=== PATIENT | male | born 1960 | race Caucasian/White ===

== ENCOUNTER 2023-05-18 07:24 | Inpatient (IN) ==
[2023-05-18 08:08] LABS: Basophils # (auto) 0.05 K/uL (0.00-0.20); Basophils % (auto) 0.5 %; Eosinophils # (auto) 0.06 K/uL (0.00-0.50); Eosinophils % (auto) 0.6 %; Hematocrit (blood only) 38.9 % (42.0-52.0); Hemoglobin 12.6 g/dl (14.0-18.0); Immature Granulocytes # (auto) 0.04 K/uL (0.01-0.20); Immature Granulocytes % (auto) 0.4 %; Lymphocytes # (auto) 2.36 K/uL (1.20-3.40); Lymphocytes % (auto) 22.3 %; Mean Corpuscular Hemoglobin 27.7 pg (25.0-34.0); Mean Corpuscular Hgb Conc 32.4 g/dL (32.0-36.0); Mean Corpuscular Volume 85.5 fL (80.0-100.0); Mean Platelet Volume 10.4 fL (9.4-12.4); Monocytes # (auto) 0.76 K/uL (0.11-0.59); Monocytes % (auto) 7.2 %; Neutrophils # (auto) 7.29 K/uL (1.40-6.50); Platelet Count 303 K/uL (130-400); RDW Coefficient of Variation 14.4 % (11.5-14.5); RDW Standard Deviation 44.4 fL (36.4-46.3); Red Blood Count 4.55 M/uL (4.70-6.10); White Blood Count 10.56 K/ul (4.8-10.8)
[2023-05-18 08:29] LABS: Alanine Aminotransferase 23 U/L (7-52); Albumin Globulin Ratio 1.2 (0.9-2); Albumin Level 4.6 gm/dl (3.4-5.0); Alkaline Phosphatase 81 U/L (34-104); Anion Gap 11 (3-11); Bilirubin,Total 0.7 mg/dl (0.2-1.0); Blood Urea Nitrogen 12 mg/dl (6-23); Calcium 9.6 mg/dl (8.6-10.3); Carbon Dioxide 23 mmol/L (21-32); Chloride 102 mmol/L (98-107); Creatinine Clr Calc Pharmacy 125.9 ml/min; Est GFR (African American) 109.4 ml/min; Est GFR (Non-African American) 94.4 ml/min; Globulin 3.9 gm/dl (2.5-4.0); Glucose 180 mg/dl (70-99(Fasting)); Magnesium 1.9 mg/dl (1.7-2.4); Sodium 136 mmol/L (136-145); Total Protein 8.5 gm/dl (6.0-8.3)
--- NOTE | 2023-05-18 08:33 | CT Scan Report ---
CT head/brain wo con CLINICAL HISTORY: 63 years-old Male with AMS. Acutely altered mental status TECHNIQUE: Multiple axial CT images of the head were obtained without contrast. A dose lowering tech nique was utilized adhering to the principles of ALARA. CT DOSE: 625.8 mGy.cm COMPARISON: None. FINDINGS: No acute intracranial hemorrhage, midline shift, intracranial mass, hydrocephalus, territorial ischem ia or abnormal extra-axial collection. Calcifications of the falx cerebri. Mild involutional changes. Study is mildly motion degraded. The calvarium is intact. The paranasal sinuses, mastoid air cells, and middle ear cavities are clear . IMPRESSION: No acute intracranial abnormality. ACT 112: Negative or not required by law. The above report was generated using voice recognition software. It may contain grammatical, syntax o r spelling errors. Electronically signed by: Vicente Farnsworth M.D. 05/18/2023 8:31 AM
--- NOTE | 2023-05-18 08:37 | XRay Report ---
XR chest 1V portable CLINICAL HISTORY: weakness COMPARISON STUDY: No previous studies for comparison. FINDINGS: Lung volumes are at the lower limits of normal. Lungs are clear. There is no pneumothorax o r pleural effusion. The cardiac silhouette is mildly enlarged. Mediastinal contours are normal. There is no evidence for pulmonary edema. IMPRESSION: No acute cardiopulmonary findings. ACT 112: Negative or not required by law. Electronically signed by: Roberto Mane M.D. 05/18/2023 8:35 AM
[2023-05-18] MEDS: QUEtiapine FUMARATE 25 MG TABLET PO STA (08:43)
[2023-05-18] MEDS: SODIUM CHLORIDE 0.9% 1,000 ML IV SCH (08:45)
[2023-05-18 08:57] LABS: Thyroid Stimulating Hormone 4.067 uIu/ml (0.300-4.500)
[2023-05-18 10:21] LABS: Potassium 3.7 mmol/L (3.5-5.1)
[2023-05-18 10:44] LABS: Appearance Urine Clear (Clear); Bacteria Urine Automated Negative (Negative); Bilirubin Urine Negative (Negative); Blood Urine 2+ (Negative); Cast Urine Automated 0 /lpf (0-5); Color Urine Yellow; Epithelial Cell Urine Auto >30 /lpf (0-5); Glucose Urine UA Negative (Negative); Ketones Urine Negative (Negative); Leukocyte Esterase Urine Negative (Negative); Nitrite Urine Negative (Negative); Protein Urine Negative (Negative); RBC Urine Automated 0-4 /hpf (0-4); Specific Gravity Urine 1.007 (1.000-1.030); Urobilinogen Urine Negative (Negative); pH Urine 7.5 (4.5-7.5)
[2023-05-18 11:07] LABS: Amphetamines+Metham, Urine Neg (Neg); Barbiturates, Urine Neg (Neg); Benzodiazepine, Urine Neg (Neg); Cocaine, Urine Neg (Neg); MDMA (Ecstacy), Urine Neg (Neg); Marijuana, Urine Neg (Neg); Methadone, Urine Neg (Neg); Opiate, Urine Neg (Neg); Phencyclidine, Urine Neg (Neg)
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
[2023-05-18] MEDS: LORazepam 1 MG/1 ML SYR ED Inj Use IV STA ×2 (13:29→14:23)
[2023-05-18] MEDS: MULTI-VITAMIN INFUSION 10 ML, THIAMINE HCL 100 MG, FOLIC ACID 1 MG in SODIUM CHLORIDE 0... IV ONE (14:17)
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
[2023-05-18] MEDS: THIAMINE HCL 500 MG in SODIUM CHLORIDE 0.9% 50 ML IV SCH (16:11)
[2023-05-18] MEDS ORDERED: LORazepam 1 MG in SYRINGE 0.5 ML IV PRN (17:01)
[2023-05-18] MEDS ORDERED: ONDANSETRON INJ 2 MG/ML 2 ML VIAL IV PRN (17:01)
[2023-05-18] MEDS ORDERED: POLYETHYLENE (MIRALAX) 17 GM PACK PO PRN (17:01)
[2023-05-18] MEDS ORDERED: ACETAMINOPHEN 325 MG TAB PO PRN (17:01)
[2023-05-18] MEDS ORDERED: GLUCAGON FOR INJ 1 MG VIAL SQ PRN (17:12)
[2023-05-18] MEDS ORDERED: DEXTROSE 50% 50 ML SYRINGE IV PRN (17:12)
[2023-05-18] MEDS ORDERED: GLUCOSE 40% GEL 15 GM TUBE PO PRN (17:12)
[2023-05-18] MEDS ORDERED: GLUCOSE 10 TAB/TUBE PO PRN (17:12)
[2023-05-18] MEDS ORDERED: CARBOHYDRATES FOR HYPOGLYCEMIA PO PRN (17:12)
[2023-05-18] MEDS: METOPROLOL TARTRATE 1 MG/ML VIAL IV STA (18:04)
[2023-05-18] MEDS: ENOXAPARIN INJ 40 MG/0.4 ML SYR SQ SCH (18:05)
[2023-05-18] MEDS: INSULIN ASPART PER UNIT CHARGE SC SCH (21:01)
[2023-05-18] MEDS: METOPROLOL TARTRATE 50 MG TAB PO SCH (21:04)
[2023-05-18] MEDS: QUEtiapine FUMARATE 25 MG TABLET PO SCH (21:04)
--- OUTSIDE RECORDS SUMMARY | 2023-05-19 03:22 | External Medical Summary ---
Author Name Unknown Address Unknown Organization K01:[facility] [place] [address] [place] [address] Laboratory Report Ordering Provider Test Date Status ESTHELAFRANDY 04/02/2023 11:00:02 Final Observation Date Value Abnormality Reference (Units ) Status HbA1C 04/02/2023 11:00:02 7.5 Above high normal 4. 0-5.6 (%) Final The use of HbA1c to monitor glycemic status is based on normal hemoglobin and HbA composition. This test should not be used in patients with abnormal hemoglobin that affects the half life of the red blood cell or the in vivo glycation rates. Glucose, estimated average 04/02/2023 11:00:02 169 Above high normal <126 (mg/dL) Vimal ryan Performing Location [facility] [place] [facility] [address] [place] [address]
--- OUTSIDE RECORDS SUMMARY | 2023-05-19 03:22 | External Medical Summary | Summary of Care ---
Author Name Unknown Organization [facility] Address [address] [place] [address] Phone [phone] Care Team Providers Care Director Of Pulmonary Unit Name Role Phone Rajendra Sanchez MD Primary Care Provider Encounter Details Date Type Department Care Team (Late st Contact Info) Description 04/02/2023 Orders Only Laboratory, [facility] [address] [place] [phone] Armida Boudreaux PA-C [address] [facility] [place], [place] [id number] Diabetic neuropathy (HCC)*; HTN, goal below 140/90; Dyslipidemia, goal LDL below 160; Obstructive sleep apnea syndrome; Esophageal reflux Allergies No known active allergiesdocumented as of this encounter (statuses as of 04/02/2023) Medications Medication Sig Dispensed Refills Start Date End Date Status Nortriptyline HCl 75 MG Oral Capsule Take 1 Capsule by mouth at bedtime. 0 Active Trulicity 0.75 MG/0.5ML Subcutaneous Solution Pen-injector (Dulaglutide) Inject 0.75 mg under the skin once a week. 0 Active lamoTRIgine 100 MG Oral Tablet Take 1 Tablet by mouth in the morning and 1 Tablet before bedtime. 0 Active Pantoprazole Sodium 20 MG Oral Tablet Delayed Release Take 1 Tablet by mouth in the morning. 0 Active Gabapentin 100 MG Oral Capsule (Neurontin) Take 2 Capsules by mouth at bedtime. Takes 100 mg AM and 200 mg PM 0 Active QUEtiapine Fumarate 50 MG Oral Tablet Take 1 Tablet by mouth at bedtime. 0 Active Aspirin 81 MG Oral Tablet Chewable Take 1 Tablet by mouth in the morning. 0 Active Metoprolol Tartrate 50 MG Oral Tablet (Lopressor) Take 1 Tablet by mouth in the morning and 1 Tablet before bedtime. 0 Active Gabapentin 100 MG Oral Capsule (Neurontin) Take 1 Capsule by mouth in the morning. Takes 100 mg AM and 200 mg PM. 0 Active Glimepiride 1 MG Oral Tablet (Amaryl) Take 1 Tablet by mouth daily before breakfast. 0 Active Vitamin D3 25 MCG (1000 UT) Oral Tablet Take 5 Tablets by mouth in the morning. 0 Active metFORMIN HCl 1000 MG Oral Tablet (Glucophage) 0 06/27/2022 Active Benazepril HCl 20 MG Oral Tablet (Lotensin) Take 1 Tablet by mouth in the morning. 1/2 tab daily. 0 Active Melatonin 3 MG Oral Capsule Take 1 Capsule by mouth at bedtime. 0 Active Celecoxib 200 MG Oral Capsule (CeleBREX) Take 1 Capsule by mouth once. TAKE NIGHT BEFORE SURGERY 0 Active Apixaban 2.5 MG Oral Tablet (Eliquis) Take 1 Tablet by mouth in the morning and 1 Tablet before bedtime. Start taking AFTER YOUR SURGERY. Take 1 tablet two times per day for 30 days.. 60 Tablet 0 12/01/2022 Active Additional Information Patient not taking.Reported on 02/05/2023 Acetaminophen 500 MG Oral Capsule Take 2 Capsules by mouth in the morning and 2 Capsules at noon and 2 Capsules before bedtime. 0 12/10/2022 Active traMADol HCl 50 MG Oral Tablet (Ultram) Take 1 Tablet by mouth every 6 hours as needed for Pain, Moderate (May take an additional tablet every 6 hours as needed for severe pain). moderate pain 4-7/10 or severe pain 8-10/10. MMD: 8 tablets/day 30 Tablet 0 12/10/2022 Active Additional Information Patient not taking.Reported on 02/05/2023 hydroCHLOROthiazide 25 MG Oral Tablet (Hydrodiuril) Take 1 Tablet by mouth in the morning. 0 12/17/2018 Active documented as of this encounter (statuses as of 04/02/2023) Active Problems Problem Noted Date Diagnosed Date Primary osteoarthritis of left hip 10/10/2022 Overview: Added automatically from request for surgery [id number] Generalized pain 10/10/2022 Overview: Added automatically from request for surgery [id number] Encounter for therapeutic drug monitoring 2022 Overview: Added automatically from request for surgery [id number] Other specified pre-operative examination 2022 Overview: Added automatically from request for surgery [id number] Dislocation of hip prosthesis 10/10/2022 Anemia 06/09/2021 Sepsis 06/08/2021 Cellulitis of right lower extremity 06/08/2021 Primary hypertension 06/08/2021 Bipolar affective disorder, currently active Elevated liver enzymes 06/08/2021 Type 2 diabetes mellitus wit hout complication, without long-term current use of insulin 06/08/2021 Gastroesophageal reflux disease without esophagi tis 06/08/2021 Primary osteoarthritis of right hip 06/08/2021 MALIA (obstructive sleep apnea) 06/08/2021 Hyperlipidemia 08/29/2011 documented as of this encounter (statuses as of 04/02/2023) Resolved Problems Problem Noted Date Diagnosed Date Resolved Date SBO (small bowel obstruction) 03/12/2022 03/18/2022 High anion gap metabolic acidosis 03/12/2022 03/18/2022 SANDRA (acute kidney injury) 03/12/2022 Shock 03/12/2022 03/18/2022 documented as of this encounter (statuses as of 04/02/2023) Immunizations Name Administration Dates Next Due Seasonal Influenza, PF, 6 M & above, IM , (FluLaval or Fluzone) 03/18/2022 documented as of this encounter Social History Tobacco Use Types Packs/Day Years Used Date Smoking Tobacco: Every Day Cigars Smokeless Tobacco: Former Chew, Snuff Alcohol Use Standard Drinks/Week Comments Not Currently 0 (1 standard drink = 0.6 oz pure alcohol) 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 No 05/28/2022 Are you blind or do you have serious difficulty seeing, even when wearing glasses? No 05/28/2022 Do you have serious difficul ty walking or climbing stairs? (5 years old or older) No 05/28/2022 Do you have difficulty dress ing or bathing? (5 years old or older) No 05/28/2022 Because of a physical, menta l, or emotional condition, do you have difficulty doing errands alone such as visiting a doctor s office or shopping? (15 years old or older) No 05/29/19 Cognitive Status Response Date of Assessm ent Because of a physical, menta l, or emotional condition, do you have serious difficulty concentrating, remembering, or making decisions? (5 years old or older) No 05/28/2022 documented as of this encounter Plan of Treatment Upcoming Encounters Date Type Department Care Team (Late st Contact Info) Description 12/10/2023 3:00 PM EDT Office Visit Orthopaedics [facility] [address] [facility] [address] [place] [phone] Collin Mon MD [address] [place] [address] Pending Results Name Type Priority Associated Diagnoses Date /Time CBC WITH WBC DIFFERENTIAL Lab Routine Diabetic neuropathy (HCC) HTN, goal below 140/90 Dyslipidemia, goal LDL below 160 Obstructive sleep apnea syndrome Esophageal reflux 04/02/2023 11:00 AM EST COMPREHENSIVE METABOLIC PANEL Lab Routine Diabetic neuropathy (HCC) HTN, goal below 140/90 Dyslipidemia, goal LDL below 160 Obstructive sleep apnea syndrome Esophageal reflux 04/02/2023 11:00 AM EST LIPID PANEL WITHOUT DIRECT LDL Lab Routine Diabetic neuropathy (HCC) HTN, goal below 140/90 Dyslipidemia, goal LDL below 160 Obstructive sleep apnea syndrome Esophageal reflux 04/02/2023 11:00 AM EST HEMOGLOBIN A1C Lab Routine Diabetic neuropathy (HCC) HTN, goal below 140/90 Dyslipidemia, goal LDL below 160 Obstructive sleep apnea syndrome Esophageal reflux 04/02/2023 11:00 AM EST Scheduled Orders Name Type Priority Associated Diagnoses Orde r Schedule CBC WITH WBC DIFFERENTIAL Lab Routine Diabetic neuropathy (HCC) HTN, goal below 140/90 Dyslipidemia, goal LDL below 160 Obstructive sleep apnea syndrome Esophageal reflux Expected: 04/02/2023, Expires: 04/02/2024 COMPREHENSIVE METABOLIC PANEL Lab Routine Diabetic neuropathy (HCC) HTN, goal below 140/90 Dyslipidemia, goal LDL below 160 Obstructive sleep apnea syndrome Esophageal reflux Expected: 04/02/2023, Expires: 04/02/2024 LIPID PANEL WITHOUT DIRECT LDL Lab Routine Diabetic neuropathy (HCC) HTN, goal below 140/90 Dyslipidemia, goal LDL below 160 Obstructive sleep apnea syndrome Esophageal reflux Expected: 04/02/2023, Expires: 04/02/2024 HEMOGLOBIN A1C Lab Routine Diabetic neuropathy (HCC) HTN, goal below 140/90 Dyslipidemia, goal LDL below 160 Obstructive sleep apnea syndrome Esophageal reflux Expected: 04/02/2023, Expires: 04/02/2024 ALBUMIN / CREATININE RATIO, URINE Lab Routine Diabetic neuropathy (HCC) HTN, goal below 140/90 Dyslipidemia, goal LDL below 160 Obstructive sleep apnea syndrome Esophageal reflux Expected: 04/02/2023, Expires: 04/02/2024 Health Maintenance Due Date Last Done Comments DISCUSS TOBACCO CESSATION (REFER TO SMARTSET #6967) 1959 COVID-19 Vaccine (#1) 1959 Depression Screening 1971 Diabetic Eye Exam 1977 Diabetic Foot Exam 1977 Hepatitis C Screening 1977 Cologuard 2004 Colonoscopy 2004 Colorectal Cancer Screening 2004 Fecal Occult Blood Test 2004 Sigmoidoscopy 2004 Pneumococcal Vaccine: Pediatrics (0 to 5 Years) and At-Risk Patients (6 to 64 Years) (2 - PCV) 10/31/2008 11/01/2007 Zoster Vaccines (1 of 2) 2009 DTaP,Tdap,and Td Vaccines (2 - Td or Tdap) 03/02/2018 03/02/2008 Hepatitis B (1 of 3 - Risk 3-dose series) 2019 Influenza Vaccine (FLU shot) (#1) 2022 03/18/2022, 03/02/2008, 12/08/2002 Albumin/Creatinine Ratio 02/21/2023 02/21/2022 HbA1c 05/05/2023 11/04/2022, 05/02/2022, 05/29/2022, Additional history exists GFR 12/11/2023 12/10/2022, 10/17, 05/30/2022, Additional history exists Lipid Panel 11/05/2027 11/04/2022, 01/0 07/2022, 02/05/2021, Additional history exists GARDASIL-HPV IMMUNIZATION SERIES Aged Out No longer eligible based on patient's age to complete this topic MENINGOCOCCAL (MENACTRA/MENVEO) Aged Out No longer eligible based on patient's age to complete this topic documented as of this encounter Medical Devices Implanted Type Area Er Rn Device Identifier Shelf Expiration Date Model / Serial / Lot Liner Acetabular [place] Altrx 10d +4mm Od54 Mm Id36 Mm Hip - [id number] Implanted:Qty: 1 on 12/09/2022 by Collin Mon MD at OR [facility] Left: Hip [employer] 10/16/2026 [id number] / / [id number] documented as of this encounter Visit Diagnoses Diagnosis Diabetic neuropathy (HCC)- Primary Type II or unspecified type diabetes mellitus with neurological manifestations, not stated as uncontrolled HTN, goal below 140/90 Unspecified essential hypertension Dyslipidemia, goal LDL below 160 Other and unspecified hyperlipidemia Obstructive sleep apnea syndrome Obstructive sleep apnea (adult) (pediatric) Esophageal reflux documented in this encounter Advance Directives Latest Code Status on File Code Status Date Activated Date Inactivated Comments Full Code 12/09/2022 4:30 PM 12/10/2022 6:45 PM Thi s order reflects the patients wishes and were consensually agreed upon. Question Answer Comments Discussion of Advance Directives occurred with: Not Discussed due to patient's condition Code Status History Code Status Date Activated Date Inactivated Comments Full Code 12/09/2022 8:18 AM 12/09/2022 4:30 PM Thi s order reflects the patients wishes and were consensually agreed upon. Question Answer Comments Discussion of Advance Directives occurred with: Not Discussed due to patient's condition Full Code 05/28/2022 11:56 AM 05/30/2022 3:43 PM This order reflects the patients wishes and were consensually agreed upon. Question Answer Comments Discussion of Advance Directives occurred with: Patient Does the patient have a Living Will? No Does the patient have Health Care Power of Spragger? No Full Code 03/12/2022 1:21 AM 03/18/2022 5:04 PM This order reflects the patients wishes and were consensually agreed upon. Question Answer Comments Discussion of Advance Directives occurred with: Patient Full Code 06/08/2021 12:24 PM 06/10/2021 4:51 PM This order reflects the patients wishes and were consensually agreed upon. Question Answer Comments Discussion of Advance Directives occurred with: Patient Does the patient have a Living Will? No Does the patient have Health Care Power of Spragger? No Care Teams Director Of Pulmonary Unit Relationship Specialty Start Date End Date Rajendra Sanchez MD [address] [place] [address] PCP - General Internal Medicine 04/23/18 documented as of this encounter
--- OUTSIDE RECORDS SUMMARY | 2023-05-19 03:22 | External Medical Summary ---
Author Name Unknown Address Unknown Organization K1G:LABORATORY [facility] - [address] [facility] [address] Laboratory Report Ordering Provider Test Date Status FRANDY PROCTOR 04/02/2023 11:00:02 Final Observation Date Value Abnormality Reference (Units ) Status SYNC LEUKOCYTES IN BLOOD BY AUTOMATED COUNT 04/02/2023 11:00:02 8.73 4.00-10.80 (K/uL) Final Segs 04/02/2023 11:00:02 58.1 40.0-75.0 (%) Final Lymphs % 04/02/2023 11:00:02 31.5 18.0-42.0 (%) Final Monos 04/02/2023 11:00:02 8.8 1.0-11.0 (%) Final Eosinophils 04/02/2023 11:00:02 1.3 0.0-6.0 (%) Final Basos 04/02/2023 11:00:02 0.3 0.0-2.0 (%) Final Absolute Segs 04/02/2023 11:00:02 5.07 1.80-7.70 (K/uL) Final Lymphs, absolute 04/02/2023 11:00:02 2.75 1.00-4.80 (K/ul) Final Monos, Abs 04/02/2023 11:00:02 0.77 0.00-1.10 (K/uL) Final Eos, Abs 04/02/2023 11:00:02 0.11 0.00-0.70 (K/uL) Final Basos, Abs 04/02/2023 11:00:02 0.03 0.00-0.20 (K/uL) Final Performing Location [facility] [address] [facility] [address]
--- OUTSIDE RECORDS SUMMARY | 2023-05-19 03:22 | External Medical Summary ---
Author Name Unknown Address Unknown Organization K1G:LABORATORY [facility] - [address] [facility] [address] Laboratory Report Ordering Provider Test Date Status FRANDY PROCTOR 04/02/2023 11:00:02 Final Observation Date Value Abnormality Reference (Units ) Status BUN 04/02/2023 11:00:02 15 6-20 (mg/dL) Final Creatinine 04/02/2023 11:00:02 0.8 0.6-1.2 (mg/dL) Final Glomerular filtration rate/1.73 sq M.predicted [Volume Rate/Area] in Serum, Plasma or Blood by Creatinine-based formula (CKD-EPI) 04/02/2023 11:00:02 >90 >=60 (mL/min) Final eGFR is calculated based on the CKD-EPI 2020 equation SODIUM 04/02/2023 11:00:02 137 135-146 (m mol/L) Final Potassium 04/02/2023 11:00:02 4.4 3.5-5.1 (m mol/L) Final Cl 04/02/2023 11:00:02 100 98-107 (mm ol/L) Final CO2 04/02/2023 11:00:02 25 22-32 (mmo l/L) Final Anion gap 04/02/2023 11:00:02 12 7-15 (mmol /L) Final Glucose 04/02/2023 11:00:02 133 Above high normal 70 -120 (mg/dL) Final Albumin 04/02/2023 11:00:02 4.1 3.8-5.0 (g /dL) Final AST (Aspartate aminotransferase) 04/02/2023 11:00:02 13 10-50 (U/L) Fin al Alk Phos 04/02/2023 11:00:02 85 35-130 (U/ L) Final Bilirubin, Total 04/02/2023 11:00:02 0.2 <=1 .2 (mg/dL) Final Calcium 04/02/2023 11:00:02 9.1 8.4-10.2 ( mg/dL) Final Protein 04/02/2023 11:00:02 7.5 6.0-8.3 (g /dL) Final ALT (Alanine aminotransferase) 04/02/2023 11:00:02 18 10-50 (U/L) Vimal ryan Performing Location LABORATORY [facility] - [address] [facility] [address]
--- OUTSIDE RECORDS SUMMARY | 2023-05-19 03:22 | External Medical Summary ---
Author Name Unknown Address Unknown Organization K01:[facility] [place] [address] [place] [address] Laboratory Report Ordering Provider Test Date Status FRANDY PROCTOR 04/02/2023 11:09:24 Final Normal: <30 mg/g creatinine< br/>High: 30-300 mg/g creatinine
Very High: >300 mg/g creatinine
Nephrotic: >2200 mg/g creatinine Observation Date Value Abnormality Reference (Units ) Status Albumin, Urine 04/02/2023 11:09:24 1.93 (mg/dL) Final Creatinine, Urine 04/02/2023 11:09:24 206 (mg/dL) Final Albumin/Creatinine [Mass Ratio] in Urine 04/02/2023 11:09:24 9 <30 (mg/g Creat) Final Performing Location [facility] [place] [address] [place] [address]
--- OUTSIDE RECORDS SUMMARY | 2023-05-19 03:22 | External Medical Summary ---
Author Name Unknown Address Unknown Organization K1G:LABORATORY [facility] - [address] [facility] [address] Laboratory Report Ordering Provider Test Date Status FRANDY PROCTOR 04/02/2023 11:00:02 Final Observation Date Value Abnormality Reference (Units ) Status WBC, Total 04/02/2023 11:00:02 8.73 4.00-10.8 0 (K/uL) Final RBC 04/02/2023 11:00:02 4.23 4.50-5.25 (M/uL) Final Hemoglobin 04/02/2023 11:00:02 11.7 Below low normal 14 .0-16.8 (g/dL) Final HCT 04/02/2023 11:00:02 37.4 Below low normal 40. 0-48.4 (%) Final MCV 04/02/2023 11:00:02 88.4 82.0-99.5 (fL) Final MCH 04/02/2023 11:00:02 27.7 27.0-34.0 (pg) Final MCHC 04/02/2023 11:00:02 31.3 32.0-36.0 (g/dL) Final RDW 04/02/2023 11:00:02 13.5 11.5-15.5 (%) Final Platelets 04/02/2023 11:00:02 284 140-400 (K /uL) Final MPV 04/02/2023 11:00:02 10.7 6.6-11.1 ( fL) Final Performing Location [facility] [address] [facility] [address]
--- OUTSIDE RECORDS SUMMARY | 2023-05-19 03:22 | External Medical Summary | Summary of Care ---
Author Name Unknown Organization [facility] Address [address] [place] [address] Phone [phone] Care Team Providers Care Dyed Raw Stock Blower Feeder Name Role Phone Rajendra Sanchez MD Primary Care Provider Reason for Visit * Reason Comments Outpatient Testing Encounter Details Date Type Department Care Team (Late st Contact Info) Description 04/02/2023 10:50 AM EST Laboratory Laboratory, [id number] [place] [address] Gj, Lab [facility] [place] [address] Diabetic neuropathy (HCC); HTN, goal below 140/90; Dyslipidemia, goal LDL [...] Overview: Added automatically from request for surgery [id number] Generalized pain 10/10/2022 Overview: Added automatically from request for surgery [id number] Encounter for therapeutic drug monitoring 2022 Overview: Added automatically from request for surgery [id number] Other specified pre-operative examination 2022 Overview: Added automatically from request for surgery [id number] Dislocation of hip prosthesis 10/10/2022 Anemia 06/09/2021 [...] 12/10/2023 3:00 PM EDT Office Visit Orthopaedics [facility] [address] [facility] [address] [place] [phone] Collin Mon MD [address] [place] [address] Pending Results Name Type Priority Associated Diagnoses Date /Time LIPID PANEL WITHOUT DIRECT LDL Lab Routine Diabetic neuropathy (HCC) HTN, goal below 140/90 Dyslipidemia, goal LDL below 160 Obstructive sleep apnea syndrome Esophageal reflux 04/02/2023 11:00 AM EST HEMOGLOBIN A1C Lab Routine Diabetic neuropathy (HCC) HTN, goal below 140/90 Dyslipidemia, goal LDL below 160 Obstructive sleep apnea syndrome Esophageal reflux 04/02/2023 11:00 AM EST ALBUMIN / CREATININE RATIO, URINE Lab Routine Diabetic neuropathy (HCC) HTN, goal below 140/90 Dyslipidemia, goal LDL below 160 Obstructive sleep apnea syndrome Esophageal reflux 04/02/2023 11:09 AM EST Health Maintenance Due Date Last Done Comments DISCUSS TOBACCO CESSATION (REFER TO SMARTSET #5112) 1960 COVID-19 Vaccine (#1) 1960 Depression Screening [...] Albumin/Creatinine Ratio 02/21/2023 02/21/2022 HbA1c 05/05/2023 11/04/2022, 06/18, 05/29/2022, Additional history exists GFR 04/02/2024 04/02/2023, 11/17, 11/04/2022, Additional history exists Lipid Panel 11/05/2027 11/04/2022, 07/2022, 02/05/2021, Additional history exists GARDASIL-HPV IMMUNIZATION SERIES Aged Out No longer eligible based on patient's age to complete this topic MENINGOCOCCAL (MENACTRA/MENVEO) Aged Out No longer eligible based on patient's age to complete this topic documented as of this encounter Medical Devices Implanted Type Area Applications Support Lead Device Identifier Shelf Expiration Date Model / Serial / Lot Liner Acetabular [place] Altrx 10d +4mm Od54 Mm Id36 Mm Hip - [id number] Implanted:Qty: 1 on 12/09/2022 by Collin Mon MD at OR [facility] Left: Hip [employer] DEPU[employer] 10/16/2026 [id number] / / [id number] documented as of this encounter Procedures Procedure Name Priority Date/Time Associated Diagnosis Comments DIFFERENTIAL, AUTOMATED Routine 04/02/2023 11:00 AM EST Diabetic neuropathy (HCC) HTN, goal below 140/90 Dyslipidemia, goal LDL below 160 Obstructive sleep apnea syndrome Esophageal reflux COMPREHENSIVE METABOLIC PANEL Routine 04/02/2023 11:00 AM EST Diabetic neuropathy (HCC) HTN, goal below 140/90 Dyslipidemia, goal LDL below 160 Obstructive sleep apnea syndrome Esophageal reflux CBC Routine 04/02/2023 11:00 AM EST Diabetic neuropathy (HCC) HTN, goal below 140/90 Dyslipidemia, goal LDL below 160 Obstructive sleep apnea syndrome Esophageal reflux CBC Routine 04/02/2023 11:00 AM EST Diabetic neuropathy (HCC) HTN, goal below 140/90 Dyslipidemia, goal LDL below 160 Obstructive sleep apnea syndrome Esophageal reflux documented in this encounter Results * DIFFERENTIAL, AUTOMATED (04/02/2023 11:00 AM EST) WBC 8.73 4.00 - 10.80 K/uL 04/02/2023 11:37 AM EST LABORATORY [facility] Neutrophils % 58.1 40.0 - 75.0 % 04/02/2023 11:37 AM EST LAB[facility]ATORY [facility] Lymphocytes % 31.5 18.0 - 42.0 % 04/02/2023 11:37 AM EST LAB[facility]ATORY [facility] Monocytes % 8.8 1.0 - 11.0 % 04/02/2023 11:37 AM EST LAB[facility]ATORY [facility] Eosinophils % 1.3 0.0 - 6.0 % 04/02/2023 11:37 AM EST LAB[facility]ATORY [facility] Basophils % 0.3 0.0 - 2.0 % 04/02/2023 11:37 AM EST LAB[facility]ATORY [facility] Absolute Neutrophils 5.07 1.80 - 7.70 K/uL 04/02/2023 11:37 AM EST LAB[facility]ATORY [facility] Absolute Lymphocytes 2.75 1.00 - 4.80 K/ul 04/02/2023 11:37 AM EST LAB[facility]ATORY [facility] Absolute Monocytes 0.77 0.00 - 1.10 K/uL 04/02/2023 11:37 AM EST LAB[facility]ATORY [facility] Absolute Eosinophils 0.11 0.00 - 0.70 K/uL 04/02/2023 11:37 AM EST LAB[facility]ATORY [facility] Absolute Basophils 0.03 0.00 - 0.20 K/uL 04/02/2023 11:37 AM EST LAB[facility]ATORY [facility] Blood Venous blood specimen / Unknown Venipuncture / Unknown 04/02/2023 11:00 AM EST 04/02/2023 11:13 AM EST Armida Boudreaux PA-C LAB BLOOD O RDERABLES LABORATORY [address] [address] * (ABNORMAL) CBC (04/02/2023 11:00 AM EST) Pathologist [facility] WBC 8.73 4.00 - 10.80 K/uL 04/02/2023 11:37 AM EST LABORATORY [facility] RBC 4.23 4.50 - 5.25 M/uL 04/02/2023 11:37 AM EST LABORATORY [facility] HGB 11.7(L) 14.0 - 16.8 g/dL 04/02/2023 11:37 AM EST LABORATORY [facility] HCT 37.4(L) 40.0 - 48.4 % 04/02/2023 11:37 AM EST LABORATORY [facility] MCV 88.4 82.0 - 99.5 fL 04/02/2023 11:37 AM EST LABORATORY [facility] MCH 27.7 27.0 - 34.0 pg 04/02/2023 11:37 AM EST LABORATORY [facility] MCHC 31.3 32.0 - 36.0 g/dL 04/02/2023 11:37 AM EST LABORATORY [facility] RDW 13.5 11.5 - 15.5 % 04/02/2023 11:37 AM EST LABORATORY [facility] PLT 284 140 - 400 K/uL 04/02/2023 11:37 AM EST LABORATORY [facility] MPV 10.7 6.6 - 11.1 fL 04/02/2023 11:37 AM EST LABORATORY [facility] Blood Venous blood specimen / Unknown Venipuncture / Unknown 04/02/2023 11:00 AM EST 04/02/2023 11:13 AM EST Armida Boudreaux PA-C LAB BLOOD [facility] LABORATORY [address] [address] * (ABNORMAL) COMPREHENSIVE METABOLIC PANEL (04/02/2023 11:00 AM EST) Pathologist [facility] BUN 15 6 - 20 mg/dL 04/02/2023 11:48 AM EST LABORATORY [facility] Creatinine 0.8 0.6 - 1.2 mg/dL 04/02/2023 11:48 AM EST LABORATORY [facility] Estimated Glomerular Filtration Rate >90 >=60 mL/min 04/02/2023 11:48 AM EST LABORATORY [facility] Comment:eGFR is calculated b ased on the CKD-EPI 2020 equation Sodium 137 135 - 146 mmol/L 04/02/2023 11:48 AM EST LABORATORY [facility] Potassium 4.4 3.5 - 5.1 mmol/L 04/02/2023 11:48 AM EST LABORATORY [facility] Chloride 100 98 - 107 mmol/L 04/02/2023 11:48 AM EST LABORATORY [facility] CO2 25 22 - 32 mmol/L 04/02/2023 11:48 AM EST LABORATORY [facility] Anion Gap 12 7 - 15 mmol/L 04/02/2023 11:48 AM EST LABORATORY [facility] Glucose 133(H) 70 - 120 mg/dL 04/02/2023 11:48 AM EST LABORATORY [facility] Albumin 4.1 3.8 - 5.0 g/dL 04/02/2023 11:48 AM EST LABORATORY [facility] AST 13 10 - 50 U/L 04/02/2023 11:48 AM EST LABORATORY [facility] Alkaline Phosphatase 85 35 - 130 U/L 04/02/2023 11:48 AM EST LABORATORY [facility] Bilirubin, Total 0.2 <=1.2 mg/dL 04/02/2023 11:48 AM EST LABORATORY [facility] Calcium 9.1 8.4 - 10.2 mg/dL 04/02/2023 11:48 AM EST LABORATORY [facility] Protein 7.5 6.0 - 8.3 g/dL 04/02/2023 11:48 AM EST LABORATORY [facility] ALT 18 10 - 50 U/L 04/02/2023 11:48 AM EST LABORATORY [facility] Blood Venous blood specimen / Unknown Venipuncture / Unknown 04/02/2023 11:00 AM EST 04/02/2023 11:13 AM EST Armida Boudreaux PA-C LAB BLOOD O RDERABLES LABORATORY [facility] [address] [place] [address] documented in this encounter Visit Diagnoses Diagnosis Diabetic neuropathy (HCC) Type II or unspecified type diabetes mellitus [...] the patient have Health Care Power of Sort Worker? No Full Code 03/12/2022 1:21 AM 03/18/2022 [...] the patient have Health Care Power of Sort Worker? No Care Teams Dyed Raw Stock Blower Feeder Relationship Specialty Start Date End Date Rajendra Sanchez MD [address] [place] [address] PCP - General Internal Medicine 04/23/18 documented as of this encounter
--- OUTSIDE RECORDS SUMMARY | 2023-05-19 03:23 | External Medical Summary | Summary of Care ---
Author Name Unknown Organization [facility] Address [address] [place] [address] Phone [phone] Care Team Providers Care Duct Layer Supervisor Name Role Phone Rajendra Sanchez MD Primary Care Provider Reason for Visit * Reason Comments Pain Limited Range Of Motion Muscle Weakness Abnormal Gait * Evaluate & Treat - Unlimited Visits (Within 10 days (routine)) - Authorized Specialty Diagnoses / Procedures Referred By Contac t Referred To Contact Physical Medicine and Rehab / Physical Medicine And Rehab Diagnoses Primary osteoarthritis of left hip Rajendra Sanchez MD [address] [place] [address] [address] Referral ID Status Reason Start Date Expiration Date Visits Requested Visits Authorized [id number] Authorized Specialty Services Required 02/15/2023 Encounter Details Date Type Department Care Team (Late st Contact Info) Description 01/12/2023 10:30 AM EST Rehab Services Physical Therapy, [facility] [address] [place] [address] Elda Espinosa SUPERVISOR [employer] [address] [place] [address] Muscle weakness*; Limited joint range of motion (ROM); Status post total hip replacement, left Allergies No known active allergiesdocumented as of this encounter (statuses as of 01/13/2023) Medications Medication Sig Dispensed Refills Start Date [...] 30 days.. 60 Tablet 0 12/01/2022 Active Acetaminophen 500 MG Oral Capsule Take 2 [...] 8 tablets/day 30 Tablet 0 12/10/2022 Active hydroCHLOROthiazide 25 MG Oral Tablet (Hydrodiuril) Take 1 Tablet by mouth in the morning. 0 12/17/2018 Active documented as of this encounter (statuses as of 01/13/2023) Active Problems Problem Noted Date Diagnosed Date Primary osteoarthritis of left hip 10/10/2022 Overview: Added automatically from request for surgery [id number] Generalized pain 10/10/2022 Overview: Added automatically from request for surgery [id number] Encounter for therapeutic drug monitoring 2022 Overview: Added automatically from request for surgery [id number] Other specified pre-operative examination 2022 Overview: Added automatically from request for surgery [id number] Dislocation of hip prosthesis 10/10/2022 Anemia 06/09/2021 [...] as of this encounter (statuses as of 01/13/2023) Resolved Problems Problem Noted Date Diagnosed Date Resolved Date SBO (small bowel obstruction) 03/12/2022 03/18/2022 High anion gap metabolic acidosis 03/12/2022 03/18/2022 SANDRA (acute kidney injury) 03/12/2022 Shock 03/12/2022 03/18/2022 documented as of this encounter (statuses as of 01/13/2023) Immunizations Name Administration Dates Next Due SEASONAL INFLUENZA, PF, 6 M & Above, IM , (FLULAVAL or FLUZONE) 03/18/2022 documented as of this encounter Social [...] No 05/28/2022 documented as of this encounter Progress Notes * Elda Espinosa, DANIELLE - 01/12/2023 10:30 AM EST Outpatient Physical Therapy Daily Progress Note Physical Therapy, [place] [address] Patient Name: Remy Hillman Date of : 1960 Age: [age] year old Date: 01/12/2023 Onset Date: 12/09/2022 Start of Care: 12/12/2022 Plan of Care Expiration Date: 02/13/2023 Visit Number: [id number] Precertification dates/visits: 28 Referring Physician: Collin Mon MD Primary Care Physician: Rajendra Sanchez MD Encounter Diagnosis: Left total hip replacement Orders: Postop evaluate and treat Precautions: Anterior approach. Subjective: Pt reported that he is having 0/10 pain. Reported he continues to work 3 days a week and has not returned full duty yet. Pt reported that he can't go to 4 days of working until January 22, 2023. Pt reported that walking longer distances is still hard and he has not been able to get onhis bike at home. Reported that he is still using two hand railings at home when ascending/descending stairs. Pt reported that he see's the benefit of coming to therapy although does not like to be apatient and would like to be done his next visit. Objective: Pt completed one on one TE x 45 minutes to increase strength and mobility in the L LE following THR. The following exercises were performed: Bike: seat 10 x 5 minutes Long arc quads-5# 30x Seated toe raises: 7.5# 30x-did not do today at home at home Short arc quads:5# 30x-did not do today Supine hip abduction-30x 2# home Mini [id number] given Standing leg curl-3x10 (progressed 01/12) Straight leg raise-2x10 independently-did not do today Standing Heel Raises: 3-way 10x each-HEP given Standing [id number] (progressed 01/12)-HEP given Standing hip [id number] (progressed 01/12)-HEP given Standing Hamstrings Stretch: 3x20 seconds bilaterally-HEP given Standing Calf Stretch: 3x20 seconds bilaterally-HEP given FUNCTIONAL OUTCOME MEASURES: Lower Extremity Functional Scale (LEFS) - score 52/80 equals 35% impairment; previous score 29/80 equals 63.75% impairment Assessment: Pt is a 62 y.o. male who underwent a L THR on 12/09/2022. Pt is currently working 3 days a week and will be able to start 4 days starting on January 22. Pt is working on returning to work for 5 days. Pt is still working on LTG although STG have been achieved. Pt also showed improvements on LEFS today. Pt is getting around better although continues to use SPC, still has difficulty walking longer distances, and is working on hip strengthening. Pt reviewed all standing exercises today including stretches as pt continues to perform stretching incorrectly. Pt was given a second HEP for exercises. It was discussed with pt that not all goals were achieved and encouraged pt to come to therapy at least once more with supervising PT; pt verbalized understanding agreeing to come to therapy on Thursday. Pt continues to have limited motion and decreased strength indicating need for more therapy. Goals ongoing. Short Term Goals: 4 weeks Initiate Home Exercise Program Reduce pain to less than 4/10 consistently-0/10 pain achieved Improve ROM to WFL Improve strength by grade-Achieved Increase ambulation to functional community distance with appropriate assistive device-achieved Burglar Alarm Inspector Goals: 6 weeks Independent with Home Exercise Program Reduce pain to less than 2/10-achieved Improve ROM to WNL for a right total hip replacement-achieved Improve strength to 5/5 in quads, hamstrings and 4/5 in hip and 3/5 in plantar flexors: ongoing L hip flexion is 4-/5 Independent ambulation on level surfaces without assistive device Negotiate steps with reciprocal pattern and 1 handrail-ongoing;still utilizing 2 hand railings Return to work without restrictions-still only working 3 days a week Improve score on lower extremity functional scale Plan: Pt would like to come one more session with supervising PT for discharge. Pt is [facility] working[facility] UNTIMED SERVICES: 0 MINUTES TIMED SERVICES: 45 MINUTES TOTAL TIMES: 45 MINUTES Elda Espinosa PTA 01/12/2023 10:30-11:15 AM documented in this encounter Plan of Treatment Upcoming Encounters Date Type Department Care Team (Late st Contact Info) Description 01/14/2023 10:30 AM EST Rehab Services Physical Therapy, [address] [id number] [place] [address] Criss Lewis, PT [facility] [place] [address] 02/05/2023 2:50 PM EST Office Visit Orthopaedics [facility] [address] [place] [address] Collin Mon MD [address] [place] [address] Health Maintenance Due Date Last Done Comments DISCUSS TOBACCO CESSATION (REFER TO SMARTSET #3291) 1960 COVID-19 Vaccine (#1) 1960 Depression Screening [...] this encounter Medical Devices Implanted Type Area Repair Manager Device Identifier Shelf Expiration Date Model / Serial / Lot Liner Acetabular [place] Altrx 10d +4mm Od54 Mm Id36 Mm Hip - [id number] Implanted:Qty: 1 on 12/09/2022 by Collin Mon MD at OR [facility] Left: Hip [employer] DEPUY 10/16/2026 [id number] / / [id number] documented as of this encounter Visit Diagnoses Diagnosis Muscle weakness- Primary Muscle weakness (generalized) Limited joint range of motion (ROM) Status post total hip replacement, left documented in this encounter Advance Directives Latest [...] the patient have Health Care Power of E Commerce Web Developer? No Full Code 03/12/2022 1:21 AM 03/18/2022 [...] the patient have Health Care Power of E Commerce Web Developer? No Care Teams Duct Layer Supervisor Relationship Specialty Start Date End Date Rajendra Sanchez MD [address] [place] [address] PCP - General Internal Medicine 04/23/18 documented as of this encounter
--- OUTSIDE RECORDS SUMMARY | 2023-05-19 03:23 | External Medical Summary | Summary of Care ---
Author Name Unknown Organization [facility] [address] Address [address] [place] [address] Care Team Providers Care Director Craft Center Name Role Phone Rajendra Sanchez MD Primary Care Provider Reason for Visit * Reason Comments Post-Op LTHR 12/09/22 Encounter Details Date Type Department Care Team (Latest Contact Info) Description 02/05/2023 2:50 PM EST Office Visit Orthopaedics [facility] [address] [facility] [address] [phone] Collin Mon MD [address] [facility] [address] [place] [address] Aftercare following surgery of the musculoskeletal system* Allergies No known active allergiesdocumented as of this encounter (statuses as of 02/05/2023) Medications Medication Sig Dispensed Refills Start Date [...] as of this encounter (statuses as of 02/05/2023) Active Problems Problem Noted Date Diagnosed Date Primary osteoarthritis of left hip 10/10/2022 Overview: Added automatically from request for surgery [id number] Generalized pain 10/10/2022 Overview: Added automatically from request for surgery [id number] Encounter for therapeutic drug monitoring 2022 Overview: Added automatically from request for surgery [id number] Other specified pre-operative examination 2022 Overview: Added automatically from request for surgery [id number] Dislocation of hip prosthesis 10/10/2022 Anemia 06/09/2021 [...] as of this encounter (statuses as of 02/05/2023) Resolved Problems Problem Noted Date Diagnosed Date Resolved Date SBO (small bowel obstruction) 03/12/2022 03/18/2022 High anion gap metabolic acidosis 03/12/2022 03/18/2022 SANDRA (acute kidney injury) 03/12/2022 Shock 03/12/2022 03/18/2022 documented as of this encounter (statuses as of 02/05/2023) Immunizations Name Administration Dates Next Due Seasonal [...] as of this encounter Progress Notes * Collin Mon MD - 02/05/2023 3:21 PM EST 62 year old here for an 8 week follow-up status post left total hip replacement. Doing well. No abnormal complaints or concerns. He is no longer taking pain medications. He would like a work note without restrictions. Imaging: AP pelvis and lateral x-rays of the left hip taken today and reviewed show a well-positioned well aligned hip replacement with no loosening, subsidence, fractures, or osteolysis. Exam: Incision looks good. Excellent range of motion. Good strength. Impression: Status post left total hip replacement, doing well. Recommendations: Doing well. Activities as tolerated without restrictions. Follow-up in 10 months for 1 year recheck with x-rays. documented in this encounter Nursing Notes * Wendy Parsons MED ASSIST - 02/05/2023 3:02 PM EST S/p LTHR; he is doing well, no concerns or complaints. He is no longer taking pain medications. 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 documented in this encounter Plan of Treatment Upcoming Encounters Date Type Department Care Team (Late st Contact Info) Description 12/10/2023 3:00 PM EDT Office Visit Orthopaedics [facility] [facility] [address] [place] [phone] Collin Mon MD [address] [facility] [facility] [address] [place] [address] Pending Results Name Type Priority Associated Diagnoses Date /Time XR HIP 1 VIEW INCLUDING AP PELVIS Medical Imaging Routine Aftercare following surgery of the musculoskeletal system 02/05/2023 3:24 PM EST Health Maintenance Due Date Last Done [...] Albumin/Creatinine Ratio 02/21/2023 02/21/2022 HbA1c 05/05/2023 11/04/2022, 0502/2022, 05/29/2022, Additional history exists GFR 12/11/2023 12/10/2022, 10/17, 05/30/2022, Additional history exists Lipid Panel 11/05/2027 11/04/2022, 07/2022, 02/05/2021, Additional history exists GARDASIL-HPV IMMUNIZATION SERIES Aged Out No longer eligible based on patient's age to complete this topic MENINGOCOCCAL (MENACTRA/MENVEO) Aged Out No longer eligible based on patient's age to complete this topic documented as of this encounter Medical Devices Implanted Type Area Manager Food Beverage Device Identifier Shelf Expiration Date Model / Serial / Lot Liner Acetabular Challis Altrx 10d +4mm Od54 Mm Id36 Mm Hip - [id number] Implanted:Qty: 1 on 12/09/2022 by Collin Mon MD at [facility] Left: Hip [employer] DEPUY 10/16/2026 [id number] / / [id number] documented as of this encounter Visit Diagnoses Diagnosis Aftercare following surgery of the musculoskeletal system- Primary Aftercare following surgery of the musculoskeletal system, NEC documented in this encounter Advance Directives Latest [...] the patient have Health Care Power of Pattern Grader? No Full Code 03/12/2022 1:21 AM 03/18/2022 5:04 PM This order reflects the patients wishes and were consensually agreed upon. Question Answer Comments Discussion of Advance Directives occurred with: Patient Full Code 06/08/2021 12:24 PM 06/10/2021 4:51 PM Thi s order reflects the patients wishes and were consensually agreed upon. Question Answer Comments Discussion of Advance Directives occurred with: Patient Does the patient have a Living Will? No Does the patient have Health Care Power of Pattern Grader? No Care Teams Director Craft Center Relationship Specialty Start Date End Date Rajendra Sanchez MD [address] [place] [address] PCP - General Internal Medicine 04/23/18 documented as of this encounter
--- OUTSIDE RECORDS SUMMARY | 2023-05-19 03:23 | External Medical Summary | Summary of Care ---
Author Name Unknown Organization [facility] Address [address] [place] [address] Care Team Providers Care Senior Clinical Consultant Name Role Phone Rajendra Sanchez MD Primary Care Provider Reason for Visit * Reason Onset Date Comments Advice 01/06/2023 Encounter Details Date Type Department Care Team (Late st Contact Info) Description 01/06/2023 Telephone Orthopaedics [facility] [address] [facility] [address] [place] [phone] Collin Mon MD [address] [place] [address] Advice Allergies No known active allergiesdocumented as of this encounter (statuses as of 01/29/2023) Medications Medication Sig Dispensed Refills Start Date [...] as of this encounter (statuses as of 01/29/2023) Active Problems Problem Noted Date Diagnosed Date Primary osteoarthritis of left hip 10/10/2022 Overview: Added automatically from request for surgery [id number] Generalized pain 10/10/2022 Overview: Added automatically from request for surgery [id number] Encounter for therapeutic drug monitoring 2022 Overview: Added automatically from request for surgery [id number] Other specified pre-operative examination 2022 Overview: Added automatically from request for surgery [id number] Dislocation of hip prosthesis 10/10/2022 Anemia 06/09/2021 [...] as of this encounter (statuses as of 01/29/2023) Resolved Problems Problem Noted Date Diagnosed Date Resolved Date SBO (small bowel obstruction) 03/12/2022 03/18/2022 High anion gap metabolic acidosis 03/12/2022 03/18/2022 SANDRA (acute kidney injury) 03/12/2022 Shock 03/12/2022 03/18/2022 documented as of this encounter (statuses as of 01/29/2023) Immunizations Name Administration Dates Next Due Seasonal [...] (15 years old or older) No 05/29/19 23 Cognitive Status Response Date of Assessm ent Because of a physical, menta l, or emotional condition, do you have serious difficulty concentrating, remembering, or making decisions? (5 years old or older) No 05/28/2022 documented as of this encounter Miscellaneous Notes * Addendum Note - Wendy Parsons MED ASSIST - 01/29/2023 8:40 AM EST Addended by: WENDY PARSONS on: 01/29/2023 08:40 AM Modules accepted: Orders * Addendum Note - Mima Shipley LPN - 01/07/2023 9:27 AM ESTAddended by: MIMA SHIPLEY on: 01/07/2023 09:27 AM Modules accepted: Orders * Telephone Encounter - Mima Shipley LPN - 01/06/2023 2:54 PM EST Pt called asking if he can increase working 4 days/week starting on 01-26-23 as his appt had to be rescheduled to 02-05-23 for a follow up post left ZENA done on 12-09-22. OK to do? Please call pt then and he will have the fax number for the work note. Thanks! documented in this encounter Plan of Treatment Upcoming Encounters Date Type Department Care Team (Late st Contact Info) Description 02/05/2023 2:50 PM EST Office Visit Orthopaedics [facility] [address] [facility] [place] [phone] Collin Mon MD [address] [facility] [place] [address] Health Maintenance Due Date Last Done Comments DISCUSS TOBACCO CESSATION (REFER TO SMARTSET #7444) 1960 COVID-19 Vaccine (#1) 1960 Depression Screening [...] 11/04/2022, 06/18, 05/29/2022, Additional history exists GFR 12/11/2023 12/10/2022, 10/17, 05/30/2022, Additional history exists Lipid Panel 11/05/2027 11/04/2022, 07/2022, 02/05/2021, Additional history exists GARDASIL-HPV IMMUNIZATION SERIES Aged Out No longer eligible based on patient's age to complete this topic MENINGOCOCCAL (MENACTRA/MENVEO) Aged Out No longer eligible based on patient's age to complete this topic documented as of this encounter Medical Devices Implanted Type Area Chef & Owner Device Identifier Shelf Expiration Date Model / Serial / Lot Liner Acetabular Hustle Altrx 10d +4mm Od54 Mm Id36 Mm Hip - [id number] Implanted:Qty: 1 on 12/09/2022 by Collin Mon MD at [facility] Left: Hip [employer] DEPU[employer] 10/16/2026 [id number] / / [id number] documented as of this encounter Visit Diagnoses Diagnosis Aftercare following surgery of the musculoskeletal system- Primary Aftercare following surgery of the musculoskeletal system, NEC Primary osteoarthritis of left hip Primary localized osteoarthrosis, pelvic region and thigh documented in this encounter Advance Directives Latest [...] the patient have Health Care Power of General Accounting Manager? No Full Code 03/12/2022 1:21 AM 03/18/2022 [...] the patient have Health Care Power of General Accounting Manager? No Care Teams Senior Clinical Consultant Relationship Specialty Start Date End Date Rajendra Sanchez MD [address] [place] [address] [address] PCP - General Internal Medicine 04/23/18 documented as of this encounter
--- OUTSIDE RECORDS SUMMARY | 2023-05-19 03:23 | External Medical Summary | Summary of Care ---
Author Name Unknown Organization [facility] Address [address] [place] [address] Phone [phone] Care Team Providers Care Traffic Signal Technician Name Role Phone Rajendra Sanchze MD Primary Care Provider Reason for Visit * Reason Comments Post-Op * Evaluate & Treat - Unlimited Visits (Within 10 days (routine)) - Closed Specialty Diagnoses / Procedures Referred By Contac t Referred To Contact Physical Medicine and Rehab / Physical Medicine And Rehab Diagnoses Primary osteoarthritis of left hip Rajendra Sanchez MD [address] [place] [address] [place] [address] Referral ID Status Reason Start Date Expiration Date V isits Requested Visits Authorized [id number] Closed Specialty Services Required 12/12/2022 02/15/2023 28 28 Encounter Details Date Type Department Care Team (Late st Contact Info) Description 01/14/2023 10:30 AM EST Rehab Services Physical Therapy, [facility] [address] [phone] Criss Lewis, PT [address] [place] [address] Status post total hip replacement, left*; Muscle weakness Allergies No known active allergiesdocumented as of this encounter (statuses as of 01/15/2023) Medications Medication Sig Dispensed Refills Start Date [...] as of this encounter (statuses as of 01/15/2023) Active Problems Problem Noted Date Diagnosed Date Primary osteoarthritis of left hip 10/10/2022 Overview: Added automatically from request for surgery [id number] Generalized pain 10/10/2022 Overview: Added automatically from request for surgery [id number] Encounter for therapeutic drug monitoring 2022 Overview: Added automatically from request for surgery [id number] Other specified pre-operative examination 2022 Overview: Added automatically from request for surgery [id number] Dislocation of hip prosthesis 10/10/2022 Anemia 06/09/2021 [...] as of this encounter (statuses as of 01/15/2023) Resolved Problems Problem Noted Date Diagnosed Date Resolved Date SBO (small bowel obstruction) 03/12/2022 03/18/2022 High anion gap metabolic acidosis 03/12/2022 03/18/2022 SANDRA (acute kidney injury) 03/12/2022 Shock 03/12/2022 03/18/2022 documented as of this encounter (statuses as of 01/15/2023) Immunizations Name Administration Dates Next Due SEASONAL [...] as of this encounter Progress Notes * Criss Lewis, PT - 01/14/2023 10:38 AM EST OUTPATIENT PHYSICAL THERAPY DISCHARGE SUMMARY [facility] Patient Name: Remy Hillman Insurance: Payor: [facility] [employer] [facility] O Plan: [facility] Product Type: *No Product type* Payor: [facility] Plan: [place] Product Type: *No Product type* Date: 01/14/2023 Visit Number: [id number] Encounter Diagnosis: Left total hip replacement December 09, 2022 Subjective: The patient reports that he would like today to be as last day. He is 5 weeks postop left total hip replacement. Reports he will do his exercises at home. Reports 1 of his biggest issues his balance and he knows some of it is because he can not feel the bottom of his feet because he hasa lot and neuropathy. Pain Ratin/10 Objective: The patient's left hip range of motion is within functional limits. His left lower extremity muscle strength is as follows: Quads-5/5. Hamstrings- 4/5. Left hip flexion 4/5. Left hip abduction 4-/5. And plantar flexion-3+/5. He is ambulating on level surfaces with a cane for long distances and outside of the house and sometimes no device in the house. He says he is going up and down stairs without much difficulty. Today we focused on all the exercises he should be doing at home and I made sure he was doing them correctly. He improved from a 67.5% impairment to a 32.5% impairment on his lower extremity functional index. ~~~~~~~~~~~~~~~~~~~~~~~~~~~~~~~~~~~~~~~~~~~~~~~~~~~~~~~~~~~~~~ ~~~~~~~~~~~~~~~~~~~~~~~~~~~~~~~~~~~~~~~~~~~~~~~~~~~~~~~~~~~~~~ UNTIMED SERVICES: TIMED SERVICES: 40 minutes Therapeutic Exercises: Standing toe raises Mini squats Xap-ju-gtjdq squats Standing hip abduction Standing hip extension Standing marches Lateral step-ups Forward step-ups Standing knee flexion Side-lying hip abduction Bridging ~~~~~~~~~~~~~~~~~~~~~~~~~~~~~~~~~~~~~~~~~~~~~~~~~~~~~~~~~~~~~~ ~~~~~~~~~~~~~~~~~~~~~~~~~~~~~~~~~~~~~~~~~~~~~~~~~~~~~~~~~~~~~~ PATIENT EDUCATION AND HOME EXERCISE PROGRAM: Person(s) Taught: Patient Topic: Home Exercise Program see above exercises, Discussed present condition, treatment rationale and progression of treatment, and Other: We also discussed riding the stationary bike at the [facility] Method: Verbal, Demonstration, and Written Outcome: Patient verbalizes understanding and Patient demonstrates understanding ASSESSMENT: Patient made good progress in physical therapy. His pain is decreased. His gait is improved. He still does not have a lot of toe off during gait but he has not had any toe off for many years due to neuropathy and numbness in both feet. His short-term goals have been achieved. Most of his long-term goals have been achieved and what is not achieved to work on via home exercise program. Short Term Goals: 4 weeks Initiate Home Exercise Program -achieved Reduce pain to less than 4/10 consistently-achieved Improve ROM to WFL-achieved Improve strength by grade-achieved Increase ambulation to functional community distance with appropriate assistive device-achieved Nursing Home Goals: 6 weeks Independent with Home Exercise Program-achieved Reduce pain to less than 2/10-achieved Improve ROM to WNL for a right total hip replacement-achieved Improve strength to 5/5 in quads, hamstrings and 4/5 in hip and 3/5 in plantar flexors-achieved except for hip abduction strength which he will work on via home exercise program Independent ambulation on level surfaces without assistive device -achieved but not for all distances and outside of the house yet Negotiate steps with reciprocal pattern and 1 handrail-achieved Return to work without restrictions-patient back part-time in his working towards full-time next month Improve score on lower extremity functional scale-achieved PLAN: Discharge to home exercise program Criss Lewis, PT 01/14/2023 Physical Therapy, [place] [phone] documented in this encounter Plan of Treatment Upcoming Encounters Date Type Department Care Team (Late st Contact Info) Description 02/05/2023 2:50 PM EST Office Visit Orthopaedics [facility] [address] [facility] [address] [place] [phone] Collin Mon MD [address] [place] [address] Health Maintenance Due Date Last Done Comments [...] this encounter Medical Devices Implanted Type Area Gizzard Peeler Device Identifier Shelf Expiration Date Model / Serial / Lot Liner Acetabular Alna Altrx 10d +4mm Od54 Mm Id36 Mm Hip - [id number] Implanted:Qty: 1 on 12/09/2022 by Collin Mon MD at [facility] Left: Hip [employer] DEPUY 10/16/2026 [id number] / / [id number] documented as of this encounter Visit Diagnoses Diagnosis Status post total hip replacement, left- Primary Muscle weakness Muscle weakness (generalized) documented in this encounter Advance Directives Latest [...] the patient have Health Care Power of Correction Lieutenant? No Full Code 03/12/2022 1:21 AM 03/18/2022 [...] the patient have Health Care Power of Correction Lieutenant? No Care Teams Traffic Signal Technician Relationship Specialty Start Date End Date Rajendra Sanchez MD [address] [place] [address] PCP - General Internal Medicine 04/23/18 documented as of this encounter
--- OUTSIDE RECORDS SUMMARY | 2023-05-19 03:23 | External Medical Summary | Summary of Care ---
Author Name Unknown Organization [facility] Address [address] [place] [address] Phone [phone] Care Team Providers Care Assistant To The Ceo Name Role Phone Rajendra Sanchez MD Primary [...] of left hip Rajendra Sanchez MD [address] [place] [address] [address] [address] Referral ID Status Reason Start Date Expiration Date Visits Requested Visits Authorized [id number] Authorized Specialty Services Required 3 02/15/2023 28 28 Encounter Details Date Type Department Care Team (Late st Contact Info) Description 12/26/2022 1:30 PM EST Rehab Services Physical Therapy, [facility] [address] [place] [address] Elda Espinosa, PIANO PROFESSOR [address] [place] [address] Muscle weakness*; Limited joint range of motion (ROM); Status post total hip replacement, left Allergies No known active allergiesdocumented as of this encounter (statuses as of 12/26/2022) Medications Medication Sig Dispensed Refills Start Date [...] as of this encounter (statuses as of 12/26/2022) Active Problems Problem Noted Date Diagnosed Date Primary osteoarthritis of left hip 10/10/2022 Overview: Added automatically from request for surgery [id number] Generalized pain 10/10/2022 Overview: Added automatically from request for surgery [id number] Encounter for therapeutic drug monitoring 2022 Overview: Added automatically from request for surgery [id number] Other specified pre-operative examination 2022 Overview: Added automatically from request for surgery [id number] Dislocation of hip prosthesis 10/10/2022 Anemia 06/09/2021 [...] as of this encounter (statuses as of 12/26/2022) Resolved Problems Problem Noted Date Diagnosed Date Resolved Date SBO (small bowel obstruction) 03/12/2022 03/18/2022 High anion gap metabolic acidosis 03/12/2022 03/18/2022 SANDRA (acute kidney injury) 03/12/2022 Shock 03/12/2022 03/18/2022 documented as of this encounter (statuses as of 12/26/2022) Immunizations Name Administration Dates Next Due SEASONAL [...] or making decisions? (5 years old or older No 05/28/2022 documented as of this encounter Progress Notes * Elda Espinosa, PIANO PROFESSOR - 12/26/2022 1:34 PM EST Outpatient Physical Therapy Daily Progress Note Physical Therapy, [place] [address] Patient Name: Remy Hillman Date of : 1960 Age: [age] year old Date: 12/26/2022 Onset Date: 12/09/2022 Start of Care: 12/12/2022 Plan of Care Expiration Date: 02/13/2023 Visit Number: 5 Precertification dates/visits: 28 Referring Physician: Collin Mon MD Primary Care Physician: Rajendra Sanchez MD Encounter Diagnosis: Left total hip replacement Orders: Postop evaluate and treat Precautions: Anterior approach. Subjective: Pt reported that he will be returning to work 3x/week starting Thursday. Pt reported Objective: Pt completed one on one TE x 45 minutes to increase strength and mobility in the L LE following THR. The following exercises were performed: Active assistive stretching by the therapist into hip flexion-10 times Ankle pumps-30 times Long arc quads-30 times Seated toe raises: 3# 30x Quad set: 30x Glute isometrics-30x Short arc quads:1# 30x Supine hip abduction-20 times with 1 lb weight and 10 times no weight home Mini squats-20X Standing leg curl-2x10 Straight leg raise-2x10 independently Standing mymgobz-fywblupik-70u Standing hip xnwkyluse-gksxbjexq-37q Assessment: Pt is a 62 y.o. male who underwent a L THR on 12/09/2022. Pt got kulwant out and got a good report from . Pt is to continue therapy and continue working on strength. Pt was a little sore today after walking a lot and doing inclines yesterday. Pt had a little more difficulty performingexercises requiring more frequent rest. Pt is returning to work starting Thursday 3x/week. Pt had most difficulty with SLR and the more pt did the better pt felt. Pt Goals ongoing. Plan: Continue physical therapy 2x/week as indicated by supervising PT to progress ROM and strengthfollowing Anterior L THR. Show pt some stretching exercises next visit for LE. UNTIMED SERVICES: 0 MINUTES TIMED SERVICES: 45 MINUTES TOTAL TIMES: 45 MINUTES Elda Espinosa PTA 12/26/2022 1:31-2:16 PM documented in this encounter Plan of Treatment Upcoming Encounters Date Type Department Care Team (Late st Contact Info) Description 12/31/2022 10:30 AM EST Rehab Services Physical Therapy, [address] [address] Elda sEpinosa PTA [address] [place] [address] 01/05/2023 10:30 AM EST Rehab Services Physical Therapy, [address] [address] Criss Lewis, PT [address] [place] [address] 01/07/2023 10:30 AM EST Rehab Services Physical Therapy, [facility] [address] [place] [address] Elda Espinosa, PIANO PROFESSOR [address] [place] [address] 01/12/2023 10:30 AM EST Rehab Services Physical Therapy, [facility] [address] [place] [address] Elda Espinosa, PIANO PROFESSOR [address] [place] [address] 01/14/2023 10:30 AM EST Rehab Services Physical Therapy, [place] [address] [place] [address] Criss Lewis, PT [address] [place] [address] 01/22/2023 3:50 PM EST Office Visit Orthopaedics [facility] [address] [place] [address] [place] [address] Collin Mon MD [address] [place] [address] Health Maintenance Due Date Last Done Comments DISCUSS TOBACCO CESSATION (REFER TO SMARTSET #4186) 1960 COVID-19 Vaccine (#1) 1960 Pneumococcal Vaccine: Pediatrics (0 to 5 Years) and At-Risk Patients (6 to 64 Years) (1 - PCV) 1965 Depression Screening 1971 Diabetic Eye Exam 1977 Diabetic Foot Exam 1977 Hepatitis C Screening 1977 Cologuard 2004 Colonoscopy 2004 Colorectal Cancer Screening 2004 Fecal Occult Blood Test 2004 Sigmoidoscopy 2004 Zoster Vaccines (1 of 2) 2009 DTaP,Tdap,and [...] this encounter Medical Devices Implanted Type Area Biomass Boiler Operator Device Identifier Shelf Expiration Date Model / Serial / Lot Liner Acetabular [place] Altrx 10d +4mm Od54 Mm Id36 Mm Hip - [id number] Implanted:Qty: 1 on 12/09/2022 by Collin Mon MD at OR [facility] Left: Hip ECHJ[employer]J DEPUY 10/16/2026 [id number] / / [id number] documented as of this encounter Visit Diagnoses [...] the patient have Health Care Power of Operational Intelligence Analyst? No Full Code 03/12/2022 1:21 AM 03/18/2022 [...] the patient have Health Care Power of Operational Intelligence Analyst? No Care Teams Assistant To The Ceo Relationship Specialty Start Date End Date Rajendra Sanchez MD [address] [place] [address] PCP - General Internal Medicine 04/23/18 documented as of this encounter
--- OUTSIDE RECORDS SUMMARY | 2023-05-19 03:23 | External Medical Summary | Summary of Care ---
Author Name Unknown Organization [facility] Address [address] [place] [address] Care Team Providers Care Sugar Grinder Name Role Phone Rajendra Sanchez MD Primary Care Provider Reason for Visit * Reason Onset Date Comments Advice 01/06/2023 Encounter Details Date Type Department Care Team (Late st Contact Info) Description 01/06/20[address] [facility] [address] [place] [address] [place] [phone] Collin Mon MD [address] [place] [address] Advice Allergies No known active allergiesdocumented as of this encounter (statuses as of 01/07/2023) Medications Medication Sig Dispensed Refills Start Date [...] as of this encounter (statuses as of 01/07/2023) Active Problems Problem Noted Date Diagnosed Date Primary osteoarthritis of left hip 10/10/2022 Overview: Added automatically from request for surgery [id number] Generalized pain 10/10/2022 Overview: Added automatically from request for surgery [id number] Encounter for therapeutic drug monitoring 2022 Overview: Added automatically from request for surgery [id number] Other specified pre-operative examination 2022 Overview: Added automatically from request for surgery [id number] Dislocation of hip prosthesis 10/10/2022 Anemia 06/09/2021 [...] as of this encounter (statuses as of 01/07/2023) Resolved Problems Problem Noted Date Diagnosed Date Resolved Date SBO (small bowel obstruction) 03/12/2022 03/18/2022 High anion gap metabolic acidosis 03/12/2022 03/18/2022 SANDRA (acute kidney injury) 03/12/2022 Shock 03/12/2022 03/18/2022 documented as of this encounter (statuses as of 01/07/2023) Immunizations Name Administration Dates Next Due SEASONAL [...] encounter Miscellaneous Notes * Addendum Note - Mima Shipley LPN [...] 10:30 AM EST Rehab Services Physical Therapy, [facility] [address] [place], [place] [id number] Elda Espinosa, LMFT [address] [place], [place] [phone] 01/14/2023 10:30 AM EST Rehab Services Physical Therapy, [facility] [address] [place], [place] [id number] Criss Lewis, PT [address] [place] [address] 02/05/2023 2:50 PM EST Office Visit Orthopaedics [facility] [address] [place] [address] [place] [phone] Collin Mon MD [address] [place] [address] Health Maintenance Due Date Last Done Comments DISCUSS TOBACCO CESSATION (REFER TO SMARTSET #5637) 1960 COVID-19 Vaccine (#1) 1960 Depression Screening [...] this encounter Medical Devices Implanted Type Area Metal Extrusion Supervisor Device Identifier Shelf Expiration Date Model / Serial / Lot Liner Acetabular [place] Altrx 10d +4mm Od54 Mm Id36 Mm Hip - [id number] Implanted:Qty: 1 on 12/09/2022 by Collin Mon MD at OR [facility] Left: Hip ECHJ&J DEPUY 10/16/2026 [id number] / / [id number] documented as of this encounter Visit Diagnoses [...] the patient have Health Care Power of Administrator Health Care Facility? No Full Code 03/12/2022 1:21 AM 03/18/2022 [...] the patient have Health Care Power of Administrator Health Care Facility? No Care Teams Sugar Grinder Relationship Specialty Start Date End Date Rajendra Sanchez MD [address] [facility] [place] [address] PCP - General Internal Medicine 04/23/18 documented as of this encounter
--- OUTSIDE RECORDS SUMMARY | 2023-05-19 03:23 | External Medical Summary | Summary of Care ---
Author Name Unknown Organization [facility] Address [address] [place] [address] Care Team Providers Care Dry Finisher Name Role Phone Rajendra Sanchez MD Primary Care Provider Reason for Visit * Reason Onset Date Comments Advice 01/06/2023 Encounter Details Date Type Department Care Team (Late st Contact Info) Description 01/06/2023 Telephone Orth[address]edics [facility] [address] [place] [address] [place] [phone] Collin Mon MD [address] [place] [address] Advice Allergies No known active allergiesdocumented as [...] Overview: Added automatically from request for surgery [id number] Generalized pain 10/10/2022 Overview: Added automatically from request for surgery [id number] Encounter for therapeutic drug monitoring 2022 Overview: Added automatically from request for surgery [id number] Other specified pre-operative examination 2022 Overview: Added automatically from request for surgery [id number] Dislocation of hip prosthesis 10/10/2022 Anemia 06/09/2021 [...] 10:30 AM EST Rehab Services Physical Therapy, [facility] [address] [place], [place] [phone] Elda Espinosa, LINE OPERATOR [address] [place], [place] [phone] 01/14/2023 10:30 AM EST Rehab Services Physical Therapy, [facility] [address] [place], [place] [phone] Criss Lewis, PT [address] [place] [address] 02/05/2023 2:50 PM EST Office Visit Orthopaedics [facility] [address] [place] [address] [place] [phone] Collin Mon MD [address] [place] [address] Health Maintenance Due Date Last Done Comments DISCUSS TOBACCO CESSATION (REFER TO SMARTSET #6602) 1960 COVID-19 Vaccine (#1) 1960 Depression Screening [...] this encounter Medical Devices Implanted Type Area Motion Picture Set Up Worker Device Identifier Shelf Expiration Date Model / Serial / Lot Liner Acetabular [place] Altrx 10d +4mm Od54 Mm Id36 Mm Hip - [id number] Implanted:Qty: 1 on 12/09/2022 by Collin Mon MD at OR [facility] Left: Hip ECHJ&J DEPUY 10/16/2026 [id number] / / [id number] documented as of this encounter Visit Diagnoses [...] the patient have Health Care Power of Oracle Agile Plm Consultant? No Full Code 03/12/2022 1:21 AM 03/18/2022 [...] the patient have Health Care Power of [employer] Ag[employer] Pl[employer] Consultant? No Care Teams Dry Finisher Relationship Specialty Start Date End Date Rajendra Sanchez MD [address] [facility] [place] [address] PCP - General Internal Medicine 04/23/18 documented as of this encounter
--- OUTSIDE RECORDS SUMMARY | 2023-05-19 03:23 | External Medical Summary | Summary of Care ---
Author Name Unknown Organization [facility] Address [address] [place] [address] Phone [phone] Care Team Providers Care Records Management Associate Name Role Phone Rajendra Sanchez MD Primary [...] of left hip Rajendra Sanchez MD [address] [place] [address] [address] Referral ID Status Reason Start Date Expiration Date Visits Requested Visits Authorized [id number] Authorized Specialty Services Required 3 02/15/2023 28 28 Encounter Details Date Type Department Care Team (Late st Contact Info) Description 12/31/2022 10:30 AM EST Rehab Services Physical Therapy, [facility] [address] [place] [address] Elda Espinosa CAMERA TECHNICIAN [address] [place] [address] Muscle weakness*; Limited joint range of motion (ROM); Status post total hip replacement, left; History of total right hip replacement Allergies No known active allergiesdocumented as of this encounter (statuses as of 01/01/2023) Medications Medication Sig Dispensed Refills Start Date [...] as of this encounter (statuses as of 01/01/2023) Active Problems Problem Noted Date Diagnosed Date Primary osteoarthritis of left hip 10/10/2022 Overview: Added automatically from request for surgery [id number] Generalized pain 10/10/2022 Overview: Added automatically from request for surgery [id number] Encounter for therapeutic drug monitoring 2022 Overview: Added automatically from request for surgery [id number] Other specified pre-operative examination 2022 Overview: Added automatically from request for surgery [id number] Dislocation of hip prosthesis 10/10/2022 Anemia 06/09/2021 [...] as of this encounter (statuses as of 01/01/2023) Resolved Problems Problem Noted Date Diagnosed Date Resolved Date SBO (small bowel obstruction) 03/12/2022 03/18/2022 High anion gap metabolic acidosis 03/12/2022 03/18/2022 SANDRA (acute kidney injury) 03/12/2022 Shock 03/12/2022 03/18/2022 documented as of this encounter (statuses as of 01/01/2023) Immunizations Name Administration Dates Next Due SEASONAL [...] this encounter Progress Notes * Elda Espinosa, CAMERA TECHNICIAN - 12/31/2022 10:35 AM EST Outpatient Physical Therapy Daily Progress Note Physical Therapy, [place] [address] Patient Name: Remy Hillman Date of : 1960 Age: [age] year old Date: 12/31/2022 Onset Date: 12/09/2022 Start of Care: 12/12/2022 Plan of Care Expiration Date: 02/13/2023 Visit Number: 6 Precertification dates/visits: 28 Referring Physician: Collin Mon MD Primary Care Physician: Rajendra Sanchez MD Encounter Diagnosis: Left total hip replacement Orders: Postop evaluate and treat Precautions: Anterior approach. Subjective: Pt reported that he returned to work and is not having any difficulties physically. Pt reported that he has been doing his seated hamstring stretch and that is helping in the mornings. Ptreported that he didn't even get fatigued at work. Reported he did it without the cane. Objective: Pt completed one on one TE x 60 minutes to increase strength and mobility in the L LE following THR. The following exercises were performed: Active assistive stretching by the therapist into hip flexion-10 times Ankle pumps-30 times-home only Long arc quads-5# 30x Seated toe raises: 7.5# 30x Quad set: 30x Glute isometrics-30x Short arc quads:5# 30x Supine hip abduction-30x 2# home Mini squats-20x Standing leg curl-2x10 Straight leg raise-2x10 independently Standing wpyfnim-adcqraidq-85c Standing hip jvdyaqpoh-dlmimehvz-67j Standing Hamstrings Stretch: 3x20 seconds bilaterally Standing Calf Stretch: 3x20 seconds bilaterally Assessment: Pt is a 62 y.o. male who underwent a L THR on 12/09/2022. Pt returned to work 3x/week and is not having any physical difficulties. Pt did not fatigue although pt continues to feel stiff in the mornings. Pt was shown a standing hamstring and calf stretch also reviewing seated hamstring and calf stretching. Pt also is progress strengthening exercises and increase SAQ and LAQ to 5#, seated heel raises to 7.5#, and standing hip abduction. Pt has most difficult with hip flexion due to limited strength. Pt would benefit from continued therapy to address goals. Short Term Goals: 4 weeks Initiate Home Exercise Program Reduce pain to less than 4/10 consistently Improve ROM to WFL Improve strength by grade Increase ambulation to functional community distance with appropriate assistive device Cco Goals: 6 weeks Independent with Home Exercise Program Reduce pain to less than 2/10 Improve ROM to WNL for a right total hip replacement Improve strength to 5/5 in quads, hamstrings and 4/5 in hip and 3/5 in plantar flexors Independent ambulation on level surfaces without assistive device Negotiate steps with reciprocal pattern and 1 handrail Return to work without restrictions Improve score on lower extremity functional scale Plan: Continue physical therapy 2x/week as indicated by supervising PT to progress ROM and strengthfollowing Anterior L THR. UNTIMED SERVICES: 0 MINUTES TIMED SERVICES: 60 MINUTES TOTAL TIMES: 60 MINUTES Elda Espinosa PTA 12/31/2022 10:32-11:32 AM documented in this encounter Plan of Treatment Upcoming Encounters Date Type Department Care Team (Late st Contact Info) Description 01/05/2023 10:30 AM EST Rehab Services Physical Therapy, [address] [address] Criss Lewis, PT [address] [place] [address] 01/07/2023 10:30 AM EST Rehab Services Physical Therapy, [address] [address] Elda Espinosa, CAMERA TECHNICIAN [address] [place] [address] 01/12/2023 10:30 AM EST Rehab Services Physical Therapy, [address] [address] Elda Espinosa, CAMERA TECHNICIAN [address] [place] [address] 01/14/2023 10:30 AM EST Rehab Services Physical Therapy, [address] [address] Criss Lewis, PT [address] [place] [address] 01/22/2023 3:50 PM EST Office Visit Orthopaedics [facility] [address] [place] [address] [place] [phone] Collin Mon MD [address] [place] [address] Health Maintenance Due Date Last Done Comments [...] this encounter Medical Devices Implanted Type Area Detacher Device Identifier Shelf Expiration Date Model / Serial / Lot Liner Acetabular [place] Altrx 10d +4mm Od54 Mm Id36 Mm Hip - [id number] Implanted:Qty: 1 on 12/09/2022 by Collin Mon MD at OR [facility] Left: Hip ECHJ&J DEPUY 10/16/2026 [id number] / / [id number] documented as of this encounter Visit Diagnoses Diagnosis Muscle weakness- Primary Muscle weakness (generalized) Limited joint range of motion (ROM) Status post total hip replacement, 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 No Full Code 03/12/2022 1:21 AM 03/18/2022 [...] the patient have Health Care Power of Chief Of [employer]? No Care Teams Records Management Associate Relationship Specialty Start Date End Date Rajendra Sanchez MD [address] [facility] [place] [address] PCP - General Internal Medicine 04/23/18 documented as of this encounter
--- OUTSIDE RECORDS SUMMARY | 2023-05-19 03:24 | External Medical Summary | Summary of Care ---
Author Name Unknown Organization [facility] Address [address] [place] [address] Phone [phone] Care Team Providers Care Pattern Illustrator Name Role Phone Rajendra Sanchez MD Primary Care Provider Reason for Visit * Reason Comments Post-Op * Evaluate & Treat - Unlimited Visits (Within 10 days (routine)) - Authorized Specialty Diagnoses / Procedures Referred By Contac t Referred To Contact Physical Medicine and Rehab / Physical Medicine And Rehab Diagnoses Primary osteoarthritis of left hip Rajendra Sanchez MD [address] [place] [address] [place] [address] Referral ID Status Reason Start Date Expiration Date Visits Requested Visits Authorized [id number] Authorized Specialty Services Required 02/15/2023 28 28 Encounter Details Date Type Department Care Team (Late st Contact Info) Description 12/12/2022 10:30 AM EDT Rehab Services Physical Therapy, [facility] [address] [place] [address] Criss Lewis, PT [address] [place] [address] Status post total hip replacement, left*; Muscle weakness; Limited joint range of motion (ROM) Allergies No known active allergiesdocumented as of this encounter (statuses as of 12/15/2022) Medications Medication Sig Dispensed Refills Start Date [...] 8 tablets/day 30 Tablet 0 12/10/2022 Active Celecoxib 200 MG Oral Capsule (CeleBREX) Take 1 Capsule by mouth daily with dinner for 7 days. 7 Capsule 0 12/10/2022 12/17/2022 Active documented as of this encounter (statuses as of 12/15/2022) Active Problems Problem Noted Date Diagnosed Date Primary osteoarthritis of left hip 10/10/2022 Overview: Added automatically from request for surgery [id number] Generalized pain 10/10/2022 Overview: Added automatically from request for surgery [id number] Encounter for therapeutic drug monitoring 2022 Overview: Added automatically from request for surgery [id number] Other specified pre-operative examination 2022 Overview: Added automatically from request for surgery [id number] Dislocation of hip prosthesis 10/10/2022 Anemia 06/09/2021 [...] as of this encounter (statuses as of 12/15/2022) Resolved Problems Problem Noted Date Diagnosed Date Resolved Date SBO (small bowel obstruction) 03/12/2022 03/18/2022 High anion gap metabolic acidosis 03/12/2022 03/18/2022 SANDRA (acute kidney injury) 03/12/2022 Shock 03/12/2022 03/18/2022 documented as of this encounter (statuses as of 12/15/2022) Immunizations Name Administration Dates Next Due SEASONAL [...] Progress Notes * Criss Lewis, PT - 12/12/2022 10:51 AM EDT OUTPATIENT PHYSICAL THERAPY Evaluation Physical Therapy, [place] [address] In accordance with accepted medical standards, I hereby certify that the above named patient requires rehabilitation services for the problem(s) identified above. As such, I request that the centers professional staff evaluate and assess the patients need for said services on a regularbasis and provide a detailed plan of care for my approval (to be reviewed every 90 days). Providers Signature: Date: Time: PLEASE SIGN AND RETURN VIA FAX Patient Name: Remy Hillman Date of : 1960 Age: [age] year old Insurance: Payor: [employer] OOS Plan: [facility] OOS Product Type: *No Product type* Payor: [facility] [employer] OOS Plan: [place] Product Type: *No Product type* Date: 12/12/2022 Patient Verified by: Name and Date of Onset Date: 12/09/2022 Start of Care: 12/12/2022 Plan of Care Expiration Date: 02/13/2023 Visit Number: 1 Precertification dates/visits: 28 Authorization number: 1 Referring Physician: Collin Mon MD Primary Care Physician: Rajendra Sanchez MD Encounter Diagnosis: Left total hip replacement Orders: Postop evaluate and treat Precautions: Anterior approach. HPI/Onset of Complaint: The patient is a 62-year-old male who underwent a left total hip replacement on December 09, 2022. Reports when he was in recovery it looked like his hip dislocated so they took him back into the OR and did another surgery to fix the problem. Reports he has been doing exercises at home that they showed him in the hospital. Reports his right total hip that he had done last November is doing well. Reports he has pain in both quads every day. Have you had physical therapy or other treatment for the same condition before? no Results of treatment? Were images taken? yes x-rays Test results: Severe DJD of left hip requiring a total hip replacement preop Past Medical History: Past Medical History: Diagnosis Date Anemia iron deficiency Bipolar disorder (HCC) Diabetes (HCC) DM neuropathy, type II diabetes mellitus (HCC) GERD (gastroesophageal reflux disease) Hyperlipidemia Hypertension Osteoarthritis Sleep apnea Past Surgical History: Past Surgical History: Procedure Laterality Date FOOT/TOE SURGERY NEC Right SD ARTHRP ACETBLR/PROX FEM PROSTC AGRFT/ALGRFT TOTAL HIP REPLACEMENT & PROSTHESIS Right 2021 TOTAL HIP REPLACEMENT & PROSTHESIS Left 12/09/2022 ARTHROPLASTY TOTAL HIP performed by Collin Mon MD at OR [facility] Current Med list: Current Outpatient Medications Medication Sig Dispense Refill Nortriptyline HCl 75 MG Oral Capsule Take 1 Capsule by mouth at bedtime. Trulicity 0.75 MG/0.5ML Subcutaneous Solution Pen-injector (Dulaglutide) Inject 0.75 mg under the skin once a week. lamoTRIgine 100 MG Oral Tablet Take 1 Tablet by mouth in the morning and 1 Tablet before bedtime. Pantoprazole Sodium 20 MG Oral Tablet Delayed Release Take 1 Tablet by mouth in the morning. Gabapentin 100 MG Oral Capsule (Neurontin) Take 2 Capsules by mouth at bedtime. Takes 100 mg AM [id number] mg PM QUEtiapine Fumarate 50 MG Oral Tablet Take 1 Tablet by mouth at bedtime. Aspirin 81 MG Oral Tablet Chewable Take 1 Tablet by mouth in the morning. Metoprolol Tartrate 50 MG Oral Tablet (Lopressor) Take 1 Tablet by mouth in the morning and 1 Tablet before bedtime. Gabapentin 100 MG Oral Capsule (Neurontin) Take 1 Capsule by mouth in the morning. Takes 100 mg AM and 200 mg PM. Glimepiride 1 MG Oral Tablet (Amaryl) Take 1 Tablet by mouth daily before breakfast. Vitamin D3 25 MCG (1000 UT) Oral Tablet Take 5 Tablets by mouth in the morning. metFORMIN HCl 1000 MG Oral Tablet (Glucophage) Benazepril HCl 20 MG Oral Tablet (Lotensin) Take 1 Tablet by mouth in the morning. 1/2 tab daily. Melatonin 3 MG Oral Capsule Take 1 Capsule by mouth at bedtime. Celecoxib 200 MG Oral Capsule (CeleBREX) Take 1 Capsule by mouth once. TAKE NIGHT BEFORE SURGERY Apixaban 2.5 MG Oral Tablet (Eliquis) Take 1 Tablet by mouth in the morning and 1 Tablet before bedtime. Start taking AFTER YOUR SURGERY. Take 1 tablet two times per day for 30 days.. 60 Tablet 0 Acetaminophen 500 MG Oral Capsule Take 2 Capsules by mouth in the morning and 2 Capsules at noon and 2 Capsules before bedtime. traMADol HCl 50 MG Oral Tablet (Ultram) Take 1 Tablet by mouth every 6 hours as needed for Pain, Moderate (May take an additional tablet every 6 hours as needed for severe pain). moderate pain 4-7/10or severe pain 8-10/10. MMD: 8 tablets/day 30 Tablet 0 Celecoxib 200 MG Oral Capsule (CeleBREX) Take 1 Capsule by mouth daily with dinner for 7 days. 7 Capsule 0 No current facility-administered medications for this visit. Allergies: Review of patient's allergies indicates: No Known Allergies ROS (Patient Reported) General health good? no Fair repeated bouts of sepsis and was hospitalized half year ago Diabetes? yes . Has peripheral neuropathy with significant numbness in both feet Heart condition? no Fainting? no Fall Risk: no High blood pressure? yes Metal implants? yes Right hip and right toe and left hip Possible ? no Any diagnosis of cancer? no Pacemaker? 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 Drug use: Never Sexual activity: Not on file Other Topics Concern Not on file Social History Narrative Not on file Social Determinants of Health Financial Resource Strain: Not on file Food Insecurity: Not on file Transportation Needs: Not on file Physical Activity: Not on file Stress: Not on file Social Connections: Not on file Intimate Partner Violence: Not on file Housing Stability: Not on file Previous Level of Function: 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 is independent in all activities Pt.'s/Family Expectations: Return of full function of left hip SUBJECTIVE: Reports overall feels like he is doing well consider and he had 2 surgeries in less than 12 hours Chief Complaint Patient presents with Post-Op Pain Evaluation Is the pt having any pain related to today's visit?: Yes Pain Scale Type: [facility] Adult Scale 0-10 On a scale of 1-10 with 10 being the highest, how is the pt's pain now?: 4 Location of pain:: lefrt groin and low back Duration of pain:: intermittent walking and doing exercises Alleviating Factors: Rest and ice Aggravating Factors: Moving the wrong way Fall Evaluation Does pt have a history of falls in the last 6 months?: No Will any of the medications or procedures this patient may encounter during their visit put them atincreased risk of a fall?: No Does this pt demonstrate any physical impairment or altered mental status that places them at increased risk of fall?: No Does patient have improper fitting or poor footwear?: No Was the patient or family given the "Preventing Falls at Home" brochure?: No Fall precautions in place:: Yes OBJECTIVE: Sensation: Lower Extremity: Left is decreased as follows: Dorsum of foot and Right is decreased as follows: Dorsum of foot Edema: Patient with general swelling around his left hip and down into his leg Palpation: Patient reports tenderness around his incision Posture: Good Gait: Patient ambulating weight-bearing as tolerated left lower extremity with rolling walker with no toe off on either side and shuffles both feet. He also has a Trendelenburg gait . The no toe off and the shuffling is due to his peripheral neuropathy. Balance: Good static. Not tested dynamic Inspection: Incision covered with a waterproof bandage RANGE OF MOTION/STRENGTH: Left hip active assistive flexion to approximately 80 in the supine position. Extension to neutral. Left hip abduction is within functional limits. Left knee, and ankle range of motion are within functional limits but is stiff in left knee extension. Patient's left lower extremity muscle strengthis as follows:Flexion-3-/5. Abduction-2+/3-/5. Extension-3-/5. Left quad strength is 4/5. Left hamstring is 4-/5. Left plantar flexion-2/5. Right plantar flexion is also 2/5. Bilateral dorsiflexion is 5/5. Patient has low tone weak core/abdominal muscles. Special Tests: LE Functional Scale FUNCTIONAL OUTCOME MEASURES: Lower Extremity Functional Scale (LEFS) - score- score 29/80 equals 63.75% impairment ASSESSMENT: The patient is 3 days postop left total hip replacement. Patient presents with decreased range of motion and muscle strength and increased pain in left hip/left groin secondary to a left total hip replacement. He also has significant weakness in his bilateral plantar flexors due to peripheral neuropathy. Patient also has gait instability due to a left hip replacement and bilateral peripheral neuropathy in both feet. The patient would benefit from skilled Physical Therapy services toaddress current problems and regain prior level of function. Current Problems: Pain ROM deficits Strength deficits Gait impairment Functional Status impairment Short Term Goals: 4 weeks Initiate Home Exercise Program Reduce pain to less than 4/10 consistently Improve ROM to WFL Improve strength by grade Increase ambulation to functional community distance with appropriate assistive device Jail Goals: 6 weeks Independent with Home Exercise [...] Improve score on lower extremity functional scale Rehabilitation Potential: good Level of Complexity: Patient was cooperative and motivated during therapy session. There were no comorbidities/personal factors identified that would impact the plan of care. An exam of the body systems identified limitations in 1-2 elements. This patient presents with a stable, uncomplicated charac teristics. These limitations will be addressed to meet the goals set for this patient. PLAN: Physical therapy Frequency: 2 times per week Duration 4-6 weeks TREATMENT (may include any of the following as appropriate): Therapeutic Exercise range of motion and strengthening exercises to left lower extremity and core Gait Training Heat/Cold Patient/Family in Agreement with Plan of Care and Goals ~~~~~~~~~~~~~~~~~~~~~~~~~~~~~~~~~~~~~~~~~~~~~~~~~~~~~~~~~~~~~~ ~~~~~~~~~~~~~~~~~~~~~~~~~~~~~~~~~~~~~~~~~~~~~~~~~~~~~~~~~~~~~~ UNTIMED SERVICES: 25 minutes Evaluation TIMED SERVICES: 20 minutes Therapeutic Exercises: Ankle pumps-20 times Long arc quads-20 times Quad set-20 times Glute isometrics-20 times Short arc quads- 20 times Supine hip abduction-20 times Ankle plantar flexion with blue Hnvgv-Nghv-53 times Total timed services: 20 ~~~~~~~~~~~~~~~~~~~~~~~~~~~~~~~~~~~~~~~~~~~~~~~~~~~~~~~~~~~~~~ ~~~~~~~~~~~~~~~~~~~~~~~~~~~~~~~~~~~~~~~~~~~~~~~~~~~~~~~~~~~~~~ PATIENT EDUCATION AND HOME EXERCISE PROGRAM: Person(s) Taught: Patient Topic: Home Exercise Program ankle pumps, quad sets, glute isometrics, long arc quads, short arc quads, supine hip abduction, ankle plantar flexion with blue Thera-Band, Discussed present condition, treatment rationale and progression of treatment, and Other: Encouraged to use ice over incision Method: Verbal, Demonstration, and Written Outcome: Patient verbalizes understanding and Patient demonstrates understanding Criss Lewis, PT 12/12/2022 Physical Therapy, [address] [address] documented in this encounter Plan of Treatment Upcoming Encounters Date Type Department Care Team (Late st Contact Info) Description 12/16/2022 9:45 AM EDT Rehab Services Physical Therapy[address] [address] Criss Lewis, PT [address] [place] [address] 12/18/2022 10:30 AM EDT Rehab Services Physical [facility], [address] [address] Criss Lewis, PT [address] [place] [address] 12/22/2022 10:30 AM EST Rehab Services Physical [address] [address] Elda Espinosa, FLOTATION OPERATOR [address] [place] [address] 12/23/2022 2:30 PM EST Office Visit Orthopaedics [facility] [address] E[address] [facility] [address] Antonio [address] [place] [phone] Tu Haque PA-C [address] [facility] [place] [address] [place] [address] 12/24/2022 9:45 AM EST Rehab Services Physical Therapy, [address] [address] Elda Espinosa, FLOTATION OPERATOR [address] [place] [address] 12/26/2022 9:45 AM EST Rehab Services Physical Therapy, [address] [address] Elda Espinosa, FLOTATION OPERATOR [address] [place] [address] 12/29/2022 10:30 AM EST Rehab Services Physical Therapy, [address] [address] Kyara Mora, FLOTATION OPERATOR [address] [place] [address] 12/31/2022 10:30 AM EST Rehab Services Physical Therapy, [address] [address] Elda Espinosa, FLOTATION OPERATOR [address] [place] [address] 01/05/2023 10:30 AM EST Rehab Services Physical Therapy, [address] [address] Criss Lewis, PT [address] [place] [address] 01/07/2023 10:30 AM EST Rehab Services Physical Therapy, [address] [address] Elda Espinosa, FLOTATION OPERATOR [address] [place] [address] 01/12/2023 10:30 AM EST Rehab Services Physical Therapy, [address] [address] Elda Espinosa, FLOTATION OPERATOR [address] [place] [address] 01/14/2023 10:30 AM EST Rehab Services Physical Therapy, [facility] [address] [place] [address] Debbie Crissbetsy De La Cruzele, PT [address] [place], [place] [phone] Health Maintenance Due Date Last Done Comments DISCUSS TOBACCO CESSATION (REFER TO SMARTSET #2148) 1960 COVID-19 Vaccine (#1) 1960 Pneumococcal Vaccine: [...] this encounter Medical Devices Implanted Type Area Assistant Professor Sculpture Device Identifier Shelf Expiration Date Model / Serial / Lot Liner Acetabular Bethany Altrx 10d +4mm Od54 Mm Id36 Mm Hip - [id number] Implanted:Qty: 1 on 12/09/2022 by Collin Mon MD at OR [facility] Left: Hip [employer] DEPUY 10/16/2026 [id number] / / [id number] documented as of this encounter Visit Diagnoses Diagnosis Status post total hip replacement, left- Primary Muscle weakness Muscle weakness (generalized) Limited joint range of motion (ROM) documented in this encounter Advance Directives Latest [...] the patient have Health Care Power of Senior Software Project Manager? No Full Code 03/12/2022 1:21 AM [...] the patient have Health Care Power of Senior Software Project Manager? No Care Teams Pattern Illustrator Relationship Specialty Start Date End Date Rajendra Sanchez MD [address] [place] [address] PCP - General Internal Medicine 04/23/18 documented as of this encounter
--- OUTSIDE RECORDS SUMMARY | 2023-05-19 03:24 | External Medical Summary | Summary of Care ---
Author Name Unknown Organization [facility] Address [address] [place] [address] Phone [phone] Care Team Providers Care Dining Room Attendant Cafeteria Name Role Phone Rajendra Sanchez MD Primary Care Provider Reason for Visit * Reason Comments Post-Op * Evaluate & Treat - Unlimited Visits (Within 10 days (routine)) - Authorized Specialty Diagnoses / Procedures Referred By Contac t Referred To Contact Physical Medicine and Rehab / Physical Medicine And Rehab Diagnoses Primary osteoarthritis of left hip Rajendra Sanchez MD [address] [place] [address] [place] [address] Referral ID Status Reason Start Date Expiration Date Visits Requested Visits Authorized [id number] Authorized Specialty Services Required 02/15/2023 28 28 Encounter Details Date Type Department Care Team (Late st Contact Info) Description 12/18/2022 10:30 AM EDT Rehab Services Physical Therapy, [facility] [address] [place] [address] Criss Lewis, PT [address] [place] [address] Muscle weakness*; Limited joint range of motion (ROM); Status post total hip replacement, left Allergies No known active allergiesdocumented as of this encounter (statuses as of 12/18/2022) Medications Medication Sig Dispensed Refills Start Date [...] 8 tablets/day 30 Tablet 0 12/10/2022 Active documented as of this encounter (statuses as of 12/18/2022) Active Problems Problem Noted Date Diagnosed Date Primary osteoarthritis of left hip 10/10/2022 Overview: Added automatically from request for surgery [id number] Generalized pain 10/10/2022 Overview: Added automatically from request for surgery [id number] Encounter for therapeutic drug monitoring 2022 Overview: Added automatically from request for surgery [id number] Other specified pre-operative examination 2022 Overview: Added automatically from request for surgery [id number] Dislocation of hip prosthesis 10/10/2022 Anemia 06/09/2021 [...] as of this encounter (statuses as of 12/18/2022) Resolved Problems Problem Noted Date Diagnosed Date Resolved Date SBO (small bowel obstruction) 03/12/2022 03/18/2022 High anion gap metabolic acidosis 03/12/2022 03/18/2022 SANDRA (acute kidney injury) 03/12/2022 Shock 03/12/2022 03/18/2022 documented as of this encounter (statuses as of 12/18/2022) Immunizations Name Administration Dates Next Due SEASONAL [...] Progress Notes * Criss Lewis, PT - 12/18/2022 10:28 AM EDT Outpatient Physical Therapy Daily Progress Note Physical Therapy, [place] [address] Patient Name: Remy Hillman Date of : 1960 Age: [age] year old Date: 12/18/2022 Onset Date: 12/09/2022 Start of Care: 12/12/2022 Plan of Care Expiration Date: 02/13/2023 Visit Number: 3 Precertification dates/visits: 28 Authorization number: 1 Referring Physician: Collin Mon MD Primary Care Physician: Rajendra Sanchez MD Encounter Diagnosis: Left total hip replacement Orders: Postop evaluate and treat Precautions: Anterior approach. Subjective: The patient reports that overall is feeling good. Reports his biggest complaint is fatigue. Reports he gets tired easy. Objective: The patient is 9 days postop left total hip replacement. He is ambulating with a straight cane. He takes short steps and no toe off. He has never had toe off Before surgery secondary to bilateral peripheral neuropathy. The patient performed 40 minutes of 1 on 1 therapeutic exercise consisting of the following exercises: Active assistive stretching by the therapist into hip flexion-10 times Ankle pumps-30 times- Long arc quads-30 times-add 1 lb weight next time Seated toe nxtfjy-[id number] weight next time Quad set-30 times Glute isometrics-30 times Short arc quads- 30 times- 1 lb weight next time Supine hip abduction-20 times with 1 lb weight and 10 times no weight Ankle plantar flexion with blue Binqh-Aexg-00 times-home Mini squats-20X Standing leg curl-2X10 Straight leg raise-10X with assist Standing [id number]-[id number]-[id number] Standing hip uaxrdpgan-hbljecoth-69 times Assessment: Patient tolerated the exercise program well and said he felt good when he was leaving. No increase in pain. Goals ongoing. Plan: Continue physical therapy 2 times a week to progress range of motion and strength and gait following a left total hip replacement. UNTIMED SERVICES: 0 MINUTES TIMED SERVICES: 40 MINUTES TOTAL TIMES: 40 MINUTES Criss Lewis, PT 12/18/2022 10:28 AM documented in this encounter Plan of Treatment Upcoming Encounters Date Type Department Care Team (Late st Contact Info) Description 12/22/2022 10:30 AM EST Rehab Services Physical Therapy, [address] [address] Elda Espinosa, [address] [address] 12/23/2022 2:30 PM EST Office Visit Orthopaedics [facility] E[facility] [address] [facility] [place] [address] [place] [address] HECTOR [phone] Tu Haque PA-C [address] [address] 12/24/2022 9:45 AM EST Rehab Services Physical Therapy, [address] [address] Elda Espinosa, BROKE HANDLER [address] [place] [address] 12/26/2022 9:45 AM EST Rehab Services Physical Therapy, [address] [address] Elda Espinosa, BROKE HANDLER [address] [place] [address] 12/29/2022 10:30 AM EST Rehab Services Physical Therapy, [address] [address] Kyara Mora, BROKE HANDLER [address] [place] [address] 12/31/2022 10:30 AM EST Rehab Services Physical Therapy, [address] [address] Elda Espinosa, BROKE HANDLER [address] [place] [address] 01/05/2023 10:30 AM EST Rehab Services Physical Therapy, [address] [address] Criss Lewis, PT [address] [place] [address] 01/07/2023 10:30 AM EST Rehab Services Physical Therapy, [address] [address] Elda Espinosa, BROKE HANDLER [address] [place] [address] 01/12/2023 10:30 AM EST Rehab Services Physical Therapy, [address] [address] Elda Espinosa, BROKE HANDLER [address] [place] [address] 01/14/2023 10:30 AM EST Rehab Services Physical Therapy, [facility] [address] [place] [address] Criss Lewis, PT [address] [place], [place] [phone] Health Maintenance Due Date Last Done Comments DISCUSS TOBACCO CESSATION (REFER TO SMARTSET #7240) 1960 COVID-19 Vaccine (#1) 1960 Pneumococcal Vaccine: [...] this encounter Medical Devices Implanted Type Area Tenoner Operator Device Identifier Shelf Expiration Date Model / Serial / Lot Liner Acetabular Casar Altrx 10d +4mm Od54 Mm Id36 Mm Hip - [id number] Implanted:Qty: 1 on 12/09/2022 by Collin Mon MD at OR [facility] Left: Hip [employer] DEPUY 10/16/2026 [id number] / / [id number] documented as of this encounter Visit Diagnoses [...] the patient have Health Care Power of Natural Sciences Department Chair? No Full Code 03/12/2022 1:21 AM 03/18/2022 [...] the patient have Health Care Power of Natural Sciences Department Chair? No Care Teams Dining Room Attendant Cafeteria Relationship Specialty Start Date End Date Rajendra Sanchez MD [address] [place] [address] PCP - General Internal Medicine 04/23/18 documented as of this encounter
--- OUTSIDE RECORDS SUMMARY | 2023-05-19 03:24 | External Medical Summary | Summary of Care ---
Author Name Unknown Organization [facility] Address [address] [place] [address] Care Team Providers Care Disabilities Caregiver Name Role Phone Rajendra Sanchez MD Primary Care Provider Reason for Visit * Reason Comments Post-Op L THR Encounter Details Date Type Department Care Team (Latest Contact Info) Description 12/23/2022 2:30 PM EST Office Visit Orthopaedics [facility] [address] [facility] [address] [place] [address] [place] [phone] Tu Haque PA-C [address] [facility] [address] [place] [address] [place] [address] Aftercare following surgery of the musculoskeletal system* Allergies No known active allergiesdocumented as of this encounter (statuses as of 12/23/2022) Medications Medication Sig Dispensed Refills Start Date [...] as of this encounter (statuses as of 12/23/2022) Active Problems Problem Noted Date Diagnosed Date Primary osteoarthritis of left hip 10/10/2022 Overview: Added automatically from request for surgery [id number] Generalized pain 10/10/2022 Overview: Added automatically from request for surgery [id number] Encounter for therapeutic drug monitoring 2022 Overview: Added automatically from request for surgery [id number] Other specified pre-operative examination 2022 Overview: Added automatically from request for surgery [id number] Dislocation of hip prosthesis 10/10/2022 Anemia 06/09/2021 [...] as of this encounter (statuses as of 12/23/2022) Resolved Problems Problem Noted Date Diagnosed Date Resolved Date SBO (small bowel obstruction) 03/12/2022 03/18/2022 High anion gap metabolic acidosis 03/12/2022 03/18/2022 SANDRA (acute kidney injury) 03/12/2022 Shock 03/12/2022 03/18/2022 documented as of this encounter (statuses as of 12/23/2022) Immunizations Name Administration Dates Next Due SEASONAL [...] as of this encounter Progress Notes * Tu Haque PA-C - 12/23/2022 4:11 PM EST PROGRESS NOTE - [facility] [address] [place] [address] Name: Remy Hillman [facility] Date: 12/23/2022 Time: 4:11 PM SUBJECTIVE: Patient is here today for first postop visit status post left total hip replacement. Teresa have a hip replacement Dr. Mon which dislocated that night and was returned to the OR and the retentive cup was placed. Has been stable ever since and done well since physical therapy. He comes in today ambulating with no groin pain. Little sore and stiff laterally and through the anterior muscles as expected. No new changes and at this time he has been very happy with his progress. He hadnumber of questions today which I did answer for him. OBJECTIVE: On examination he is alert and x3 no acute distress pleasant affect. Incision looks great kulwant were taken out there is no erythema warmth or drainage. He has no significant ecchymosis. Mild tenderness through the quad and hip flexor region as expected. Good sensation throughout he hasgood active flexion extension of the knee and good active dorsiflexion plantarflexion of the ankle.Good gentle internal/external rotation of the hip does not yield any discomfort. Imaging: X-rays taken today show well-placed total hip arthroplasty without periprosthetic fracture ASSESSMENT: Status post left total hip replacement PLAN: At this time we will continue with his physical therapy and strengthening. 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 He also like to go back shortly after Thanksgiving for a full work load if he is doing well so we will have him follow-up with Dr. Mon in 3 to 4 weeks for recheck and hopefully return to full work weekat that time. Attending: MD Tu Don PA-C documented in this encounter Nursing Notes * Floridalma Alicia, MED ASSIST - 12/23/2022 2:37 PM EST Post-Op L THR In PT Not taking anything for pain [place] removed X-ray completed today documented in this encounter Plan of Treatment Upcoming Encounters Date Type Department Care Team (Late st Contact Info) Description 12/26/2022 1:30 PM EST Rehab Services Physical Therapy[address] [address] Elda Espinosa, REVIVAL CLERK [address] [place] [address] 12/29/2022 10:30 AM EST Rehab Services Physical [address] [address] Kyara Mora, REVIVAL CLERK [address] [place] [address] 12/31/2022 10:30 AM EST Rehab Services Physical Therapy[address] [address] Elda Espinosa, REVIVAL CLERK [address] [place] [address] 01/05/2023 10:30 AM EST Rehab Services Physical Therapy, [address] [address] Criss Lewis, PT [address] [place] [address] 01/07/2023 10:30 AM EST Rehab Services Physical Therapy, [place] [address] [place] [address] Elda Espinosa, REVIVAL CLERK [address] [place] [address] 01/12/2023 10:30 AM EST Rehab Services Physical Therapy, [facility] [address] [place] [address] Elda Espinosa, REVIVAL CLERK [address] [place] [address] 01/14/2023 10:30 AM EST Rehab Services Physical Therapy, [address] [address] Criss Lewis, PT [address] [place] [address] 01/22/2023 3:50 PM EST Office Visit Orthopaedics [facility] [address] [place] [address] [facility] [address] [place] [address] [place] [address] Collin Mon MD [address] [place] [address] Pending Results Name Type Priority Associated Diagnoses Date /Time XR HIP 1 VIEW INCLUDING AP PELVIS Medical Imaging Routine Aftercare following surgery of the musculoskeletal system 12/23/2022 2:55 PM EST Health Maintenance Due Date Last Done Comments DISCUSS TOBACCO CESSATION (REFER TO SMARTSET #0669) 1960 COVID-19 Vaccine (#1) 1960 Pneumococcal Vaccine: [...] Albumin/Creatinine Ratio 02/21/2023 02/21/2022 HbA1c 05/05/2023 11/04/2022, /02/2022, 05/29/2022, Additional history exists GFR 12/11/2023 12/10/2022, 10/17, 05/30/2022, Additional history exists Lipid Panel 11/05/2027 11/04/2022, 07/2022, 02/05/2021, Additional history exists GARDASIL-HPV IMMUNIZATION SERIES Aged Out No longer eligible based on patient's age to complete this topic MENINGOCOCCAL (MENACTRA/MENVEO) Aged Out No longer eligible based on patient's age to complete this topic documented as of this encounter Medical Devices Implanted Type Area Banking Manager Device Identifier Shelf Expiration Date Model / Serial / Lot Liner Acetabular Rogers Altrx 10d +4mm Od54 Mm Id36 Mm Hip - [id number] Implanted:Qty: 1 on 12/09/2022 by Collin Mon MD [facility] Left: Hip ECHJ[employer]J DEPUY 10/16/2026 [id number] / / [id number] documented as of this encounter Visit Diagnoses [...] the patient have Health Care Power of Child Care Center Assistant Director? No Full Code 03/12/2022 1:21 AM 03/18/2022 [...] the patient have Health Care Power of Child Care Center Assistant Director? No Care Teams Disabilities Caregiver Relationship Specialty Start Date End Date Rajendra Sanchez MD [address] [place] [address] PCP - General Internal Medicine 04/23/18 documented as of this encounter
--- OUTSIDE RECORDS SUMMARY | 2023-05-19 03:24 | External Medical Summary | Summary of Care ---
Author Name Unknown Organization [facility] Address [address] [place] [address] Phone [phone] Care Team Providers Care Medical Office Technologist Name Role Phone Rajendra Sanchez MD Primary Care Provider Reason for Visit * Reason Comments Post-Op * Evaluate & Treat - Unlimited Visits (Within 10 days (routine)) - Authorized Specialty Diagnoses / Procedures Referred By Contac t Referred To Contact Physical Medicine and Rehab / Physical Medicine And Rehab Diagnoses Primary osteoarthritis of left hip Rajendra Sanchez MD [address] [place] [address] [place] [address] Referral ID Status Reason Start Date Expiration Date Visits Requested Visits Authorized [id number] Authorized Specialty Services Required 02/15/2023 28 28 Encounter Details Date Type Department Care Team (Late st Contact Info) Description 12/16/2022 9:45 AM EDT Rehab Services Physical Therapy, [facility] [address] [place] [address] Criss Lewis, PT [address] [place] [address] Status post total hip replacement, left*; Muscle weakness; Limited joint range of motion (ROM) Allergies No known active allergiesdocumented as of this encounter (statuses as of 12/16/2022) Medications Medication Sig Dispensed Refills Start Date [...] as of this encounter (statuses as of 12/16/2022) Active Problems Problem Noted Date Diagnosed Date Primary osteoarthritis of left hip 10/10/2022 Overview: Added automatically from request for surgery [id number] Generalized pain 10/10/2022 Overview: Added automatically from request for surgery [id number] Encounter for therapeutic drug monitoring 2022 Overview: Added automatically from request for surgery [id number] Other specified pre-operative examination 2022 Overview: Added automatically from request for surgery [id number] Dislocation of hip prosthesis 10/10/2022 Anemia 06/09/2021 [...] as of this encounter (statuses as of 12/16/2022) Resolved Problems Problem Noted Date Diagnosed Date Resolved Date SBO (small bowel obstruction) 03/12/2022 03/18/2022 High anion gap metabolic acidosis 03/12/2022 03/18/2022 SANDRA (acute kidney injury) 03/12/2022 Shock 03/12/2022 03/18/2022 documented as of this encounter (statuses as of 12/16/2022) Immunizations Name Administration Dates Next Due SEASONAL [...] Progress Notes * Criss Lewis, PT - 12/16/2022 9:50 AM EDT Outpatient Physical Therapy Daily Progress Note Physical Therapy, [place] [address] Patient Name: Remy Hillman Date of : 1960 Age: [age] year old Date: 12/16/2022 Onset Date: 12/09/2022 Start of Care: 12/12/2022 Plan of Care Expiration Date: 02/13/2023 Visit Number: 2 Precertification dates/visits: 28 Authorization number: 1 Referring Physician: Collin Mon MD Primary Care Physician: Rajendra Sanchez MD Encounter Diagnosis: Left total hip replacement Orders: Postop evaluate and treat Precautions: Anterior approach. Subjective: Patient reports he is feeling good today. Rates his pain a 1 or a 2/10. Reports he feels more stiffness and soreness. Objective: The patient is 1 week postop left total hip replacement. He arrived in therapy today ambulating with his cane. He takes very short stride lengths and has no toe off but he appeared to be balance using his cane. He performed the following exercises in physical therapy today: Active assistive stretching by the therapist into hip flexion-10 times Ankle pumps-20 times-home Long arc quads-30 times-add 1 lb weight next time Seated toe raises-30 Quad set-30 times Glute isometrics-30 times Short arc quads- 30 times-5 second hold-a 1 lb weight next time Supine hip abduction-30 times Ankle plantar flexion with blue Msfbj-Dfal-82 times-home Mini squats-10X Standing leg curl-2X10 Straight leg raise-10X with assist Total 1 on 1 exercise time was 40 minutes Assessment: Patient tolerated his therapy well. Had difficulty with a straight leg raises and required some assist. His other new exercises he tolerated well. Goals ongoing Plan: Continue physical therapy 2 times a week to improve range of motion muscle strength and gait following a left total hip replacement. Encouraged to use ice at home UNTIMED SERVICES: 0 MINUTES TIMED SERVICES: 40 MINUTES TOTAL TIMES: 40 MINUTES Criss Lewis, PT 12/16/2022 9:51 AM documented in this encounter Plan of Treatment Upcoming Encounters Date Type Department Care Team (Late st Contact Info) Description 12/18/2022 10:30 AM EDT Rehab Services Physical Therapy, [place] [phone] [place] [address] Criss Lewis, PT [address] [place] [address] 12/22/2022 10:30 AM EST Rehab Services Physical Therapy, [address] [address] Elda Espinosa, EMERGENCY RESPONSE TECHNICIAN [address] [place] [address] 12/23/2022 2:30 PM EST Office Visit Orthopaedics [facility] [address] [facility] [address] [place] [address] [place] [phone] Tu Haque PA-C [address] [facility] [address] [place] [address] [place] [address] 12/24/2022 9:45 AM EST Rehab Services Physical Therapy, [address] [address] Elda Espinosa, EMERGENCY RESPONSE TECHNICIAN [address] [place] [address] 12/26/2022 9:45 AM EST Rehab Services Physical Therapy, [address] [address] Elda Espinosa, EMERGENCY RESPONSE TECHNICIAN [address] [place] [address] 12/29/2022 10:30 AM EST Rehab Services Physical Therapy, [address] [address] Kyara Mora, EMERGENCY RESPONSE TECHNICIAN [address] [place] [address] 12/31/2022 10:30 AM EST Rehab Services Physical Therapy, [address] [address] Elda Espinosa, EMERGENCY RESPONSE TECHNICIAN [address] [place] [address] 01/05/2023 10:30 AM EST Rehab Services Physical Therapy, [address] [address] Criss Lewis, PT [address] [place] [address] 01/07/2023 10:30 AM EST Rehab Services Physical Therapy, [address] [address] Elda Espinosa, EMERGENCY RESPONSE TECHNICIAN [address] [place], [place] [id number] 01/12/2023 10:30 AM EST Rehab Services Physical Therapy, [facility] [address] [place], [place] [id number] Elda Espinosa, EMERGENCY RESPONSE TECHNICIAN [address] [place], [place] [phone] 01/14/2023 10:30 AM EST Rehab Services Physical Therapy, [facility] [address] [place] [address] Criss Lewis, PT [address] [place] [address] Health Maintenance Due Date Last Done Comments DISCUSS TOBACCO CESSATION (REFER TO SMARTSET #3722) 1960 COVID-19 Vaccine (#1) 1960 Pneumococcal Vaccine: [...] this encounter Medical Devices Implanted Type Area Track Welder Device Identifier Shelf Expiration Date Model / Serial / Lot Liner Acetabular Ramsey Altrx 10d +4mm Od54 Mm Id36 Mm Hip - [id number] Implanted:Qty: 1 on 12/09/2022 by Collin Mon MD at OR [facility] Left: Hip ECHJ&J DEPUY 10/16/2026 [id number] / / [id number] documented as of this encounter Visit Diagnoses [...] the patient have Health Care Power of Student Life Dean? No Full Code 03/12/2022 1:21 AM 03/18/2022 [...] the patient have Health Care Power of Student Life Dean? No Care Teams Medical Office Technologist Relationship Specialty Start Date End Date Rajendra Sanchez MD [address] [place] [address] PCP - General Internal Medicine 04/23/18 documented as of this encounter
--- OUTSIDE RECORDS SUMMARY | 2023-05-19 03:24 | External Medical Summary | Summary of Care ---
Author Name Unknown Organization [facility] Address [address] [place] [address] Phone [phone] Care Team Providers Care Rehab Office Coordinator Name Role Phone Rajendra Sanchez MD Primary [...] of left hip Rajendra Sanchez MD [address] [place] [address] [address] [address] Referral ID Status Reason Start Date Expiration Date Visits Requested Visits Authorized [id number] Authorized Specialty Services Required 3 02/15/2023 28 28 Encounter Details Date Type Department Care Team (Late st Contact Info) Description 12/22/2022 10:30 AM EST Rehab Services Physical Therapy, [facility] [address] [place] [address] Elda Espinosa NATURAL RESOURCE SPECIALIST [address] [place] [address] Muscle weakness*; Limited joint range of motion [...] Overview: Added automatically from request for surgery [id number] Generalized pain 10/10/2022 Overview: Added automatically from request for surgery [id number] Encounter for therapeutic drug monitoring 2022 Overview: Added automatically from request for surgery [id number] Other specified pre-operative examination 2022 Overview: Added automatically from request for surgery [id number] Dislocation of hip prosthesis 10/10/2022 Anemia 06/09/2021 [...] Progress Notes * Elda Espinosa, DANIELLE - 12/22/2022 10:37 AM EST Outpatient Physical Therapy Daily Progress Note Physical Therapy, [place] [address] Patient Name: Remy Hillman Date of : 1960 Age: [age] year old Date: 12/22/2022 Onset Date: 12/09/2022 Start of Care: 12/12/2022 Plan of Care Expiration Date: 02/13/2023 Visit Number: 4 Precertification dates/visits: 28 Referring Physician: Collin Mon MD Primary Care Physician: Rajendra Sanchez MD Encounter Diagnosis: Left total hip replacement Orders: Postop evaluate and treat Precautions: Anterior approach. Subjective: Pt reported that he is doing good. Reported he gets his kulwant out this week and is going to see if he can get medically cleared to return to work a few days. Pt reported his only problem is his endurance. Objective: Pt completed one on one TE x 41 minutes to increase strength and mobility in the L LE following THR. The following exercises were performed: Active assistive stretching by the therapist into hip flexion-10 times Ankle pumps-30 times Long arc quads-30 times Seated toe raises: 3# 30x Quad set: 30x Glute isometrics-30x Short arc quads:1# Supine hip abduction-20 times with 1 lb weight and 10 times no weight Ankle plantar flexion with blue Aqzfs-Gkto-50 times-home Mini squats-20X Standing leg curl-2X10 Straight leg raise-12x10 independently Standing pkmqcwc-llbghdkcg-76N Standing hip ljzipblda-jpxvjgbms-67 times Assessment: Pt is a 62 y.o. male who underwent a L THR on 12/09/2022. Pt will be getting kulwant out this week and continues to be off work. 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 Pt has most difficult with SLR although improved by completing these independently today. Pt was also able to progress SAQ, LAQ, and seated heel raises. Pt is still slow and caution when performing bed mobility. Goals ongoing. Plan: Continue physical therapy 2x/week as indicated by supervising PT to progress ROM and strengthfollowing Anterior L THR. UNTIMED SERVICES: 0 MINUTES TIMED SERVICES: 41 MINUTES TOTAL TIMES: 41 MINUTES Elda Espinosa PTA 12/22/2022 10:34-11:15 AM documented in this encounter Plan of Treatment Upcoming Encounters Date Type Department Care Team (Late st Contact Info) Description 12/23/2022 2:30 PM EST Office Visit Orthopaedics [facility] [address] [facility] [address] [place] [facility] [place] [phone] Tu Haque PA-C [address] [facility] [address] [place] [address] 12/24/2022 9:45 AM EST Rehab Services Physical Therapy, [address] [address] Elda Espinosa, NATURAL RESOURCE SPECIALIST [address] [place] [address] 12/26/2022 9:45 AM EST Rehab Services Physical Therapy, [address] [address] Elda Espinosa, NATURAL RESOURCE SPECIALIST [address] [place] [address] 12/29/2022 10:30 AM EST Rehab Services Physical Therapy, [address] [address] Kyara Mora, NATURAL RESOURCE SPECIALIST [address] [place] [address] 12/31/2022 10:30 AM EST Rehab Services Physical Therapy, [address] [address] lEda Espinosa, NATURAL RESOURCE SPECIALIST [address] [place] [address] 01/05/2023 10:30 AM EST Rehab Services Physical Therapy, [address] [address] Criss Lewis, PT [address] [place] [address] 01/07/2023 10:30 AM EST Rehab Services Physical Therapy, [address] [address] Elda Espinosa, NATURAL RESOURCE SPECIALIST [address] [place] [address] 01/12/2023 10:30 AM EST Rehab Services Physical Therapy, [address] [address] Elda Espinosa, NATURAL RESOURCE SPECIALIST [address] [place] [address] 01/14/2023 10:30 AM EST Rehab Services Physical Therapy, [facility] [address] [place] [address] Criss Lewis, PT [address] [place] [address] Health Maintenance Due Date Last Done Comments DISCUSS TOBACCO CESSATION (REFER TO SMARTSET #1222) 1960 COVID-19 Vaccine (#1) 1960 Pneumococcal Vaccine: [...] this encounter Medical Devices Implanted Type Area Cokeman Device Identifier Shelf Expiration Date Model / Serial / Lot Liner Acetabular [place] Altrx 10d +4mm Od54 Mm Id36 Mm Hip - [id number] Implanted:Qty: 1 on 12/09/2022 by Collin Mon MD at OR [facility] Left: Hip ECHJ&J DEPUY 10/16/2026 [id number] / / [id number] documented as of this encounter Visit Diagnoses [...] the patient have Health Care Power of Batter Out? No Full Code 03/12/2022 1:21 AM 03/18/2022 [...] the patient have Health Care Power of Batter Out? No Care Teams Rehab Office Coordinator Relationship Specialty Start Date End Date Rajendra Sanchez MD [address] [place] [address] PCP - General Internal Medicine 04/23/18 documented as of this encounter
--- OUTSIDE RECORDS SUMMARY | 2023-05-19 03:25 | External Medical Summary ---
Author Name Unknown Address Unknown Organization [place] [address] Laboratory Report Ordering Provider Test Date Status DEFAULT,POCT 12/09/2022 18:39:16 Final Observation Date Value Abnormality Reference (Units ) Status [facility] GLUCOSE POC STAT STRIP 12/09/2022 18:39:16 131 Above high normal 70-110 (mg/dL) Final [place] [address]
--- OUTSIDE RECORDS SUMMARY | 2023-05-19 03:25 | External Medical Summary | Summary of Care ---
Author Name Unknown Organization [facility] Address [address] [facility] [place] [place] [address] Care Team Providers Care International Trade Manager Name Role Phone Rajendra Sanchez MD Primary Care Provider Encounter Details Date Type Department Care Team (Latest Contact Info) Description 12/09/2022 7:11 AM EDT - 12/09/2022 8:06 AM EDT Hospital Encounter Radiology, [place] [address] [facility] [place] [phone] Arrived Discharge Disposition: Home - Self Care Allergies No known active allergiesdocumented as of this encounter (statuses as of 12/10/2022) Medications Medication Sig Dispensed Refills Start Date End Date Status Nortriptyline HCl 75 MG Oral Capsule Take 1 Capsule by mouth at bedtime. 0 Suspended Trulicity 0.75 MG/0.5ML Subcutaneous Solution Pen-injector (Dulaglutide) Inject 0.75 mg under the skin once a week. 0 Suspended lamoTRIgine 100 MG Oral Tablet Take 1 Tablet by mouth in the morning and 1 Tablet before bedtime. 0 Suspended Pantoprazole Sodium 20 MG Oral Tablet Delayed Release Take 1 Tablet by mouth in the morning. 0 Suspended Gabapentin 100 MG Oral Capsule (Neurontin) Take 2 Capsules by mouth at bedtime. Takes 100 mg AM and 200 mg PM 0 Suspended QUEtiapine Fumarate 50 MG Oral Tablet Take 1 Tablet by mouth at bedtime. 0 Suspended Aspirin 81 MG Oral Tablet Chewable Take 1 Tablet by mouth in the morning. 0 Suspended Metoprolol Tartrate 50 MG Oral Tablet (Lopressor) Take 1 Tablet by mouth in the morning and 1 Tablet before bedtime. 0 Suspended Gabapentin 100 MG Oral Capsule (Neurontin) Take 1 Capsule by mouth in the morning. Takes 100 mg AM and 200 mg PM. 0 Suspended Glimepiride 1 MG Oral Tablet (Amaryl) Take 1 Tablet by mouth daily before breakfast. 0 Suspended Vitamin D3 25 MCG (1000 UT) Oral Tablet Take 5 Tablets by mouth in the morning. 0 Suspended metFORMIN HCl 1000 MG Oral Tablet (Glucophage) 0 06/27/2022 Suspended Benazepril HCl 20 MG Oral Tablet (Lotensin) Take 1 Tablet by mouth in the morning. 1/2 tab daily. 0 Suspended Amoxicillin 500 MG Oral Capsule (Amoxil) Take 4 Capsules by mouth once for 1 dose. 1 hour prior to dental procedure 4 Capsule 3 09/30/2022 3 Discontinued Melatonin 3 MG Oral Capsule Take 1 Capsule by mouth at bedtime. 0 Suspended Acetaminophen 500 MG Oral Tablet (Tylenol) Take 1 Tablet by mouth once. TAKE NIGHT BEFORE SURGERY 0 3 Discontinued Celecoxib 200 MG Oral Capsule (CeleBREX) Take 1 Capsule by mouth once. TAKE NIGHT BEFORE SURGERY 0 Suspended Apixaban 2.5 MG Oral Tablet (Eliquis) Take 1 Tablet by mouth in the morning and 1 Tablet before bedtime. Start taking AFTER YOUR SURGERY. Take 1 tablet two times per day for 30 days.. 60 Tablet 0 12/01/2022 Suspended Additional Information documented as of this encounter (statuses as of 12/10/2022) Active Problems Problem Noted Date Diagnosed Date Primary osteoarthritis of left hip 10/10/2022 Overview: Added automatically from request for surgery [id number] Generalized pain 10/10/2022 Overview: Added automatically from request for surgery [id number] Encounter for therapeutic drug monitoring 2022 Overview: Added automatically from request for surgery [id number] Other specified pre-operative examination 2022 Overview: Added automatically from request for surgery [id number] Dislocation of hip prosthesis 10/10/2022 Anemia 06/09/2021 [...] as of this encounter (statuses as of 12/10/2022) Resolved Problems Problem Noted Date Diagnosed Date Resolved Date SBO (small bowel obstruction) 03/12/2022 03/18/2022 High anion gap metabolic acidosis 03/12/2022 03/18/2022 SANDRA (acute kidney injury) 03/12/2022 Shock 03/12/2022 03/18/2022 documented as of this encounter (statuses as of 12/10/2022) Immunizations Name Administration Dates Next Due SEASONAL [...] 10:30 AM EDT [facility], [address] [address] Criss Lewis, PT [address] [place] [address] 12/16/2022 9:45 AM EDT [facility], [address] [address] Criss Lewis, PT [address] [place] [address] 12/18/2022 10:30 AM EDT Rehab Services Physical [facility], [address] [address] Criss Lewis, PT [address] [place] [address] 12/22/2022 10:30 AM EST Rehab Services Physical [facility], [address] [address] Elda Espinosa, TEACHER ASST [address] [place] [address] 12/23/2022 2:30 PM EST Office Visit Orthopaedics [facility] [address] [facility] [address] [place] [address] [place] [phone] Tu Haque PA-C [address] [facility] [place] [address] [place] [address] 12/24/2022 9:45 AM EST [facility], [address] [address] Elda Espinosa, TEACHER ASST [address] [place] [address] 12/26/2022 9:45 AM EST Re[facility] Services Physical Therapy, [facility] [address] [place] [address] TomekaElda escalona, [facility] [address] [place] [address] Health Maintenance Due Date Last Done Comments DISCUSS TOBACCO CESSATION (REFER TO SMARTSET #0582) 1960 COVID-19 Vaccine (#1) 1960 Pneumococcal Vaccine: Pediatrics (0 to 5 Years) and At-Risk Patients (6 to 64 Years) (1 - PCV) 1965 Depression Screening 1971 DIABETES-EYE EXAM 1977 Diabetic Foot Exam 1977 Hepatitis C [...] this encounter Medical Devices Implanted Type Area Hedge Trimmer Device Identifier Shelf Expiration Date Model / Serial / Lot Head Feml 36mm +1.5mm 01/29 Tpr Hip Blx D Art/Rafat Strl Lf - [id number] Implanted:Qty: 1 on 12/09/2022 by Collin Mon MD at OR [facility] Left: Hip ECH[employer] DEPUY 05/17/2027 [id number] / / [id number] documented as of this encounter Procedures Procedure Name Priority Date/Time Associated Diagnosis Comments XR INTRA-OP C-ARM CASE Routine 12/09/2022 1:06 PM EDT Hip pain, left documented in this encounter Results * XR INTRA-OP C-ARM CASE (12/09/2022 1:06 PM EDT) Narrative Scheduling, Silent - 12/09/2022 1:07 PM EDT This procedure will not be read by a Radiologist. Please see operative note. Collin Mon MD RADIOLOGY (RAD GEN ERAL) documented in this encounter Visit Diagnoses Diagnosis Hip pain, left Pain in joint, pelvic region and thigh documented in this encounter Advance Directives Latest Code Status on File Code Status Date Activated Date Inactivated Comments Full Code 12/09/2022 4:30 PM This orde r reflects the patients wishes and were consensually agreed upon. Question Answer Comments Discussion of Advance Directives occurred with: Not Discussed due to patient's condition Code Status History Code Status Date Activated Date Inactivated Comments Full Code 12/09/2022 8:18 AM 12/09/2022 4:30 PM Th is order reflects the patients wishes and were [...] the patient have Health Care Power of Revenue Audit Clerk? No Full Code 03/12/2022 1:21 AM 03/18/2022 [...] the patient have Health Care Power of Revenue Audit Clerk? No Care Teams International Trade Manager Relationship Specialty Start Date End Date Rajendra Sanchez MD [address] [place] [address] PCP - General Internal Medicine 04/23/18 documented as of this encounter
--- OUTSIDE RECORDS SUMMARY | 2023-05-19 03:25 | External Medical Summary ---
Author Name Unknown Address Unknown Organization [place] [address] Laboratory Report Ordering Provider Test Date Status DEFAULT,POCT 12/09/2022 21:23:24 Final Observation Date Value Abnormality Reference (Units ) Status [facility] GLUCOSE POC STAT STRIP 12/09/2022 21:23:24 154 Above high normal 70-110 (mg/dL) [place] [address]
--- OUTSIDE RECORDS SUMMARY | 2023-05-19 03:25 | External Medical Summary ---
Author Name Unknown Address Unknown Organization [place] [address] Laboratory Report Ordering Provider Test Date Status DEFAULT,POCT 12/10/2022 07:14:05 Final Observation Date Value Abnormality Reference (Units ) Status [facility] GLUCOSE POC STAT STRIP 12/10/2022 07:14:05 135 Above high normal 70-110 (mg/dL) [place] [address]
--- OUTSIDE RECORDS SUMMARY | 2023-05-19 03:25 | External Medical Summary ---
Author Name Unknown Address Unknown Organization [place] [address] Laboratory Report Ordering Provider Test Date Status MARK DE LEON 12/10/2022 06:24:00 Final Observation Date Value Abnormality Reference (Units ) Status [facility] WHITE BLOOD CELL COUNT 12/10/2022 06:24:00 9.1 4.0-10.5 (K/uL) Final [facility] RED BLOOD CELL COUNT 12/10/2022 06:24:00 3.35 Below low normal 4.70-6.00 Final Hemoglobin 12/10/2022 06:24:00 9.7 Below low normal 13.5-18 (g/dL) Final HCT 12/10/2022 06:24:00 28.4 Below low normal 42-52 (%) Final [facility] MEAN CORPUSCULAR VOLUME 12/10/2022 06:24:00 84.9 78.0-100.0 (fl) Final [facility] MCH 12/10/2022 06:24:00 28.9 27.0-31.0 (pg) Final [facility] MCHC 12/10/2022 06:24:00 34.1 32.5-36.0 (g/dL) Final [facility] RED CELL DIST WIDTH 12/10/2022 06:24:00 14.5 Above high normal 11.5-14.0 (%) Final [facility] PLATELET COUNT 12/10/2022 06:24:00 191 150-450 (K/uL) Final [facility] MPV 12/10/2022 06:24:00 7.9 6.5-9.5 (fL) [place] [address]
--- OUTSIDE RECORDS SUMMARY | 2023-05-19 03:25 | External Medical Summary ---
Author Name Unknown Address Unknown Organization [place] [address] Laboratory Report Ordering Provider Test Date Status DEFAULT,POCT 12/10/2022 11:22:21 Final Observation Date Value Abnormality Reference (Units ) Status [facility] GLUCOSE POC STAT STRIP 12/10/2022 11:22:21 198 Above high normal 70-110 (mg/dL) [place] [address]
--- OUTSIDE RECORDS SUMMARY | 2023-05-19 03:25 | External Medical Summary | Summary of Care ---
Author Name Unknown Organization [facility] Address [address] [place] [address] Care Team Providers Care Critical Care Unit Manager Name Role Phone Rajendra Sanchez MD Primary Care Provider Encounter Details Date Type Department Care Team Description 12/01/2022 Orders Only Orthopaedics [facility] [address] [phone] Tu Haque PA-C [address] [place] [address] Allergies No known active allergiesdocumented as of this encounter (statuses as of 12/01/2022) Medications Medication Sig Dispensed Refills Start Date [...] Gabapentin 100 MG Oral Capsule (Neurontin) Take 3 Capsules by mouth at bedtime. Takes 100 [...] Capsule by mouth at bedtime. 0 Active Acetaminophen 500 MG Oral Tablet (Tylenol) Take 1 Tablet by mouth once. TAKE NIGHT BEFORE SURGERY 0 Active Celecoxib 200 MG Oral Capsule (CeleBREX) Take 1 Capsule by mouth once. TAKE NIGHT BEFORE SURGERY 0 Active Apixaban 2.5 MG Oral Tablet (Eliquis) Take 1 Tablet by mouth in the morning and 1 Tablet before bedtime. Start taking AFTER YOUR SURGERY. Take 1 tablet two times per day for 30 days.. 60 Tablet 0 12/01/2022 Active documented as of this encounter (statuses as of 12/01/2022) Active Problems Problem Noted Date Primary osteoarthritis of left hip 10/10 Overview: Added automatically from request for surgery [id number] Generalized pain 10/10/2022 Overview: Added automatically from request for surgery [id number] Encounter for therapeutic drug monitorin g 10/10/2022 Overview: Added automatically from request for surgery [id number] Other specified pre-operative examinatio n 10/10/2022 Overview: Added automatically from request for surgery [id number] Anemia 06/09/2021 Sepsis 06/08/2021 Cellulitis of right lower extremity 05/18 Primary hypertension 06/08/2021 Bipolar affective disorder, currently ac tive 06/08/2021 Elevated liver enzymes 06/08/2021 Type 2 diabetes mellitus wit hout complication, without long-term current use of insulin 06/08/2021 Gastroesophageal reflux disease without esophagitis 06/08/2021 Primary osteoarthritis of right hip 05/18 MALIA (obstructive sleep apnea) 06/08/2021 Hyperlipidemia 08/29/2011 documented as of this encounter (statuses as of 12/01/2022) Resolved Problems Problem Noted Date Resolved Date SBO (small bowel obstruction) 03/12/2022 High anion gap metabolic acidosis 03/12/2022 03/18/2022 SANDRA (acute kidney injury) 03/12/20222022 Shock 03/12/2022 03/18/2022 documented as of this encounter (statuses as of 12/01/2022) Immunizations Name Administration Dates Next Due SEASONAL INFLUENZA, PF, 6 M & Above, IM , (FLULAVAL or FLUZONE) 03/18/2022 documented as of this encounter Social History Tobacco Use Types Packs/Day Years Used Date Smoking Tobacco: Every Day Cigars Smokeless Tobacco: Former Chew, Snuff Alcohol Use Standard Drinks/Week Comments Not Currently 0 (1 standard drink = 0.6 oz pure alcohol) 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 Never 06/08/2021 How many drinks containing a lcohol do you have on a typical day when you are drinking? Not asked How often do you have six or more drinks on one occasion? Not asked Sex Assigned at Date Recorded Not on file Job Start Date Occupation [...] Plan of Treatment Upcoming Encounters Date Type Specialty Care Team Description 12/09/2022 Hospital Encounter Collin Mon MD [address] [place] [place] [address] 12/09/2022 Anesthesia Event Janice Wills CRNP [address] [facility] [place] [address] 12/09/2022 Surgery Collin Mon MD [address] [place] [address] ARTHROPLASTY TOTAL HIP 12/12/2022 Rehab Services [facility] Criss Lewis, PT [address] [place] [address] 12/16/2022 Re[facility] Criss Lewis, PT [address] [place] [address] 12/18/2022 Re[facility] Criss Lewis, PT [address] [place] [address] 12/22/2022 Rehab Services [facility] Criss Lewis, PT [address] [place] [address] 12/24/2022 Rehab Services [facility] Elda Espinosa, SNACK FOODS MIXER OPERATOR [address] [place] [address] 12/26/2022 Rehab Services Physical [facility] Re[facility] Elda Espinosa, SNACK FOODS MIXER OPERATOR [address] [place] [address] Scheduled Procedures Name Priority Associated Diagnoses Date/Ti me ARTHROPLASTY TOTAL HIP Primary osteoarthritis of left hip Generalized pain Encounter for therapeutic drug monitoring Other specified pre-operative examination 12/09/2022 11:00 AM EDT Health Maintenance Due Date Last Done Comments DISCUSS TOBACCO CESSATION (REFER TO SMARTSET #3293) 1960 COVID-19 Vaccine (#1) 1960 Pneumococcal Vaccine: [...] (2 - Td or Tdap) 03/02/2018 03/02/2008 Influenza Vaccine (FLU shot) (#1) 2022 03/18/2022, 03/02/2008, 12/08/2002 Albumin/Creatinine Ratio 02/21/2023 02/21/2022 HbA1c 05/05/2023 11/04/2022, 05/3 02/2022, 05/29/2022, Additional history exists GFR 11/05/2023 11/04/2022, 05/17, 05/29/2022, Additional history exists Lipid Panel 11/05/2027 11/04/2022, 0107/2022, 02/05/2021, Additional history exists HIV Screening Completed 03/13/2022 GARDASIL-HPV IMMUNIZATION SERIES Aged Out No longer eligible based on patient's age to complete this topic Hepatitis B Aged Out No longer eligi ble based on patient's age to complete this topic MENINGOCOCCAL (MENACTRA/MENVEO) Aged Out No longer eligible based on patient's age to complete this topic documented as of this encounter Medical Devices Not on filedocumented as of this encounter Advance Directives Latest Code Status on File Code Status Date Activated Date Inactivated Comments Full Code 05/28/2022 11:56 AM 05/30/2022 3:43 PM This order reflects the patients wishes and were consensually agreed upon. Question Answer Comments Discussion of Advance Directives occurred with: Patient Does the patient have a Living Will? No Does the patient have Health Care Power of Middle School Reading Teacher? No Code Status History Code Status Date Activated Date Inactivated Comments Full Code 03/12/2022 1:21 AM 03/18/2022 5:04 [...] the patient have Health Care Power of Middle School Reading Teacher? No Care Teams Critical Care Unit Manager Relationship Specialty Start Date End Date Rajendra Sanchez MD [address] [place] [address] PCP - General Internal Medicine 04/23/18 documented as of this encounter
--- OUTSIDE RECORDS SUMMARY | 2023-05-19 03:25 | External Medical Summary ---
Author Name Unknown Address Unknown Organization [place] [address] Laboratory Report Ordering Provider Test Date Status DEFAULT,POCT 12/09/2022 13:54:09 Final Observation Date Value Abnormality Reference (Units ) Status [facility] GLUCOSE POC STAT STRIP 12/09/2022 13:54:09 88 70-110 (mg/dL) [place] [address]
--- OUTSIDE RECORDS SUMMARY | 2023-05-19 03:25 | External Medical Summary | Summary of Care ---
Author Name Unknown Organization [facility] Address [address] [facility] [place] [address] Care Team Providers Care Car Salter Name Role Phone Rajendra Sanchez MD Primary Care Provider Reason for Referral * Evaluate & Treat - Unlimited Visits (Within 10 days (routine)) - Pending Review Specialty Diagnoses / Procedures Referred By Adrian bush Referred To Contact Physical Therapy / Physical Medicine And Rehab Diagnoses Primary osteoarthritis of left hip Dislocation of hip joint prosthesis, initial encounter Porter Chapa PA-C [address] [place] [address] [place] [address] Referral ID Status Reason Start Date Expiration Date Visits Requested Visits Authorized [id number] Pending Review Specialty Services Required 3 [phone] Question Answer Referral Priority Within 10 days (routine) Where should this appointment be scheduled? Internal Comments S/p left anterior THR Discharge Order Reason for Visit * Auth/Cert Specialty Diagnoses / Procedures Referred By Adrian bush Referred To Contact Diagnoses Primary osteoarthritis of left hip Generalized pain Encounter for therapeutic drug monitoring Other specified pre-operative examination Primary osteoarthritis of left hip [M16.12] Generalized pain [R52] Encounter for therapeutic drug monitoring [Z51.81] Other specified pre-operative examination [Z01.818] Procedures TOTAL HIP REPLACEMENT & PROSTHESIS ARTHROPLASTY TOTAL HIP Referral ID Status Reason Start Date Expiration Date Visits Re quested Visits Authorized [id number] [phone] Encounter Details Date Type Department Care Team (Latest Contact Info) Description 12/09/2022 8:07 AM EDT - 12/10/2022 2:43 PM EDT Hospital Encounter Orthopaedics, [facility] [address] [place] [address] Ivory Vitale MD [address] [facility] [place] [id number] Pt Handout (not on AVS) Discharge Disposition: Home - Self Care Allergies No known active allergiesdocumented as of this encounter (statuses as of 12/11/2022) Medications Medication Sig Dispensed Refills Start Date [...] Capsule by mouth at bedtime. 0 Active Apixaban 2.5 MG Oral Tablet [...] for 7 days. 7 Capsule 0 12/10/2022 3 Active Amoxicillin 500 MG Oral Capsule (Amoxil) Take 4 Capsules by mouth once for 1 dose. 1 hour prior to dental procedure 4 Capsule 3 09/30/2022 3 Discontinued Acetaminophen 500 MG Oral Tablet (Tylenol) Take 1 Tablet by mouth once. TAKE NIGHT BEFORE SURGERY 0 3 Discontinued documented as of this encounter (statuses as of 12/11/2022) Active Problems Problem Noted Date Diagnosed Date Primary osteoarthritis of left hip 10/10/2022 Overview: Added automatically from request for surgery [id number] Generalized pain 10/10/2022 Overview: Added automatically from request for surgery [id number] Encounter for therapeutic drug monitoring 2022 Overview: Added automatically from request for surgery [id number] Other specified pre-operative examination 2022 Overview: Added automatically from request for surgery [id number] Dislocation of hip prosthesis 10/10/2022 Anemia 06/09/2021 [...] as of this encounter (statuses as of 12/11/2022) Resolved Problems Problem Noted Date Diagnosed Date Resolved Date SBO (small bowel obstruction) 03/12/2022 03/18/2022 High anion gap metabolic acidosis 03/12/2022 03/18/2022 SANDRA (acute kidney injury) 03/12/2022 Shock 03/12/2022 03/18/2022 documented as of this encounter (statuses as of 12/11/2022) Immunizations Name Administration Dates Next Due SEASONAL [...] on file documented as of this encounter Last Filed Vital Signs Vital Sign Reading Time Taken Comments Blood Pressure 112/68 12/10/2022 11:25 AM EDT Pulse 92 12/10/2022 11:25 AM EDT Temperature 37.1 C (98.8 F) 12/10/2022 11:25 AM E DT Respiratory Rate 18 12/10/2022 7:40 AM EDT Oxygen Saturation 94% 12/10/2022 11:25 AM EDT Inhaled Oxygen Concentration - - Weight 125 kg (275 lb 9.2 oz) 12/09/2022 8:35 AM EDT Height 181.6 cm (5' 11.5") 12/09/2022 8:35 AM ED T Body Mass Index 37.9 12/09/2022 8:35 AM EDT documented in this encounter Functional Status Functional Status Response [...] No 05/28/2022 documented as of this encounter Discharge Summaries * Porter Chapa PA-C - 12/10/2022 9:21 AM EDT Images from the original note were not included. [facility] PB4 ORT-4607/01 Admission Date: 12/09/2022 Discharge Date: 12/10/2022 DISCHARGE DIAGNOSES: Active Hospital Problems Diagnosis *Principal Diagnosis - Primary osteoarthritis of left hip Generalized pain Encounter for therapeutic drug monitoring Other specified pre-operative examination Dislocation of hip prosthesis Resolved Hospital Problems No resolved problems to display. Other Significant Diagnoses: none CONDITION ON DISCHARGE: good Cognition: normal DISPOSITION ON DISCHARGE: Home FOLLOW-UP: Future Appointments Appt Date/Time Provider Department 12/12/2022 10:30 AM Criss Lewis PT Physical Therapy, [facility] 12/16/2022 9:45 AM Criss Lewis PT Physical Therapy, [facility] 12/18/2022 10:30 AM Criss Lewis PT Physical Therapy, [facility] 12/22/2022 10:30 AM Criss Lewis PT Physical Therapy, [facility] 12/23/2022 2:30 PM Tu Haque PA-C Orthopaedics [facility] [address] [facility] 12/24/2022 9:45 AM Elda Espinosa PTA Physical Therapy, [facility] 12/26/2022 9:45 AM Elda Espinosa PTA Physical Therapy, [facility] MEDICATIONS ON DISCHARGE: MEDICATION UPDATES AT DISCHARGE START taking these medications INSTRUCTIONS Acetaminophen 500 MG Capsule Replaces: Acetaminophen 500 MG Tablet Take 2 Capsules by mouth in the morning and 2 Capsules at noon and 2 Capsules before bedtime. CeleBREX 200 MG Capsule Generic drug: celecoxib Take 1 Capsule by mouth once. TAKE NIGHT BEFORE SURGERY traMADol 50 MG Tablet Commonly known as: Ultram Take 1 Tablet by mouth every 6 hours as needed for Pain, Moderate (May take an additional tablet every 6 hours as needed for severe pain). moderate pain 4-7/10 or severe pain 8-10/10. MMD: 8 tablets/day CONTINUE taking these medications INSTRUCTIONS Apixaban 2.5 MG Tabs Commonly known as: Eliquis Take 1 Tablet by mouth in the morning and 1 Tablet before bedtime. Start taking AFTER YOUR SURGERY.Take 1 tablet two times per day for 30 days.. aspirin 81 MG chewable tablet Take 1 Tablet by mouth in the morning. benazepril 20 MG Tablet Commonly known as: Lotensin Take 1 Tablet by mouth in the morning. 1/2 tab daily. cholecalciferol (VIT D3) 1000 UNITS Tablet Commonly known as: Vitamin D3 Take 5 Tablets by mouth in the morning. * Gabapentin 100 MG Capsule Commonly known as: Neurontin Take 2 Capsules by mouth at bedtime. Takes 100 mg AM and 200 mg PM * Gabapentin 100 MG Capsule Commonly known as: Neurontin Take 1 Capsule by mouth in the morning. Takes 100 mg AM and 200 mg PM. Glimepiride 1 MG Tablet Commonly known as: Amaryl Take 1 Tablet by mouth daily before breakfast. lamoTRIgine 100 MG Tablet Commonly known as: LaMICtal Take 1 Tablet by mouth in the morning and 1 Tablet before bedtime. Melatonin 3 MG Capsule Take 1 Capsule by mouth at bedtime. MetFORMIN 1000 MG Tablet Commonly known as: Glucophage Metoprolol Tartrate 50 MG Tablet Commonly known as: Lopressor Take 1 Tablet by mouth in the morning and 1 Tablet before bedtime. nortriptyline 75 MG Capsule Commonly known as: Pamelor Take 1 Capsule by mouth at bedtime. pantoprazole 20 MG Tbec Commonly known as: Protonix Take 1 Tablet by mouth in the morning. QUEtiapine 50 MG Tablet Commonly known as: SEROquel Take 1 Tablet by mouth at bedtime. Trulicity 0.75 MG/0.5ML Sopn Generic drug: Dulaglutide Inject 0.75 mg under the skin once a week. * This list has 2 medication(s) that are the same as other medications prescribed for you. Read thedirections carefully, and ask your doctor or other care provider to review them with you. STOP taking these medications Acetaminophen 500 MG Tablet Commonly known as: Tylenol Replaced by: Acetaminophen 500 MG Capsule Amoxicillin 500 MG Capsule Commonly known as: Amoxil ALLERGIES: Patient has no known allergies. INSTRUCTIONS: Activity: No restrictions Diet: normal diet Code status (this admission): Full Code Discussion of adv directives occurred with - adult: Not Discussed due to patient's condition Indwelling devices: none ADMISSION HISTORY & PHYSICAL EXAM (focused): This is a 62 year-old male with left hip osteoarthritis who failed conservative treatment and who was admitted for an elective left total hip replacement to be done by Dr. Vitale. Please see his OP report for complete details. HOSPITAL COURSE (focused): After undergoing the above stated procedure without any complications the patient was evaluated in the PACU and noted to have pain out of proportion in his left hip. He was also noted to have external rotation and shortening of the left extremity. An x-ray was done in PACU which revealed a superiorlateral dislocation of the femoral head in comparison to the acetabulum. He was taken back to the operating room that evening for an open reduction and had a polyliner and femoral head exchange. Postoperatively he did much better and was transferred to the orthopedic floor. On postop day #1 Remy stated that he felt much better after getting out of the operating room the second time. His pain hasbeen well tolerated on a small amount of oral pain medication, Tylenol and ice. He was able to ambulate with physical therapy and Occupational Therapy using the assistance of a walker. His pain was well managed on oral pain medication. He was hemodynamically stable and able to be discharged to home. He denied any chest pain, shortness of breath, nausea or syncope. On physical exam he was noted edmond awake and oriented 3 and in no acute distress. His incision was clean, dry, and intact withoutany evidence of erythema or infection. He had the expected amount of ecchymosis and edema around his incision. There was no pain to palpation of the calf or thigh. He had full plantarflexion and dorsi flexion of the his ankles. He was neurovascularly intact to sensation distally. Throughout the patient's hospital stay he received adequate pain control with tramadol and acetaminophen. He received Eliquis 2.5 mg twice daily for deep venous thrombosis prophylaxis throughout his hospital stay. The hemoglobin was monitored throughout the hospital stay and on the date of discharge was noted to be 9.7. He received both Physical Therapy and Occupational Therapy throughout there hospital stay. He did not require a Hospitalist consult or a blood transfusion throughout the hospital stay. Remy was deemed stable for discharge to home on 12/10/2022. Operations & Procedures: Left anterior total hip arthroplasty Complications: His initial total hip replacement did not have any intraoperative complications, butpostoperatively he was found to have a dislocation of the femoral head superior and lateral in comparison to the acetabulum. His second surgery on the left hip had no complications.. SIGNIFICANT RESULTS: Vital Signs (last recorded): Most Recent Systolic BP: 113 mmHg (12/10/22 0740) Most Recent Diastolic BP: 67 mmHg (12/10/22 0740) Pulse: 94 (12/10/22 0740) Resp: 18 (12/10/22 0740) Most Recent Temperature: 37.22 C (12/10/22 0740) Weight: 125 kg (275 lb 9.2 oz) (12/09/22 0835) SpO2: 94 % (12/10/22 0740) O2 flow rate: 0 L/MIN (12/09/22 1600) Imaging (focused): X-rays in PACU after his first surgery revealed a superolateral dislocation of the femoral head in comparison to the acetabulum. Intraoperative films during his second surgery show a successful reduction of the total hip arthroplasty. CONSULTS ORDERED: ADULT PHYSICAL THERAPY CONSULT IP ADULT OCCUPATIONAL THERAPY CONSULT IP CARE MANAGEMENT CONSULT IP REFERRING PHYSICIAN: Ref: IVORY VITALE[[id number]] [address] [place] [address] (office) [phone] (fax) PRIMARY CARE PROVIDER: PCP: Rajendra Sanchez MD [address] [facility] [address] / [place] [address] (office) [phone] (fax) * Nahomi Bello RN - 12/09/2022 7:55 AM EDT Orthopaedics Helpful Hints Call [facility] [phone] TAKE YOUR BLOOD THINNER ELIQUIS (aka APIXABAN) -MORNING AND NIGHT FOR 30 DAYS (EVERY 12 HOURS) (EXAMPLES 8 A.M. AND 8 P.M.) WEAR YOUR ALFIE HOSE STOCKINGS FOR 30 DAYS, HAND WASH ONLY ON IN AM OFF IN PM DO YOUR HOME PHYSICAL THERAPY EXERCISES TWICE A DAY; UNLESS YOU SEE THE THERAPIST THAT DAY, THEN JUST DO ONE SET AT HOME. USE YOUR INCENTIVE SPIROMETER! 10 DEEP BREATHS EVERY HOUR WHILE AWAKE. ESPECIALLY IF YOU ARE TAKINGNARCOTICS. AQUACEL BANDAGE- KEEP IN PLACE FOR SEVEN (7)- DAYS. REMOVE AT HOME. FOLLOW DISCHARGE PACKET INSTRUCTIONS. KEEP INCISION CLEAN, DRY, AND INTACT. YOU MAY WASH AROUND THE INCISION WITH SOAP AND WATER. *KEEP INCISION COVERED IF YOU HAVE DRAINAGE OR HAVE PETS. DR. DUKES HIPS, BEGIN DAILY DRESSING CHANGES ONCE YOU GET HOME. FOLLOW DISCHARGE INSTRUCTIONS. BE AWARE YOUR SLEEP PATTERN MAY BE ABNORMAL FOR A FEW WEEKS. YOUR APPETITE MAY TAKE TIME TO RETURN. BE MINDFUL TO EAT. YOU NEED TO HEAL. PAIN MEDICATION MAY CAUSE CONSTIPATION - PLEASE HAVE STOOL SOFTENERS/LAXATIVES AT HOME. DO NOT GO MORE THAN 2 DAYS WITHOUT A BOWEL MOVEMENT. CALL [facility] [phone], WITH CONCERNS REGARDING YOUR RECOVERY. AVAILABLE 08/09! AFTER 5 P.M. AND WEEKENDS FOLLOW THE INSTRUCTIONS TO TALK TO THE PROVIDER ALUMINUM SIDING APPLICATOR. SIGNS OF INFECTION: REDNESS, HEAT, INCREASED PAIN, INCREASED DRAINAGE, FEVER. SIGNS OF BLOOD CLOT IN LEG (DVT): SWELLING, REDNESS, WARMTH, PAIN IN THE ANKLE, CALF OR THIGH THAT DOES NOT GO AWAY WITH ELEVATION OF LEG. FALLS/CUTS/OPEN AREAS/EXCESSIVE BRUISING/SIGNS OF BLEEDING NAUSEA/VOMITING CALL 911 SIGNS OF PULMONARY EMBOLISM (BLOOD CLOT IN LUNG): CHEST TIGHTNESS/PAIN HEART RACING SHORTNESS OF BREATH TAKE PAIN MEDICATIONS NEEDED/PRESCRIBED. REMEMBER ICE AND ELEVATION!! PRE- MEDICATE AN HOUR BEFORE PHYSICAL THERAPY! documented in this encounter Discharge Instructions * Discharge Instr - AVS* Porter Chapa PA-C - 12/09/2022 11:21 AM EDT Discharge Date: 12/10/2022 Surgeon: Dr. Vitale Procedure(s): Left Total Hip replacement on 12/09/2022 Pain Control - Combination of therapy/treatments to control your pain. - Administration instructions listed in Medication section. - Prescription pain medications were sent to the [facility] Tramadol 50 m tablet every 6 hours as needed for moderate pain, or 2 tablets every 6 hours as needed for severe pain. Tylenol 1000mg every 8 hours for 30 days. Ice pack 4 times per day. Activity Full weightbearing with walker. No strenuous activity for 2 weeks. No lifting greater than 10 pounds for 2 weeks. - Elevate the operative extremity throughout your day as needed for comfort and to decrease swelling. Assistive Device -Use a walker to walk until cleared by physical therapy Driving -Do not drive until cleared by orthopedic surgery. Return to Work -No work until cleared by physician at your follow-up appointment. Therapy -Continue therapy as directed by physical therapist at discharge. Take your outpatient physical therapy prescription with you to your first appointment. Wound Care - Maintain Aquacel dressing for 7 days. Can then remove and use a gauze over your fay. Fay will be removed at your follow-up appt. - Do not pick at or pull the skin closure materials. No creams or ointments to the wound. Hygiene - You may shower with your Aquacel on, and then after it is removed, if there is no drainage. - No soaking in tubs, no swimming. Blood Clot Prevention -Wear compression stockings during the day for 30 days. May remove at night. -Eliquis twice daily for 30 days Diet -Resume preop diet. - Do NOT drink alcoholic beverages while recovering from surgery. Follow-up Appointments -Call [facility] at [phone] to confirm appointment in 2 weeks. Contact your primary care physician within one week of discharge to discuss the need for a visit after your hospital admission. Call Orthopaedics for: - Persistent fever greater than 101 degrees F (38.3 degrees C) - Increasing pain not controlled with current medication - Wound drainage saturating multiple dressings and/or clothing - Spreading/increasing redness (some redness is normal) - Any other questions, concerns or test results - Pain medication cannot be refilled outside of normal business hours. Call PCP, 911, or go to nearest Emergency Room for: - chest pain - shortness of breath or difficulty breathing - uncontrolled nausea/vomiting/diarrhea documented in this encounter H&P Notes * Ivory Vitale MD - 12/09/2022 8:15 AM EDT I examined the patient today. I reviewed the H&P previously performed on 11/12/[address] Sanchez. There are no new findings or interval changes noted. documented in this encounter Procedure Notes * MALIA Gaytan - 12/03/2022 3:17 PM EDT Patient has a RW that is his and will bring with him. Has transportation to PT which he will be scheduling with [facility] PT. Will let SW know when and what time. documented in this encounter Consult Notes * RAVINDER Fischer/Jermaine - 12/10/2022 10:07 AM EDTAssociated Order(s): ADULT OCCUPATIONAL THERAPY CONSULT IP [facility] PB[facility] ORT-4607/01 OT Evaluation Remy Hillman is a/an 62 year old male. Patient Status: SORU (23 hr Surgical Overnight) Insurance: Payor: [facility] [facility] OOS Plan: [facility] OOS Product Type: *No Product type* Payor: [employer] [facility] OOS Plan: [place] Product Type: *No Product type* Patient Seen: at bedside, nursing cleared patient for therapy Patient Identified By: Name, ID Band and Date Diagnosis: LTHR (12/10/22957) Status of Treatment: Evaluation completed (12/10/22957) Orders: OT evaluation and treatment (12/10/22957) Weight Bearing Status: Weight bearing as tolerated (12/10/22957) Precautions: Falls;Safety (no hyperextension of L hip) (12/10/22957) Anticipated Frequency (on eval): (initial evaluation only) (12/10/22957) OT Treatment Time Time In/Out: (12/10/22957) Individual Time (minutes): 28 (12/10/22957) Total Treatment Time: 28 (12/10/22957) Past Medical History: Past Medical History: Diagnosis Date Anemia iron deficiency Bipolar disorder (HCC) Diabetes (HCC) DM neuropathy, type II diabetes mellitus (HCC) GERD (gastroesophageal reflux disease) Hyperlipidemia Hypertension Osteoarthritis Sleep apnea Past Surgical History: Past Surgical History: Procedure Laterality Date FOOT/TOE SURGERY NEC Right GA ARTHRP ACETBLR/PROX FEM PROSTC AGRFT/ALGRFT TOTAL HIP REPLACEMENT & PROSTHESIS Right 2021 TOTAL HIP REPLACEMENT & PROSTHESIS Left 12/09/2022 ARTHROPLASTY TOTAL HIP performed by Ivory Vitale MD at [facility] Subjective: Pt c/o minimal to moderate pain throughout session. Pleasant and cooperative. Social History/Disposition Lives with: Alone (12/10/22957) Assistance available: Yes (neighbor can assist as caregiver initially post d/c) (12/10/22957) Dwelling type: Multi-story home (1st floor s/u available) (12/10/22957) Entry steps: 3 (one-side rail) (12/10/22957) Inside steps: 10 - 15 (bilateral rails) (12/10/22957) Bedroom location: 2nd floor (1st floor s/u available c recliner chair) (12/10/22957) Bath location: 2nd floor full bath;1st floor powder room (shower chair, RTS, grabbars) (12/10/22957) Prior Level of Function Reported by: Patient (12/10/22957) Ambulation: Ambulatory without device (12/10/22957) Stair Mobility: With device (12/10/22957) Stair Assist with Device: 1 Handrail;2 Handrails (12/10/22957) Grooming: Independent (12/10/22957) Bathing: Independent (12/10/22957) Dressing: Independent (12/10/22957) Feeding: Independent (12/10/22957) Toileting: Independent (12/10/22957) Meal Prep: Independent (12/10/22957) Homemaking: Independent (12/10/22957) Shopping: Independent (12/10/22957) Medication Management: Independent (12/10/22957) Money Management: Independent (12/10/22957) 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[employer]) (12/10/22957) Driving: Yes (12/10/22957) Durable Medical Equipment at home: Rolling walker;Raised toilet seat;Straight cane;Shower chair;Grab bars (12/10/22957) Current Functional Status: Range of Motion Range of Motion: WFL (12/10/22957) Strength Assessment Strength Assessment: WNL (not formally tested; observed throughout functional task) (12/10/22957) Other Findings Endurance: Fair (12/10/22957) OT Transfers Sit-Stand: Contact Guard Assistance (4) (12/10/22957) Stand-Sit: Contact Guard Assistance (4) (12/10/22957) Adaptive device used: Yes, device (RW) (12/10/22957) Upper Body Dressing Upper Extremities Dressing: Set-Up Assistance (5) (12/10/22957) Lower Body Dressing Undergarment: Contact Guard Assistance (4) (12/10/22957) Pants/Skirt: Contact Guard Assistance (4) (12/10/22957) Socks: Supervision (4) (12/10/22957) Teds: Supervision (4) (12/10/22957) Adaptive Device used: director case management, sock aide, RW (12/10/22957) Home Management Functional Ambulation in Kitchen/Patient Room: Contact Guard Assistance (4) (c RW) (12/10/22957) Patient and Family Goals: to get well and to return home Assessment: Pt seen for initial OT evaluation s/p LTHR. He reports IND PLOF in ADL/IADL tasks as ptresides alone. Pt reports that he can receive assist through neighbor initially post d/c for safety. Upon evaluation, pt completed functional transfers and ambulation c RW c CGA for safety. Pt demonstrating limited fxl endurance at this time as he c/o increased fatigue and demonstrating decreased control c stand > sit fxl transfer. Pt educated on use of AE for LB dress tasks, and demonstrated ability to complete c CGA for safety when pull up/down. Pt agreeable to first floor s/u until pain decreased. Pt educated on alfie hose schedule, use of AE, safety c RW; pt with no further OT-related que stions/concerns at this time. Recommend home c assistance at this time for safety and IADL completion d/t pt's current pain levels limiting overall IND. Pt in bedside chair at end of session, bedsidetable and call martinez within reach, alarm on, all needs met. Treatment Provided: Self Group Home Management Trainin minutes Evaluation Low Complexity 20 minutes - [id number]: Patient was cooperative and pleasant during treatmentsession. Low complexity evaluation performed and decreased strength and decreased endurance deficits were identified that result in activity limitation. The patient does not have any comorbidities that affect occupational performance. There were no modifications necessary to complete the evaluation. Treatment Plan: Discontinue Occupational Therapy services Mobility Assessment (AM-PAC) - Completed Daily - Assess your patient "How much help do you currently need..." Help From Another Person Eating Meals: None (12/10/22957) Help From Another Person Taking Care of Personal Grooming: None (12/10/22957) Help From Another Person To Put On/Take Off Upper Body Clothing: None (12/10/22957) Help From Another Person To Put On/Take Off Lower Body Clothing: A little (12/10/22957) Help From Another Person Toileting: A little (12/10/22957) Help From Another Person Bathing: A little (12/10/22957) OT AM-PAC Score: 21 (12/10/22957) OT AM-PAC t-Scale Score: 44.27 (12/10/22957) Discharge Recommendations Discharge Recommendations: Home with assistance (12/10/22957) Reason for Supervision/Assistance : Needs physical assistance due to current pain level;Needs assistance with IADLs (12/10/22957) Equipment needs: (would benefit from wide RW) (12/10/22899) P.T Discharge Comments: Use assistive device;Have assistance or supervision at all times;Follow Home Exercise Program as instructed;Continue with Physical Therapy (12/10/22899) O.T Discharge Comments: Continue to use adaptive equipment to increase independence and safety withdaily activities;Use assistive equipment in the shower (12/10/22957) RAVINDER Fischer/Jermaine 12/10/2022 10:15 AM * Jaqueline Lacy, PT - 12/10/2022 9:28 AM EDTAssociated Order(s): ADULT PHYSICAL THERAPY CONSULT IP [facility] PB[facility] ORT-4607/01 PT Evaluation Remy Hillman is a/an 62 year old male. Patient Status: SORU (23 hr Surgical Overnight) Insurance: Payor: [employer] OOS Plan: [employer] OOS Product Type: *No Product type* Payor: [employer] OOS Plan: [place] Product Type: *No Product type* Patient Seen: at bedside, ortho PAC cleared patient for therapy Patient Identified By: Name, ID Band and Date PRE-AND POSTOPERATIVE DIAGNOSIS: Osteoarthritis left hip PROCEDURE: Left total hip arthroplasty (Modifier-22) INDICATIONS FOR MOD-22: The patient is obese with a BMI of 38. This made the surgical exposure moredifficult, and resulted in additional intraoperative dissection. This resulted in an increased surgical time of 30 minutes above and beyond what would be considered normal for this procedure. Patient returned to OR 12/09/22 PRE-AND POSTOPERATIVE DIAGNOSIS: Dislocated left total hip prosthesis PROCEDURE: Open reduction and headliner exchange of left total hip replacement Diagnosis: gait dysfunction, s/p R THR with revision (12/10/22899) Status of Treatment: Evaluation completed (12/10/22899) Orders: PT evaluation and treatment;OOB (12/10/22899) Weight Bearing Status: Weight bearing as tolerated;LLE (12/10/22899) Precautions: Falls (12/10/22899) PT Treatment Time Time In/Out: 847/919 (12/10/22899) Individual Time (minutes): 32 (12/10/22899) Total Treatment Time: 32 (12/10/22899) Past Medical History: Past Medical History: Diagnosis Date Anemia iron deficiency Bipolar disorder (HCC) Diabetes (HCC) DM neuropathy, type II diabetes mellitus (HCC) GERD (gastroesophageal reflux disease) Hyperlipidemia Hypertension Osteoarthritis Sleep apnea Past Surgical History: Past Surgical History: Procedure Laterality Date FOOT/TOE SURGERY NEC Right GA ARTHRP ACETBLR/PROX FEM PROSTC AGRFT/ALGRFT TOTAL HIP REPLACEMENT & PROSTHESIS Right 2021 TOTAL HIP REPLACEMENT & PROSTHESIS Left 12/09/2022 ARTHROPLASTY TOTAL HIP performed by Ivory Vitale MD at [facility] Subjective: Patient lying in bed without complaints. Feels sore. He is familiar with postop course from THR last year. Pain: 05/26 pain with mobility Social History/Disposition Lives with: Alone (12/10/22899) Assistance available: (neighbors available to help) (12/10/22899) Dwelling type: Multi-story home (12/10/22899) Entry steps: 3 (1 HR) (12/10/22899) Inside steps: 10 - 15 (12/10/22899) Bedroom location: 2nd floor (but can stay first floor initially) (12/10/22899) Bath location: 2nd floor full bath;1st floor powder room (12/10/22899) Prior Level of Function Reported by: Patient (12/10/22899) Ambulation: Ambulatory without device (12/10/22899) Grooming: Independent (12/10/22899) Bathing: Independent (12/10/22899) Dressing: Independent (12/10/22899) Feeding: Independent (12/10/22899) Toileting: Independent (12/10/22899) Meal Prep: Independent (12/10/22899) 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 Consciousness: Alert (12/10/22899) Orientation: Oriented times 4 (12/10/22899) Range of Motion Range of Motion: (R LE WFL, B DF intact, L knee WFL) (12/10/22899) Strength Assessment Strength Assessment: (R LE grossly WFL, good L quad contraction, L hip ab/add 2- /5) (12/10/22899) Bed Mobility Supine to Sit: Minimal Assistance (3) (12/10/22899) Sit to Supine: (+ cues for technique) (12/10/22899) Transfers Sit-Stand: Contact Guard Assistance (4) (cues for safe hand placement, bed elevated) (12/10/22899) Stand-Sit: Contact Guard Assistance (4) (12/10/22899) Ambulation Distance Ambulated (feet): 75 (12/10/22899) Assistive Device: Rolling walker (12/10/22899) Assist: Contact Guard Assistance (4) (+ cues for gait quality) (12/10/22899) Noted gait deviations: decreased weight shift, decreased step length, flexed posture (patient unable to fit within confines of his RW - promotes flexed posture) (12/10/22899) Patient displays swing through gait pattern. KUSBS = 2/5 Patient has neuropathy but reports no new numbness/ tingling LEs Patient and or Family Goal(s): to get well and to return home Patient/Family Education Review of Precautions: Total Hip;Safety (12/10/22899) Review of Exercises: Written Handout Provided;Pt Demonstrated Exercise (12/10/22899) Review of Home Program: Yes (12/10/22899) Extremity Exercise Supine: (B APs x 30 reps, L QS x 15 reps, GS x 15 reps, L hip ab/add x 15 reps) (12/10/22899) Cold pack applied to involved extremity at conclusion of session to decrease pain and swelling. Patient in recliner at end of session with call martinez in reach, all needs met and chair alarm activated. Assessment: IE completed. Patient is antalgic and slow with functional mobility but pain is well controlled and patient is steady. Patient demonstrates good rehab potential and will benefit from continued PT to address functional deficits listed below. Mortuary Operations Manager Goals (to be met by d/c from [facility]): Transfer sit to/ from stand with S and good safety awareness Ambulate 100 feet with RW and S to allow household mobility Negotiate 3 stairs with CG to allow return to home Demonstrate good understanding of HEP to increase ROM/ strength of operated LE Frequency: Continue with physical therapy 5-6 x/ week until goals met or discharged from facility. Treatment Provided: Gait Training 5 minutes: gait training with rolling walker Therapeutic Exercises: 17 minutes Evaluation Low Complexity 10 minutes - [id number]: Patient was pleasant and motivated during treatment session. Low complexity evaluation performed with indication of no personal factors or comorbidities that impact plan of care. Patient presents with limitations in range of motion, strength, bed mobility, transfers, gait, and safety, which will impact plan of care. These limitations will be addressedby the goals set for this patient. Treatment Plan: Bed mobility training, Transfer training, Gait training, ROM exercises, Strengthening exercises, Modalities, and patient education Mobility Assessment (AM-PAC) - Completed Daily - Assess your patient "How much help do you currently need..." Turning from your back to your side while in a flat bed without using bedrails?: A lot (12/10/22739) Moving from lying on your back to sitting on the side of a flat bed without using bedrails?: A little (12/10/22899) Moving to and from a bed to a chair (including a wheelchair)?: A little (12/10/22899) Standing up from a chair using your arms (e.g., wheelchair, or bedside chair)?: A little (12/10/22899) To walk in hospital room?: A little (12/10/22899) Climbing 3-5 steps with a railing?: A little (12/10/22899) AM-PAC Score With Stairs : 12 (12/10/22739) AM-PAC t-Scale Score: 35.33 (12/10/22739) Discharge Recommendations Discharge Recommendations: Home with assistance;Home with outpatient therapy (12/10/22899) Reason for Supervision/Assistance : Needs physical assistance;Mobile but fall risk (12/10/22899) Equipment needs: (would benefit from wide RW) (12/10/22899) P.T Discharge Comments: Use assistive device;Have assistance or supervision at all times;Follow Home Exercise Program as instructed;Continue with Physical Therapy (12/10/22899) documented in this encounter Nursing Notes * Nahomi Bello RN - 12/10/2022 1:34 PM EDT SORU PATIENT NURSING DISCHARGE Reviewed Plan of Care and Discharge Instructions with Patient. [address] [place] [address] Name: Remy Hillman Location: [address] Date: 12/10/2022 Time: 1:34 PM Date of Discharge:12/10/2022 Accompanied by: family Destination: Home Belongings Present at Discharge: yes Belongings Sent Home Prior to discharge: no FUNCTIONAL INDEPENDENCE MEASURE (FIM): (Must be completed for ALL patients on discharge) Locomotion: 3 = independence with device Transfer Mobility: 3 = independence with device PATIENT DEVICES: walker COMFORT: Pain or Discomfort: No Analgesia: no COPING: Family/Community Support Systems in place: Yes, explain: at bedside ADDITIONAL COMMENTS: Patient received postop education on bedside table for a Total Joint. Topics of education included Total hip Replacement, Dressing Changes,Orthopaedic Helpful Hints, and Compression stockings. S/S if post op complications including DVT's, PEs, constipation, and Infection. We discussed how to prevent these complications and who to report signs and symptoms to. Incision care and dressing changes were discussed. The patient has all needed medications and supplies. All other questions were answered at this time. Nahomi Bello RN 12/10/2022 1:34 PM * William Murillo RN - 12/10/2022 12:10 PM EDT Remy was visited by the Nurse Navigator today to review post op education for the Total Joint. Topics of education included application of alfie hose stockings, post-op pain control, incentive spirometry, and medications including Eliquis. Signs and Symptoms of post op complications including DVT's,PEs, constipation, nausea, bleeding, bruising, and Infection were reviewed. We discussed how to prevent these complications and who to report signs and symptoms to if any should arise. Incision care,Aquacels, and dressing changes were discussed. The patient did teach back and verbalized understanding. The patient has all needed medications and supplies. Post-op appointments needed were reviewed.All other questions were answered at this time. Silvestre had attended the Joint Class this year and again familiar with program from his THR last year.Pt. And NN discussed p.o pain management and whom to call if he has any concerns to call the [facility] office. Pt was provided with a 3XL Joint Replacement T-shirt for his participation in the Joint Program andJoint Class. * Criss Olmos RN - 12/09/2022 10:04 PM EDT Post Anesthesia Care Unit Transport Note [address] [address] Dept. Location: Remy Hillman Transported from [facility] to : [facility] Time: 2158 Care of patient transferred to: [facility] Transported via: Bed Belongings with Patient: Not Applicable Pulse : 108 Temp : 98.2 BP : 154/90 Respirations : 18 Pulse Ox : 99 O2 : RA SCDS: On and activated Verbal SBAR given to [facility] prior to patient transport * Ronak Santiago RN - 12/09/2022 4:11 PM EDT Post Anesthesia Care Unit Transport Note [address] [address] Dept. Location: Remy Hillman Transported from [facility] to : [facility] Time: 1600 [facility]: Bed Belongings with Patient: YES Pulse : 86 Temp : 97.4 BP : 116/76 Respirations : 14 Pulse Ox : 97 O2 : RA SCDS: On and activated * Ronak Santiago RN - 12/09/2022 3:50 PM EDT Verbal repoer given to Jose Leon RN and Brenda Hays LPN * Ronak Santiago RN - 12/09/2022 2:53 PM EDT Pt relayed to me as I assumed care of him that he took his benazapril this morning. Dr. Lowe aware. Suspect reason for BP in post op. documented in this encounter OR Notes * OR Surgeon - Ivory Vitale MD - 12/09/2022 8:56 PM EDT PRE-AND POSTOPERATIVE DIAGNOSIS: Dislocated left total hip prosthesis PROCEDURE: Open reduction and headliner exchange of left total hip replacement SURGEON: IVORY VITALE MD SAGGER MAKER: David Haque PA-C/Wendy Biggs PA-C The assistants during the case were crucial for patient positioning as well as holding retractors and positioning the arm during performance of the surgery. Their assistance was required for successful completion of the surgery. ANESTHESIA: Spinal FLUIDS: Crystalloid COMPLICATIONS: None Instrumentation: We did a head and liner exchange. Using a 36+4 lipped acetabular liner and a 36+1.5 ceramic femoral head. Indications for procedure: As I was making my postoperative rounds, I noticed the patient's left lower extremity was shorter than the right. He had not moved from his bed since he was taken off of the OR table so the assumption was made that his hip was manually dislocated while he was moved. A portable x-ray confirm the diagnosis. PROCEDURE: Patient was brought to the operating suite where spinal anesthesia was administered. A timeout was called identifying the patient and the operative site. The initial closure duction was undertaken and was successful however the hip was unstable in maximum external rotation. It was felt that the capsule was insufficient so at this point it was decided to proceed to an open reduction. Patient was placed on the Mcgrew table and the left hip region was prepped and draped sterilely. Surgical clips were removed and then the prior sutures were removed all the way down to the hip joint. We dislocated the hip and remove the femoral head. We removed the acetabular liner and then replaced it with a 36+4 lipped liner. The lip was placed anteriorly. It was tapped into place and secured. A 36+1.5 femoral head was then placed onto the dried trunnion and impacted. The hip was reduced. X-rays revealed an anatomic reduction and equal leg lengths. The hip was taken through range of motion in flexion and extension along with maximum internal and external rotation and it was completely stable. At this point the wound was irrigated. The capsule was closed with a running #2 Ethibond suture. Thefascial layer was closed with a running #1 Vicryl. A layered closure at the skin was undertaken. Soft sterile dressings were applied. Patient was transported to the recovery room in stable condition. * OR Surgeon - Ivory Vitale MD - 12/09/2022 1:08 PM EDT PRE-AND POSTOPERATIVE DIAGNOSIS: Osteoarthritis left hip PROCEDURE: Left total hip arthroplasty (Modifier-22) INDICATIONS FOR MOD-22: The patient is obese with a BMI of 38. This made the surgical exposure moredifficult, and resulted in additional intraoperative dissection. This resulted in an increased surgical time of 30 minutes above and beyond what would be considered normal for this procedure. SURGEON:Ivory Vitale MD ASSISTANTS: David Haque PA-C/MARTA Gipson The assistants during the case were crucial for patient positioning as well as holding retractors and the cutting guides during performance of the surgery. Their assistance was required for successful completion of the surgery. ANESTHESIA: Spinal ESTIMATED BLOOD LOSS: 400 cc FLUIDS: Crystalloid COMPLICATIONS: None INSTRUMENTATION: Depuy size 54 [place] cup, 54 x 32 Altrx PE liner, size 6 standard Tri-Lock femoral stem, 32+1 ceramic head OPERATIVE PROCEDURE: The patient was brought to the Operating Suite where appropriate anesthesia was administered. The patient was placed supine on the Mcgrew table. Both feet were placed in traction boots and hooked to the mobile spar. The contralateral hip was placed in neutral rotation, extension,abduction, and adduction to serve as a radiographic control for the operated side. The operative hip was then prepped with a ChloraPrep solution and draped sterilely. An 8 to 10 cm incision was made beginning 2 cm posteriorly and 1 cm distal to the anterior superior iliac spine, extending in a distal and slightly posterior direction to a point 2 to 3 cm anterior to the greater trochanter. Sharp di ssection was undertaken through the skin and subcutaneous tissues. The fascia griselda was incised overthe tensor in line with the skin incision. Blunt dissection around the medial aspect of the tensor within the sheath of the incised aponeurosis developed the interval between the tensor and the sartorius. Continued blunt dissection along the medial tensor in a posterior and proximal direction then allowed placement of a Cobra retractor along the superior lateral hip capsule. A Tracey retractor wasused to retract the sartorius and rectus medially, exposing the reflected head of the rectus. A periosteal elevator was placed just distal to the reflected head and was directed medially and distal to elevate the iliopsoas and rectus from the anterior capsule. The 2nd Cobra retractor was then placed on the medial hip capsule. The lateral femoral circumflex vessels were identified, clamped, cauterized, and transected. Additional distal splitting of the aponeurosis that overlaid the anterior capsule and excision of the fat pad was then undertaken. The capsulotomy was done in an L shaped fashion and the anterior and lateral flaps were tagged with suture for subsequent repair. The Cobra retractors were then repositioned inside the capsule, exposing the femoral neck. The femoral neck was then cut in situ as determined preoperatively. The capsule on the medial neck was then released to expose the lesser trochanter in the medial posterior neck. The femoral head corkscrew was used to remove the head, with care being taken to protect the tensor fascia from laceration as it was extracted. The acetabulum was then able to be observed and prepped. The femur was externally rotated to about 45 degrees and light traction was applied as necessary. Retractors were placed around the acetabulum. The labrum was excised and the prominent band of inferior capsule was transected. Reaming was then undertaken. Reaming depth, abduction angle, and anteversion was confirmed fluoroscopically and the acetabular prosthesis was inserted. Image intensification was used to verify the abduction angle andthe anteversion, as well as the final seating of the prosthesis. Screws in the acetabular shell were used as necessary. The shell was then irrigated and dried and the liner was placed and impacted. A femoral hook was then placed just distal to the vastus ridge and around the posterior femur. The femur was then externally rotated. The hip was hyperextended and adducted. The femur was brought outinto the wound and the hook was placed on the table dell to help deliver the proximal femur anteriorly. Retractors were placed around the proximal femur and the lateral capsular flap was detached from the base of the neck in anterior to posterior direction, facilitating observation of the medial greater trochanter and enhancing femoral mobility. Any lateral neck remnant was excised with a rongeurat this point. Broaching was then accomplished and continued to the size indicated by preoperative templating and also by feel and insertion depth. This was also verified fluoroscopically. The calcarplaner was then used. A trial reduction was done once broaching was complete. Leg length and offsetdetermination were done with the use of an image intensifier, using the contralateral hip for compar ángel. Once the trial components were chosen, the hook was replaced around the posterior femur. Traction was applied and the hip was dislocated. Trial components were removed. The femoral prosthesis was inserted and the hip was then reduced. Final fluoroscopic radiographs were taken at this point. Soft tis calvin tension was assessed. The hip was placed in maximal external rotation with no anterior instability. The wound was then checked for bleeding. The wound was irrigated copiously in a pulse lavage fashion. The anterior and lateral capsular sutures were tied. Additional capsular closure was done with nonabsorbable interrupted sutures. The fascia griselda was closed with a running suture. A layered closure out to the skin was undertaken. Soft sterile dressings were applied. The patient was awakened and transported to the Recovery Room in stable condition. There were no complications. All sponge andinstrument counts were correct. documented in this encounter Miscellaneous Notes * Ancillary Progress Note - CJ Berman - 12/10/2022 2:43 PM EDT [facility] ORT-[id number]/01 The following coordination of care and discharge plan has been coordinated with the care team, patient, family and/or caregiver according to the patients needs and preferences. Discharge Discharge Was Caregiver/Family/Facility contacted regarding discharge: Yes (12/10/22 1334) Home Medical Care - Discharged on 12/10/2022 Admission date: 12/09/2022 - Discharge disposition: Home - Self Care No services have been selected for the patient. Narrative: DC TO HOME. PT HAS SUPPORT AFTER DC, RW AND IS AWARE OF SCHEDULED OUTPT THERAPY APT. NO DC NEEDS * Ancillary Progress Note - Jaqueline Lacy, PT - 12/10/2022 1:51 PM EDT [facility] ORT-[id number]/01 PT Progress Note Remy Hillman is a/an 62 year old male. Patient Status: SORU (23 hr Surgical Overnight) Insurance: Payor: [employer] OOS Plan: [facility] OOS Product Type: *No Product type* Payor: [employer] OOS Plan: [place] Product Type: *No Product type* Patient Identified By: Name, ID Band and Date General: Diagnosis: gait dysfunction, s/p R THR with revision (12/10/22 1300) Status of Treatment: Treatment completed (12/10/221299) Orders: PT evaluation and treatment;OOB (12/10/22 09) Weight Bearing Status: Weight bearing as tolerated;LLE (12/10/22 1300) Precautions: Falls (12/10/22 09) PT Treatment Time Time In/Out: 1308/1330 (12/10/22 1300) Individual Time (minutes): 22 (12/10/221299) Total Treatment Time: 22 (12/10/221299) Subjective: Patient offers no new complaints. Reports 4/10 pain with mobility. He has no questions/concerns regarding d/c home. "I've been through this before". Observations: Transfers: Sit-Stand: Contact Guard Assistance (4) (+ cues for hand placement) (10/25/23 1300) Stand-Sit: Contact Guard Assistance (4) (+ cues for safe hand placement, uncontrolled descent) (12/10/221299) Ambulation: Distance Ambulated (feet): 100 (12/10/221299) Assistive Device: Rolling walker (12/10/221299) Assist: Contact Guard Assistance (4);Supervision (4) (+ cues for gait quality) (12/10/221299) Noted gait deviations: decreased weight shift, decreased step length (12/10/221299) Displays swing through gait pattern. Stair Climbing: Stair Climbing (number of steps): 3 (step to gait pattern) (12/10/221299) Stair climbing steps/LOF: Rail on left;Contact Guard Assistance (4) (SPC, cues for sequencing) (12/10/221299) Extremity Exercise Sitting: (B APs x 30 reps, L QS x 15 reps, GS x 15 reps, L hip ab/add x 15 reps, L LAQ x 10 reps, Lsupine heel slides x 10 reps) (12/10/221299) Patient education provided including: safety techniques for transfers and mobility, hourly bilateral ankle pumps, frequent short distance mobility with initial assist for balance and safety, use of CP, HEP, car transfer video, and sleeping positions. Patient referred to patient guidebook to review written and illustrated educational material. Cold pack applied to involved extremity at conclusion of session to decrease pain and swelling. Patient in recliner at end of session with call martinez in reach, all needs met and chair alarm activated. Assessment: Patient is steady but antalgic with functional mobility. He demonstrates good understanding of HEP and has OPT scheduled. He has no questions/ concerns regarding d/c home. Treatment Provided: Gait Training 5 minutes: gait training with rolling walker stair training Therapeutic Exercises: 17 minutes Patient/Family Education Review of Precautions: Total Hip;Safety (12/10/221299) Review of Exercises: Written Handout Provided;Pt Demonstrated Exercise (12/10/221299) Review of Home Program: Yes (12/10/221299) Barriers to learning: None (12/10/22957) Method of Education: Verbalized to patient (12/10/22957) Plan: Discontinue acute therapy services, continue with OPT. * Pt Handout (not on AVS) - Wendy Shaffer, [facility] - 12/08/2022 9:26 AM EDT Images from the original note were not included. [id number] Preventing a Surgical Site Infection A risk of any surgery is an infection at the surgical site. The surgical site is a cut the surgeon makes in the skin to do the surgery. Surgical site infections can range in type. It may be a minor skin infection. Or it may be severe and include tissue under the skin or other organs. In some cases,a severe infection can cause . This sheet tells you: About surgical site infections What hospitals do to prevent them How they?re treated if they do occur What you can do to prevent an infection Hand washing reduces the risk of infection. What causes a surgical site infection? Germs are everywhere. They?re on your skin, in the air, and on things you touch. Many germs are good. Some are harmful. Surgical site infections occur when harmful germs enter your body through the incision in your skin. Some infections are caused by germs that are in the air or on objects. But most are caused by germs found on and in your own body. Who is at risk for a surgical site infection? Anyone can have a surgical site infection. Your risk is higher if you: Are an older adult Have a weak immune system Have other health conditions such as diabetes Take certain medicines, such as steroids Are a smoker Have certain types of surgery, such as abdominal surgery Have poor nutrition Are very overweight Have a surgery that lasts longer than 2 hours What are the symptoms of a surgical site infection? An infection often shows up as skin redness, pain, and swelling around the incision that gets worse. Later a cloudy or greenish-yellow fluid may come from the incision. The fluid may smell bad. The incision may pull apart or open up. You are likely to have a fever and may feel very ill. Symptoms can appear any time. They may happen from hours to weeks after surgery. Implants such as an artificial knee or hip can become infected at any time after the surgery. How is a surgical site infection treated? A surgical site infection is treated with antibiotics. The type of medicine you get will depend on what may be causing the infection. Most serious wound infections need wound care. In some cases, surgery may be needed on the infected wound. An infected skin wound may be reopened and cleaned. A deep wound may need to be packed with gauze. The gauze is changed often until the wound starts to heal from the inside out. Your healthcare provider will decide the best way to treat your infection. If an infection occurs where an implant is placed, the implant may be removed. If you have an infection deeper in your body, you may need surgery to treat it. What hospitals do to prevent surgical site infections Many hospitals take these steps to help prevent surgical site infections: Handwashing. Before the surgery, your surgeon and all surgery staff scrub their hands and arms with an antiseptic soap. Clean skin. The site where your incision is made is carefully cleaned with an antiseptic solution. Sterile clothing and drapes. The surgical team wears medical uniforms. These are known as scrub suits. They wear long-sleeved surgical gowns, masks, caps, shoe covers, and sterile gloves. Your body is fully covered with a large sterile sheet (sterile drape). There is an opening in the sheet where the incision is made. Clean air. Operating rooms have special air filters. They use positive pressure airflow to prevent unfiltered air from entering the room. Careful use of antibiotics. Antibiotics are given no more than 60 minutes before the incision ismade. They are generally stopped within 24 hours after surgery. This depends on the type of surgery. This helps kill germs but prevents problems that can occur when antibiotics are taken longer. Controlled blood sugar levels. Your blood sugar level may rise. This can be because of the stress of the surgery. Your blood sugar level is watched closely to make sure it stays within a normal range. High blood sugar delays wound healing. This increases the risk of infection. Controlled body temperature. A nxrpl-aiuq-ytwvce temperature during or after surgery prevents oxygen from reaching the wound. This makes it harder for your body to fight infection. Hospitals may warm IV fluids, increase the temperature in the operating room, and provide warm-air blankets. Safe hair removal. Any hair that must be removed is clipped right before the incision, not shaved with a razor. This prevents tiny nicks and cuts where germs can enter. Wound care. After surgery, a closed wound is covered with a sterile dressing for 1 to 2 days. Open wounds are packed with sterile gauze and covered with a sterile dressing. What you can do to prevent a surgical site infection Ask questions. Learn what your hospital is doing to prevent infection. If instructed, shower or bathe with plain soap the night before and the day of your surgery. Follow all instructions you're given. You may be asked to use a special cleanser that you don?t rinse off. If you smoke, stop as long as possible before and after the surgery. Ask your healthcare provider about ways to quit. Take antibiotics only when your healthcare provider tells you to. Using antibiotics when they?renot needed can create germs that are harder to kill. Finish the entire prescription of your antibiotics. Take them even if you feel better. Ask healthcare workers to clean their hands with plain soap and water or with an alcohol-based hand mat maker before and after caring for you. Don?t be afraid to remind them. After surgery, eat healthy foods. Care for your incision as directed by your healthcare team. When to call your healthcare provider Call your healthcare provider if you have any of these: Pain at the surgical site that gets worse A red streak, worse redness, or puffiness near the incision Yellowish, cloudy, or bad-smelling fluid from the incision Stitches that dissolve before the wound heals Fever of 100.4 F ( 38C ) or higher, or as advised by your healthcare provider A tired feeling that doesn?t go away Last Reviewed Date: 03/19/202119994301-4022 [employer]. All rights reserved. This information is not intended as a substitute for professional medical care. Always follow your healthcare professional's instructions. * Pt Handout (not on AVS) - OMEGA Piedra - 12/08/2022 9:26 AM EDT [id number] Pulmonary Embolism (PE) A pulmonary embolus is most often due to a blood clot that develops in a deep vein of the leg (deepvein thrombosis). If that clot breaks loose and travels to the lung, it's called a pulmonary embolism (PE). This can cut off blood flow in the lungs. A blood clot in the lungs is a medical emergency and may cause . Healthcare providers use the term venous thromboembolism (VTE) to describe these 2 conditions: deepvein thrombosis and pulmonary embolism. They use the term VTE because the 2 conditions are very closely linked. And because their prevention and treatment are also closely linked. A pulmonary embolism occurs when a blood clot forms in a vein and travels to the lungs. How is pulmonary embolism diagnosed? Your healthcare provider examines you and asks about your symptoms and health history. You may alsohave one or more of the following: Blood tests to check for blood clotting or other problems Imaging tests to look for clots in the veins or lung Electrocardiography (ECG) to test how well the heart is working How is pulmonary embolism treated? Blood-thinning medicines (anticoagulants). These medicines thin the blood. They may be given as a pill, as an injection, or through a tube into a vein (intravenous or IV). Blood thinners help prevent more blood clots from forming. They also help to prevent an existing clot from getting larger. Thrombolysis. Thrombolytic medicines are used to quickly dissolve a blood clot. A long, narrow tube (catheter) is used to deliver medicine directly to the clot. Thrombolytic medicines increase therisk of bleeding. So they are used very carefully. Inferior vena cava (IVC) filter surgery. The vena cava is the body?s largest vein. It carries blood from the body to the heart. A small filter traps blood clots in the lower body and prevents themfrom traveling to the lungs. The filter is inserted into the vein through a catheter. The filter may be used if blood thinners can't be taken or if they don't work. Pulmonary embolectomy. This is a procedure to remove a blood clot in the lungs. It may be done with surgery or with a catheter inserted in the body. It may be done when other treatments aren't safe or don't work. What are the long-term concerns? With treatment, blood clots are often dissolved or removed. Some treatments can even help prevent future clots. But having a PE can put you at risk for another life-threatening blood clot. So, you will likely need to take anticoagulants to help keep blood clots from forming again. You may need to take this medicine for months or years. You may also need to make lifestyle changes. This may include getting more active and eating healthier. You may need to wear elastic (compression) stockings and take breaks on long trips. Call 911 Call 911 or get emergency help if you have: Heavy or uncontrolled bleeding Symptoms of a blood clot that has traveled to the lungs, including: o Chest pain o Trouble breathing o Coughing (may cough up blood) o Fainting o Fast heartbeat o Sweating When to call your healthcare provider Call your healthcare provider if you have swelling or pain in your leg, arm, or other area. These are symptoms of a blood clot. You may have bleeding if you take medicine to help prevent blood clots. Call your provider if you have symptoms of bleeding. This includes: Blood in your pee Bleeding with your poop (stool or bowel movements) Bleeding from the nose, gums, vagina, or a cut Last Reviewed Date: 10/17/202119990666-5303 [employer]. All rights reserved. This information is not intended as a substitute for professional medical care. Always follow your healthcare professional's instructions. * Pt Handout (not on AVS) - OMEGA Piedra - 12/08/2022 9:26 AM EDT Images from the original note were not included. [id number] Putting on Compression Stockings Elastic compression stockings are prescribed to treat many vein problems. Wearing them may be the most important thing you do to manage your symptoms. The stockings fit tightly around your ankle, gradually reducing in pressure as they go up your legs. This helps keep blood flowing to your heart. Asa result, swelling is reduced. Your healthcare provider will prescribe stockings at a safe pressurefor you. They will also tell you how often to wear and remove the stockings. Follow these instructions closely. Also, don't buy or wear compression stockings without first seeing your healthcare provider. Tips for wear and care To wear stockings safely and to get the most benefit: Wear the length prescribed by your healthcare provider. Pull them to the designated height and no farther. Don?t let them bunch at the top. This can restrict blood flow and increase swelling. Wear the stockings for the amount of time your healthcare provider recommends. Replace them whenthey start to feel loose. This will likely be every 3 to 6 months. Remove them as your healthcare provider directs. When removed, wash your legs. Then check your legs and feet for sores. Call your healthcare provider if you find a sore. Don?t put the stockings back on unless your healthcare provider directs you to. Wash the stockings as instructed. They may need to be handwashed. Turn the stocking inside-out, then fit it over your toes and heel. Roll the stocking up your leg. Once stockings are on, make sure the top of the stocking is about two fingers' width below the crease of the knee (or the groin if you wear thigh-high stockings). Use equipment, such as a stocking jenny, or wear rubber gloves to make it easier to put on compression stockings. Last Reviewed Date: 08/16/202119991570-5262 [employer]. All rights reserved. This information is not intended as a substitute for professional medical care. Always follow your healthcare professional's instructions. * Pt Handout (not on AVS) - OMEGA Piedra - 12/08/2022 9:26 AM EDT [id number] T.E.D. Stockings T.E.D. stockings are used to help stop blood clots from forming in the deep veins of your legs. T.E.D. stands for thrombo-embolic deterrent hose. They help prevent blood clots if you are immobile, asyou might be after certain types of surgeries. They look like support hose. But they are specially designed to put more pressure on your foot and ankle and less pressure at the upper end of the stocking. This keeps blood from pooling in your lower legs. When blood flow slows down, clots can form. The pressure from T.E.D. stockings helps blood flow in the deep leg veins. This reduces risk for clots when you also take anti-coagulation medicine. It's important that you have the correct size of the T.E.D. stockings for them to work. Your healthcare provider will give you the size you need. If you are having trouble putting your stockings on by yourself, ask your healthcare provider or supply store about using a "sock aid." Last Reviewed Date: 01/16/202219990502-1874 [employer]. All rights reserved. This information is not intended as a substitute for professional medical care. Always follow your healthcare professional's instructions. * Pt Handout (not on AVS) - OMEGA Piedra - 12/08/2022 9:26 AM EDT Images from the original note were not included. [id number] Apixaban Oral Tablet Brands: Eliquis Uses This medicine is used for the following purposes: blood disorder prevent blood clots treatment of blood clots blood clot Instructions This medicine may be taken with or without food. This medicine will work best if you take it at about the same time every day. Store at room temperature away from heat, light, and moisture. Do not keep in the bathroom. It is important that you keep taking each dose of this medicine on time even if you are feeling well. If you forget to take a dose on time, take it as soon as you remember. If it is almost time for thenext dose, do not take the missed dose. Return to your normal schedule. Do not take 2 doses at one time. Drug interactions can change how medicines work or increase risk for side effects. Tell your healthcare providers about all medicines taken. Include prescription and mbjc-hfc-vkuhait medicines, vitamins, and herbal medicines. Speak with your doctor or pharmacist before starting or stopping any medicine. Talk to your doctor before taking other medicines, including aspirins and ibuprofen containing products. Speak to your doctor about which medicines are safe to use while you are on this medicine. It is very important that you follow your doctor's instructions for all blood tests. Cautions This medicine may cause serious bleeding problems in patients taking blood thinner medications. Follow your doctor's instructions carefully to monitor your blood lab tests if you are on blood thinners. Tell your doctor and pharmacist if you ever had an allergic reaction to a medicine. This medicine may cause serious bleeding from the stomach or bowels. Stop this medicine and call your doctor immediately if you see any signs of bleeding. Bleeding can cause pain in the stomach, vomiting up liquid that looks like coffee grounds, and red or dark tarry stools. There is an increased risk of bleeding while on this medicine, please tell your doctor or nurse if you notice any excessive bleeding or bruising. Do not use the medication any more than instructed. Please check with your doctor before drinking alcohol while on this medicine. Do not breastfeed while on this medicine. This medicine can hurt a new baby in the womb. If you become while on this medicine, tell your doctor immediately. Your doctor may switch you to a different medicine. Do not take [place] wort while on this medicine. Do not share this medicine with anyone who has not been prescribed this medicine. Some patients have serious side effects from this medicine. Ask your pharmacist to show you the information from the Food and Drug Administration (FDA) and discuss it with you. Always refill this medicine before it runs out. Side Effects The following is a list of some common side effects from this medicine. Please speak with your doctor about what you should do if you experience these or other side effects. nosebleeds Call your doctor or get medical help right away if you notice any of these more serious side effects: bleeding or bruising coughing up blood or vomit that looks like coffee grounds fainting numbness or tingling in hands and feet severe or persistent headache sudden leg pain, swelling, warmth or redness loss of movement anywhere on the body shortness of breath bloody or dark, tarry stools symptoms of stroke (such as one-sided weakness, slurred speech, confusion) difficulty swallowing unusual or unexplained tiredness or weakness blood in urine blurring or changes of vision A few people may have an allergic reaction to this medicine. Symptoms can include difficulty breathing, skin rash, itching, swelling, or severe dizziness. If you notice any of these symptoms, seek medical help quickly. Extra Please speak with your doctor, nurse, or pharmacist if you have any questions about this medicine. [email or web address] IMPORTANT NOTE: This document tells you briefly how to take your medicine, but it does not tell youall there is to know about it. Your doctor or pharmacist may give you other documents about your medicine. Please talk to them if you have any questions. Always follow their advice. There is a more complete description of this medicine available in [place]. Scan this code on your smartphone or tablet or use the web address below. You can also ask your pharmacist for a printout. If you have any questions, please ask your pharmacist. The display and use of this drug information is subject to Terms of Use. Copyright(c) 2022 [employer]. 5152-6928 [employer]. All rights reserved. This information is not intended as a substitute for professional medical care. Always follow your healthcare professional's instructions. * Pt Handout (not on AVS) - OMEGA Piedra - 12/08/2022 9:26 AM EDT [id number] Deep Vein Thrombosis (DVT) Deep vein thrombosis (DVT) occurs when a blood clot (thrombus) forms in a deep vein. This happens most often in the leg. It can also happen in the arms or other parts of the body. A part of the clot called an embolus can break off and travel to the lungs. When this happens, it?s called a pulmonary embolism (PE). PE is a medical emergency. It can cut off blood flow and lead to . Both DVT and PE are closely related. Together, they are often referred to by the term venous thromboembolism (VTE). Risk factors for DVT Anything that slows blood flow, injures the lining of a vein, or increases blood clotting can make you more prone to having DVT. This includes the following: Long periods without movement (such as when sitting for many hours at a time or when recovering from major surgery or illness) Estrogen (female hormone) therapy, such as hormone replacement therapy (HRT) or control pills Fractured hip or leg Major surgery or joint replacement Major trauma or spinal cord injury Cancer Family history Excess weight or obesity Smoking Older age Past history of a DVT Inherited clotting disorders Symptoms DVT does not always cause symptoms. When symptoms do occur, they may appear around the site of the DVT, such as in the leg. Possible symptoms include: Swelling Pain Warmth Redness Tenderness Home care You were likely prescribed blood thinners (anticoagulants). They may be given as pills (oral) orshots (injections). Follow all instructions when using these medicines. Note: Don't take blood thinners with other medicines, herbal remedies, or supplements without talking to your provider first. Certain medicines or products can affect how blood thinners work. Follow your provider?s instructions about activity and rest. If support or compression stockings are prescribed, wear them as directed. These may help improve blood flow in the legs. When sitting or lying down, move your ankles, toes and knees often. This may also help improve blood flow in the legs. Follow-up care Follow up with your healthcare provider, or as advised. If imaging tests were done, they may need further review by a doctor. You will be told of any new findings that may affect your care. When to get medical advice Call your healthcare provider right away if any of these occur: New or increased swelling, pain, soreness, warmth, or redness, in the leg, arm, or other area Blood in the urine Bleeding with bowel movements Call 911 Call 911 if any of these occur: Bleeding from the nose, gums, a cut, or vagina Heavy or uncontrolled bleeding Trouble breathing Chest pain or discomfort that worsens with deep breathing or coughing Coughing (may cough up blood) Fast heartbeat Sweating Anxiety Lightheadedness, dizziness, or fainting Last Reviewed Date: 02/16/202119990330-4729 [employer]. All rights reserved. This information is not intended as a substitute for professional medical care. Always follow your healthcare professional's instructions. * Pt Handout (not on AVS) - OMEGA Piedra - 12/08/2022 9:26 AM EDT Images from the original note were not included. [id number] Managing Post-Op Pain at Home Pain is expected after surgery. Know that you have a right to have this pain controlled. Managing pain helps you recover faster. Less pain means you can be active sooner. It also means less stress onthe body and mind, which will help your body heal. When you go home after surgery, including same-day surgery, you will take charge of your pain management. What is post-op pain? Pain after surgery (post-op pain) is normal. How much pain you feel depends on the surgery. Your use of pain medicines and your sensitivity to pain are also factors. Each person feels pain differently. So try not to compare your pain with someone else?s. Your healthcare team will need to know how you are feeling. Be honest. If you are in pain, say so. Measuring your pain A pain scale helps you rate pain intensity (how strong you feel the pain is). On the scale, 0 meansno pain, and 10 is the worst pain possible. Pain scales are not used to compare your pain with another person's pain. A pain scale is used only to measure your pain and how it changes for you. You should rate your pain every few hours. You may feel some pain even with medicines. It's important to tell your healthcare provider if medicines don't reduce the pain. Be sure to mention if the pain suddenly increases or changes. Your recovery If you have had same-day surgery, you may feel groggy or tired from the medicines given during surgery for your first hours at home. As pain management methods used during surgery wear off, pain may increase. So be sure not to skip a dose of prescribed medicine. In fact, set an alarm or have someone remind you when it?s time to take your medicine. During this time, try to rest, even if you feel pretty good. Within the first 24 hours, a nurse or other healthcare provider is likely to call and ask how you?re doing. Medicines for pain Medicines can help to block pain, limit swelling, and control related problems. You may be given more than 1 medicine to treat your pain. Medicines may be changed as you feel better, or if they causeside effects. Pain medicine can be given in several ways: By injection By mouth As a patch, cream, or ointment As a suppository Medicines What they do Possible side effects Non-steroidal anti-inflammatory drugs (NSAIDs) Reduce mild to moderate pain. They also help reduce swelling. Nausea, stomach and digestive problems, and kidney and liver problems. Some NSAIDs may increase the risk for cardiovascular disease in some people. Opioids (morphine and similar medicines often called narcotics) Reduce moderate to severe pain Nausea, vomiting, itching, drowsiness, constipation, slowed or shallow breathing Other pain relievers (analgesics) Reduce mild to severe pain Constipation, nausea, dizziness, drowsiness, kidney and liver problems Seizure medicines (anticonvulsants) Manage nerve-related pain Drowsiness, dizziness, liver problems Medicines for depression (antidepressants) Manage chronic pain Dry mouth, drowsiness, dizziness, constipation Nonmedicine pain relief Medicines are not the only way to manage pain after surgery. You can use ice to help reduce swelling and pain. Use a cold pack or bag of ice cubes wrapped in a thin cloth. Never put ice directly on your skin. Use the ice for up to 20 minutes at a time every 3 to 4 hours. You can also reduce swelling and pain by keeping the operated area above the level of your heart ifyou can. This helps blood and other fluids drain from the area. You can also use relaxation to reduce pain. Try these methods: Visualization or guided imagery. You picture yourself in a quiet, peaceful place to help take your mind off the pain. Progressive body relaxation. Starting at your feet, you clench and release your muscles. Work upyour body slowly until you reach your neck and face. Deep breathing. You breathe in deeply and hold your breath for a few seconds. Then exhale slowlyto help relax your body. Tips for controlling pain Give pain medicine time to work. Most pain relievers taken by mouth need at least 20 to 30 minutes to take effect. They may not reach their maximum effect for close to an hour. Take pain medicine at regular times as directed. Don?t wait until the pain gets bad to take it. Get plenty of rest. Taking your medicine at night may help you get a good night?s rest. If pain lessens, try taking your medicine less often or in smaller doses. Safety tips for taking pain medicines If you are worried about becoming addicted or have a history of substance abuse, talk with your healthcare provider before surgery. An open discussion can protect you and make sure that effective pain management strategies are used. Let your provider know all of the medicines you're taking. Pain medicines can be dangerous when used with other medicines. For example, don't take opioids with benzodiazepines, such as alprazolam or lorazepam. Doing so can cause serious health problems. These include extreme sleepiness, slowed breathing, and . Ask your pharmacist if you need to take the medicine with food or milk to avoid an upset stomach. Don?t break, crush, or cut in half any long-acting medicines. This could be harmful. Don?t take more medicine than directed. If your pain isn?t relieved, call your healthcare provider. Try to time your medicine so that you take it before starting an activity, such as dressing or sitting at the table for dinner. Constipation is a common side effect with some pain medicines. Eating fruit, vegetables, and other foods high in fiber may help. Also drink plenty of fluids. Your healthcare provider may recommenda stool softener. Don?t drink alcohol while you are taking pain medicine. This can make you dizzy and slow your breathing. It can even be fatal. Don?t drive if you are taking opioid medicines. When to call your healthcare provider Call your healthcare provider if any of these occur: Your pain is not relieved or if it gets worse You can't take your pain medicines as prescribed You have severe side effects like dizziness, confusion, or severe constipation Call 911 Call 911 right away if you have any of these: Breathing problems Trouble waking up Last Reviewed Date: 01/16/202219997212-5324 [employer]. All rights reserved. This information is not intended as a substitute for professional medical care. Always follow your healthcare professional's instructions. documented in this encounter Plan of Treatment Upcoming Encounters Date Type Department Care Team (Late st Contact Info) Description 12/12/2022 10:30 AM EDT [facility], [address] [address] Criss Lewis, PT [address] [place] [address] 12/16/2022 9:45 AM EDT [facility], [address] [address] Criss Lewis, PT [address] [place] [address] 12/18/2022 10:30 AM EDT [facility], [address] [address] Criss Lewis, PT [address] [place] [address] 12/22/2022 10:30 AM EST [facility], [address] [address] Elda Espinosa, [address] [address] 12/23/2022 2:30 PM EST Office Visit Orthopaedics [facility] [address] [address] [facility] [address] [place] [id number] Tu Haque PA-C [address] [facility] [address] [place] [address] 12/24/2022 9:45 AM EST [facility], [address] [address] Elda Espinosa, [address] [address] 12/26/2022 9:45 AM EST [facility], [address] [address] Elda Espinosa, [address] [address] Pending Results Name Type Priority Associated Diagnoses Date /Time SURGICAL PATHOLOGY ([facility]) Pathology Routine Primary osteoarthritis of left hip Generalized pain Encounter for therapeutic drug monitoring Other specified pre-operative examination 12/09/2022 1:06 PM EDT Scheduled Orders Name Type Priority Associated Diagnoses Orde r Schedule SURGICAL PATHOLOGY ([facility]) Pathology Routine Primary osteoarthritis of left hip Generalized pain Encounter for therapeutic drug monitoring Other specified pre-operative examination Release Upon Ordering for 1 Occurrences starting 12/09/2022, 1 completed Scheduled Referrals Name Type Priority Associated Diagnoses Orde r Schedule PHYSICAL THERAPY REFERRAL OP Referral Within 10 days (routine) Primary osteoarthritis of left hip Dislocation of hip joint prosthesis, initial encounter Ordered: 12/10/2022 Health Maintenance Due Date Last Done Comments DISCUSS TOBACCO CESSATION (REFER TO SMARTSET #0284) 1960 COVID-19 Vaccine (#1) 1960 Pneumococcal Vaccine: [...] this encounter Medical Devices Implanted Type Area Composition Roll Maker And Cutter Device Identifier Shelf Expiration Date Model / Serial / Lot Head Feml 36mm +1.5mm 01/29 Tpr Hip Blx D Art/Rafat Strl Lf - [id number] Implanted:Qty: 1 on 12/09/2022 by Ivory Vitale MD at OR [facility] Left: Hip ECHJ&J DEPUY 05/17/2027 [id number] / / [id number] documented as of this encounter Procedures Procedure Name Priority Date/Time Associated Diagnosis Comments GLUCOSE METER, POINT OF CARE RAMON 12/10/2022 11:22 AM EDT GLUCOSE METER, POINT OF CARE RAMON 12/10/2022 7:14 AM EDT BASIC METABOLIC PANEL Routine 12/10/2022 6:24 AM EDT CBC Routine 12/10/2022 6:24 AM EDT GLUCOSE METER, POINT OF CARE RAMON 12/09/2022 9:23 PM EDT XR INTRA-OP C-ARM CASE Routine 12/09/2022 9:04 PM EDT GLUCOSE METER, POINT OF CARE RAMON 12/09/2022 6:39 PM EDT XR HIP 1 VIEW INCLUDING AP PELVIS STAT 12/09/2022 5:47 PM EDT GLUCOSE METER, POINT OF CARE [facility] 12/09/2022 5:00 PM EDT GLUCOSE METER, POINT OF CARE [facility] 12/09/2022 1:54 PM EDT TOTAL HIP REPLACEMENT & PROSTHESIS 12/09/2022 11:06 AM EDT Primary osteoarthritis of left hip Generalized pain Encounter for therapeutic drug monitoring Other specified pre-operative examination Special Needs Eliquis AFTER going home NOT before procedure. Pt will drive himself in and have someone else get his car. Will have name and number of public transit bus driver to parts picker in morning, probably son Kush will pick him up GLUCOSE METER, POINT OF CARE [facility] 12/09/2022 8:30 AM EDT documented in this encounter Results * (ABNORMAL) GLUCOSE METER, POINT OF CARE (12/10/2022 11:22 AM EDT) Glucose POC STAT Strip 198(H) 70 - 110 mg/dL 12/10/2022 11:59 AM EDT LABORATORY [facility] Blood Capillary blood specimen / Unknown 12/10/2022 11:22 AM EDT 12/10/2022 11:59 AM EDT Ivory Vitale MD LAB POINT OF CARE TEST DOCKED DEVICE UNSOLICITED RESULTS Performing Organization Address [facility] Co de Phone Number LABORATORY [address] * (ABNORMAL) GLUCOSE METER, POINT OF CARE (12/10/2022 7:14 AM EDT) [facility] Glucose POC STAT Strip 135(H) 70 - 110 mg/dL 12/10/2022 7:38 AM EDT LABORATORY [facility] Blood Capillary blood specimen / Unknown 12/10/2022 7:14 AM EDT 12/10/2022 7:38 AM EDT Ivory Vitale MD LAB POINT OF CARE TEST DOCKED DEVICE UNSOLICITED RESULTS Performing Organization Address [facility] de Phone Number LABORATORY [address] * (ABNORMAL) CBC (12/10/2022 6:24 AM EDT) [facility] White Blood Cell Count 9.1 4.0 - 10.5 K/uL 12/10/2022 6:41 AM EDT LABORATORY [facility] Red Blood Cell Count 3.35(L) 4.70 - 6.00 12/10/2022 6:41 AM EDT LABORATORY [facility] Hemoglobin 9.7(L) 13.5 - 18 g/dL 12/10/2022 6:41 AM EDT LABORATORY [facility] Hematocrit 28.4(L) 42 - 52 % 12/10/2022 6:41 AM EDT LABORATORY [facility] MCV 84.9 78.0 - 100.0 fl 12/10/2022 6:41 AM EDT LABORATORY [facility] MCH 28.9 27.0 - 31.0 pg 12/10/2022 6:41 AM EDT LABORATORY [facility] MCHC 34.1 32.5 - 36.0 g/dL 12/10/2022 6:41 AM EDT LABORATORY [facility] RDW 14.5(H) 11.5 - 14.0 % 12/10/2022 6:41 AM EDT LABORATORY [facility] Platelet Count 191 150 - 450 K/uL 12/10/2022 6:41 AM EDT LABORATORY [facility] MPV 7.9 6.5 - 9.5 fL 12/10/2022 6:41 AM EDT LABORATORY [facility] Blood Venous blood specimen / Unknown Venipuncture / Unknown 12/10/2022 6:24 AM EDT 12/10/2022 6:35 AM EDT Tu Haque PA-C LAB BLOOD ORDER VIN LABORATORY [facility] [address] * (ABNORMAL) BASIC METABOLIC PANEL (12/10/2022 6:24 AM EDT) Sodium 134(L) 135 - 146 mmol/L 12/10/2022 7:01 AM EDT LABORATORY [facility] Potassium 3.9 3.5 - 5.1 mmol/L 12/10/2022 7:01 AM EDT LABORATORY [facility] Chloride 100 98 - 107 mmol/L 12/10/2022 7:01 AM EDT LABORATORY [facility] CO2 - ECH 25 22 - 32 mmol/L 12/10/2022 7:01 AM EDT LABORATORY [facility] Anion Gap 13 10 - 20 mmol/L 12/10/2022 7:01 AM EDT LABORATORY [facility] BUN - ECH 17 6 - 20 mg/dL 12/10/2022 7:01 AM EDT LABORATORY [facility] Creatinine 0.9 0.7 - 1.2 mg/dL 12/10/2022 7:01 AM EDT LABORATORY [facility] Estimated Glomerular Filtration Rate 96 12/10/2022 7:01 AM EDT LABORATORY [facility] BUN/Creatinine Ratio 18.9 12.0 - 20.0 12/10/2022 7:01 AM EDT LABORATORY [facility] Glucose 153(H) 70 - 120 mg/dL 12/10/2022 7:01 AM EDT LABORATORY [facility] Calcium 8.0(L) 8.4 - 10.2 mg/dL 12/10/2022 7:01 AM EDT LABORATORY [facility] Blood Venous blood specimen / Unknown Venipuncture / Unknown 12/10/2022 6:24 AM EDT 12/10/2022 6:35 AM EDT Tu Haque PA-C LAB BLOOD ORDER [facility]IN LABORATORY [address] * (ABNORMAL) GLUCOSE METER, POINT OF CARE (12/09/2022 9:23 PM EDT) Glucose POC STAT Strip 154(H) 70 - 110 mg/dL 12/09/2022 9:35 PM EDT LABORATORY [facility] Blood Capillary blood specimen / Unknown 12/09/2022 9:23 PM EDT 12/09/2022 9:35 PM EDT Ivory Vitale MD LAB POINT OF CARE TEST DOCKED DEVICE UNSOLICITED RESULTS Performing Organization Address [facility] Co de Phone Number LABORATORY [address] * XR INTRA-OP C-ARM CASE (12/09/2022 9:04 PM EDT) Narrative Scheduling, Silent - 12/09/2022 9:04 PM EDT This procedure will not be read by a Radiologist. Please see operative note. Ivory Vitale MD RADIOLOGY (RAD GEN ERAL) * (ABNORMAL) GLUCOSE METER, POINT OF CARE (12/09/2022 6:39 PM EDT) Glucose POC STAT Strip 131(H) 70 - 110 mg/dL 12/09/2022 6:51 PM EDT LABORATORY [facility] Blood Capillary blood specimen / Unknown 12/09/2022 6:39 PM EDT 12/09/2022 6:51 PM EDT Ivory Vitale MD LAB POINT OF CARE TEST DOCKED DEVICE UNSOLICITED RESULTS Performing Organization Address [facility] Co de Phone Number LABORATORY [address] * XR HIP 1 VIEW INCLUDING AP PELVIS (12/09/2022 5:47 PM EDT) Anatomical Region Laterality Modality Lower Extremity, Hip, Pelvis Dig ital Radiography 12/09/2022 5:47 PM EDT Narrative 12/09/2022 6:40 PM EDT EXAM: XR HIP 1V LT W PELVIS 1V HISTORY: Pain/PO COMPARISON: Pelvis x-ray September 23, 2022 FINDINGS: XR HIP 1V LT W PELVIS 1V Interim left hip arthroplasty. The femoral component is dislocated superior laterally with respect to the acetabular component. Skin fay and soft tissue air in keeping with the recent surgery. No fracture. IMPRESSION: The femoral component of the left hip arthroplasty is dislocated superior laterally with respect to the acetabular component. Electronically Signed by Santosh Jane MD on Friday, December 09, 2022 at 18:40. Workstation:[email or web address] Procedure Note Santosh Jane MD - 12/09/2022 EXAM: XR HIP 1V LT W PELVIS 1V HISTORY: Pain/PO COMPARISON: Pelvis x-ray September 23, 2022 FINDINGS: XR HIP 1V LT W PELVIS 1V Interim left hip arthroplasty. The femoral component is dislocatedsuperior laterally with respect to the acetabular component. Skin staplesand soft tissue air in keeping with the recent surgery. No fracture. IMPRESSION: The femoral component of the left hip arthroplasty is dislocated superiorlaterally with respect to the acetabular component. Electronically Signed by Santosh Jane MD on December 09t 18:40. Workstation:[employer] Ivory Vitale MD RADIOLOGY (RAD GEN ERAL) * GLUCOSE METER, POINT OF CARE (12/09/2022 5:00 PM EDT) Glucose POC STAT Strip 87 70 - 110 mg/dL 12/09/2022 6:43 PM EDT LABORATORY [facility] Blood Capillary blood specimen / Unknown 12/09/2022 5:00 PM EDT 12/09/2022 6:43 PM EDT Ivory Vitale MD LAB POINT OF CARE TEST DOCKED DEVICE UNSOLICITED RESULTS LABORATORY [facility] [address] * GLUCOSE METER, POINT OF CARE (12/09/2022 1:54 PM EDT) Glucose POC STAT Strip 88 70 - 110 mg/dL 12/09/2022 2:06 PM EDT LABORATORY [facility] Blood Capillary blood specimen / Unknown 12/09/2022 1:54 PM EDT 12/09/2022 2:06 PM EDT Ivory Vitale MD LAB POINT OF CARE TEST DOCKED DEVICE UNSOLICITED RESULTS Performing Organization Address [facility]/ZIP Co de Phone Number LABORATORY [address] * (ABNORMAL) GLUCOSE METER, POINT OF CARE (12/09/2022 8:30 AM EDT) [facility] Glucose POC STAT Strip 117(H) 70 - 110 mg/dL 12/09/2022 11:09 AM EDT LABORATORY [facility] Blood Capillary blood specimen / Unknown 12/09/2022 8:30 AM EDT 12/09/2022 11:09 AM EDT Ivory Vitale MD LAB POINT OF CARE TEST DOCKED DEVICE UNSOLICITED RESULTS Performing Organization Address City/[facility]/ZIP Co de Phone Number LABORATORY [address] documented in this encounter Visit Diagnoses Diagnosis Primary osteoarthritis of left hip- Primary Primary localized osteoarthrosis, pelvic region and thigh Generalized pain Encounter for therapeutic drug monitoring Other specified pre-operative examination Dislocation of hip joint prosthesis, initial encounter Dislocation of hip prosthesis Dislocation of prosthetic joint documented in this encounter Administered Medications Inactive Administered Medications - up to 3 most recent administrations Medication Order MAR Action Action Date Dose Rate Site Acetaminophen (Tylenol) tab 975 mg 975 mg, Oral, PREOP, First dose on Thu12/09/22 at 0900, Last dose on Thu12/09/22 at 0900, For 1 dose, Administer 60 minutes prior to OR., Pre-Op Given 12/09/2022 8:41 AM EDT 975 mg Acetaminophen (Tylenol) tab 975 mg 975 mg, Oral, Q8H, First dose on Thu12/09/22 at 1900, Until Discontinued, Maximum of 4 grams (4000 mg) per day., Post-op Given 12/10/2022 1:44 PM EDT 975 mg Given 12/10/2022 6:26 AM EDT 975 mg Given 12/09/2022 10:03 PM EDT 975 mg Alum & Mag Hydroxide-Simeth (Maalox Max) suspension 30 mL 30 mL, Oral, Q4H PRN Other, Heartburn, Starting on Thu12/09/22 at 1630, Until Thu12/10/22 at 1845, SHAKE WELL, Post-op Apixaban (Eliquis) tab 2.5 mg 2.5 mg, Oral, BID (.AM/PM), First dose on Thu12/10/22 at 0900, Last dose on Thu01/06/23 at 2100, For 28 days, Post-op Given 12/10/2022 8:00 AM EDT 2.5 mg aspirin chew tab 81 mg 81 mg, Oral, Daily(AM), First dose on Thu12/10/22 at 0900, Until Discontinued Given 12/10/2022 8:00 AM EDT 81 mg benazepril (Lotensin) tab 20 mg 20 mg, Oral, Daily(AM), First dose on Thu12/10/22 at 0900, Until Discontinued Given 12/10/2022 8:00 AM EDT 20 mg Benzocaine-Menthol (Cepacol) lozenge 1 Lozenge 1 Lozenge, Oral, Q2H PRN Sore throat, Starting on Thu12/09/22 at 1630, Until Thu12/10/22 at 1845, Post-op Bisacodyl (Dulcolax) supp 10 mg 10 mg, Rectal, DAILY PRN Other, if no results from MOM by morning, Starting on Thu12/09/22 at 1630, Until Thu12/10/22 at 1845, Post-op Bisacodyl (Dulcolax) tab 10 mg 10 mg, Oral, BEFORE LUNCH, First dose on Thu12/10/22 at 1145, Until Discontinued, This med should NOT be Crushed or Chewed, Post-op Given 12/10/2022 11:27 AM EDT 10 mg Calcium Carbonate 500 mg + Vitamin D 5 mcg (200 units) per tab 1 Tablet, Oral, BID (NOON, 1700), First dose on Thu12/11/22 at 1200, Until Discontinued, Begin POD2 Vitamin D 200 units = 5 mcg, Post-op ceFAZolin (Ancef) 3 g in D5W 100 mL ivpb 3 g, IV Piggyback, Q8H, 2 doses, First dose on Thu12/09/22 at 1900, Last dose on Thu12/10/22 at 0300, Post-op New Bag 12/10/2022 3:00 AM EDT 3 g 110 mL/hr ceFAZolin (Ancef) 3 g in D5W 100 mL ivpb 3 g, IV Piggyback, ONCE, 1 dose, On Thu12/10/22 at 1000, One time order to complete 2 post-op doses New Bag 12/10/2022 9:54 AM EDT 3 g 110 mL/hr celecoxib (CeleBREX) cap 200 mg 200 mg, Oral, DINNER, First dose on Thu12/10/22 at 1700, Last dose on Thu12/16/22 at 1700, For 7 days, Do not use in patients with CrCl less than 60, Post-op cholecalciferol (VIT D3) (Vitamin D3) tab 1,000 Units 1,000 Units, Oral, Daily(AM), First dose on Thu12/11/22 at 0900, Until Discontinued, Orders for Vitamin D3 ( cholecalciferol) will be dispensed as follows: Desired dose: Any dose less than 400 units: use oral liquid (D-Vi-Lulú) 400- 799 units: 400 unit (1 tablet) 800-1499 units: 1000 units (1 tablet) 1162-7094 units: 2000 units( 2 tablets) 2023-9621 units: 3000 units( 3 tablets) 3530-3778 units: 4000 units( 4 tablets) 8630-1366 units: 5000 units( 5 tablets) dextrose 50 % inj 25 mL 25 mL, IV Push, PRN Hypoglycemia, Other, For blood glucose 54 - 69 mg/dL or 70 - 100 mg/dL with symptoms AND patient is unresponsive, NPO, OR unable to swallow, Starting on Thu12/09/22 at 1630, Until Thu12/10/22 at 1845, Administer IV. Recheck blood glucose after 15 minutes. Notify provider., Post-op dextrose 50 % inj 50 mL 50 mL, IV Push, PRN Hypoglycemia, Other, For blood glucose below 54 mg/dL AND patient unresponsive, NPO, OR unable to swallow, Starting on Thu12/09/22 at 1630, Until Thu12/10/22 at 184, Administer IV. Recheck blood glucose in 15 minutes. Notify provider., Post-op diphenhydrAMINE (Benadryl) cap 25 mg 25 mg, Oral, Q6H PRN Itching, Starting on Thu12/09/22 at 1630, Until Thu12/10/22 at 1845, Post-op fentaNYL (PF) inj 50 mcg 50 mcg, Intravenous, ONCE, On Thu12/09/22 at 1930, For 1 dose, When given IV Push its recommended that the dose be given over 3 to 5 minutes., Pre-Op Given 12/09/2022 6:48 PM EDT 50 mcg FLEET ADULT enema 1 Enema 1 Enema, Rectal, DAILY PRN Other, x 1 dose if no results from bisacodyl suppository in 4 hours, Starting on Thu12/09/22 at 1630, Until Thu12/10/22 at 184, Post-op Gabapentin (Neurontin) cap 100 mg 100 mg, Oral, Daily(AM), First dose on Thu12/10/22 at 0900, Until Discontinued Given 12/10/2022 8:00 AM EDT 100 mg Gabapentin (Neurontin) cap 200 mg 200 mg, Oral, HS, First dose on Thu12/09/22 at 2200, Until Discontinued Given 12/09/2022 10:05 PM EDT 200 mg glucagon (Glucagen) inj 1 mg 1 mg, Intramuscular, PRN Hypoglycemia, Other, If patient is unresponsive, or NPO and has no IV access, Starting on Thu12/09/22 at 1630, Until Thu12/10/22 at 1845, NPO and no IV access with either 1) blood glucose less than 100 mg/dL and symptomatic OR 2) blood glucose less than 70 mg/dL and asymptomatic, Post-op Glucose (Glutose 15) 40 % gel 15 g of glucose 15 g of glucose, Oral, PRN Hypoglycemia (low sugar), Other, For blood glucose 54 - 69 mg/dL or 70 - 100 mg/dL with symptoms AND patient alert WITH difficulty chewing/swallowing, Starting on Thu12/09/22 at 1630, Until Thu12/10/22 at 1845, Administer gel. Recheck blood glucose after 15 minutes. Notify provider. 37.5 gram tube = 15 grams glucose = 1 each, Post-op Glucose (Glutose 15) 40 % gel 30 g of glucose 30 g of glucose, Oral, PRN Hypoglycemia (low sugar), Other, For blood glucose below 54 mg/dL AND patient alert WITH difficulty chewing/swallowing, Starting on Thu12/09/22 at 1630, Until Thu12/10/22 at 1845, Administer gel. Recheck blood glucose after 15 minutes. Notify provider. 37.5 gram tube = 15 grams glucose = 1 each, Post-op HYDROmorphone (Dilaudid) inj 0.5 mg 0.5 mg, IV Push, Q1H PRN Pain, Breakthrough, Other, If Patient not responding 30 minutes after acetaminophen, tramadol and oxycodone have been administered, Starting on Thu12/09/22 at 1630, Until Thu12/10/22 at 1845, Post-op insulin aspart (novoLOG) inj flexpen Subcutaneous, W/MEALS AND HS, First dose on Thu12/09/22 at 1700, Until Discontinued, MEDIUM DOSE (Usual starting dose): Sliding Scale Correctional insulin may be given if the patient is NPO. Dose based on standard build from [employer]ulin [employer]culator. Do not modify insulin doses in administration instructions! , Post-op Given 12/10/2022 11:27 AM EDT 2 Units Arm Right Upper Given 12/09/2022 10:13 PM EDT 2 Units A rm Left Upper ketorolac (Toradol) 15 MG/ML inj 15 mg 15 mg, IV Push, Q6H, First dose on Thu12/09/22 at 1800, Last dose on Thu12/10/22 at 1200, For 4 doses, Do not use if patient has NSAID allergy or GFR less than 60. , Post-op Given 12/10/2022 9:53 AM EDT 15 mg Given 12/10/2022 4:00 AM EDT 15 mg Given 12/09/2022 10:07 PM EDT 15 mg lamoTRIgine (LaMICtal) tab 100 mg 100 mg, Oral, BID (.AM/PM), First dose on Thu12/09/22 at 2100, Until Discontinued Given 12/10/2022 8:00 AM EDT 100 mg Given 12/09/2022 10:04 PM EDT 100 mg metoclopramide (Reglan) inj 10 mg 10 mg, IV Push, Q6H PRN Use as second line therapy if nausea and/or vomiting unrelieved with ondansetron., Starting on Thu12/09/22 at 1630, Until Thu12/10/22 at 1845, Post-op Metoprolol Tartrate (Lopressor) tab 50 mg 50 mg, Oral, BID (.AM/PM), First dose on Thu12/09/22 at 2100, Until Discontinued, Hold for HR less than 60 or SBP below 100 and notify service if dose is held Given 12/10/2022 8:00 AM EDT 50 mg Given 12/09/2022 10:04 PM EDT 50 mg milk of magnesia (Mom) oral susp 30 mL 30 mL, Oral, BID PRN Constipation, If no bowel movement in last 48 hours, Starting on Thu12/09/22 at 1630, Until Thu12/10/22 at 1845, Post-op multivitamin (Mvi) 1 Tablet 1 Tablet, Oral, DAILY NOON, First dose on Sabrina 12/11/22 at 1200, Until Discontinued, Begin POD2 , Post-op Normosol-R infusion Intravenous, at 50 mL/hr, May discontinue IV fluids when patient is tolerating oral intake, CONTINUOUS, Starting on Thu12/09/22 at 1045, Until Thu12/09/22 at 1631, Pre-Op Continue from Pre-Op 12/09/2022 11:23 AM EDT New Bag 12/09/2022 8:58 AM EDT 50 mL/hr Normosol-R infusion Intravenous, at 50 mL/hr, May discontinue IV fluids when patient is tolerating oral intake, CONTINUOUS, Starting on Thu12/09/22 at 1715, Until Thu12/10/22 at 1845, Post-op nortriptyline (Pamelor) cap 75 mg 75 mg, Oral, HS, First dose on Thu12/09/22 at 2200, Until Discontinued Given 12/09/2022 10:06 PM EDT 75 mg ondansetron (Zofran) inj 4 mg 4 mg, IV Push, Q6H PRN Nausea, Vomiting, Starting on Thu12/09/22 at 1630, Until Thu12/10/22 at 1845, Post-op oxyCODONE (Oxy IR) tab 10 mg 10 mg, Oral, Q4H PRN 2nd Line for Severe Pain, Starting on Thu12/09/22 at 1630, Until Thu12/10/22 at 1845, Use 2nd Line Therapy if pain not relieved within 2 hours of patient's most recent tramadol dose for severe pain, Post-op oxyCODONE (Oxy IR) tab 5 mg 5 mg, Oral, Q4H PRN 2nd Line for Moderate Pain, Starting on Thu12/09/22 at 1630, Until Thu12/10/22 at 1845, Use 2nd Line Therapy if pain is not relieved within 2 hours of patient's most recent tramadol dose., Post-op pantoprazole (Protonix) tab 20 mg 20 mg, Oral, Daily(AM), First dose on Thu12/10/22 at 0900, Until Discontinued, This med should NOT be Crushed or Chewed Given 12/10/2022 8:00 AM EDT 20 mg QUEtiapine (SEROquel) tab 50 mg 50 mg, Oral, HS, First dose on Thu12/09/22 at 2200, Until Discontinued Given 12/09/2022 10:07 PM EDT 50 mg senna-docusate (Senokot-S) 1 Tablet 1 Tablet, Oral, BID (.AM/PM), First dose on Thu12/09/22 at 2100, Until Discontinued, Begin with the evening dose the day of surgery Hold for loose stools, Post-op Given 12/10/2022 8:00 AM EDT 1 Tablet Given 12/09/2022 10:02 PM EDT 1 Tablet traMADol (Ultram) tab 100 mg 100 mg, Oral, Q4H PRN 1st Line for Severe Pain, Starting on Thu12/09/22 at 1630, Until Thu12/10/22 at 1845, No more than 400 mg in 24 hours, Post-op Given 12/09/2022 11:34 PM EDT 100 mg traMADol (Ultram) tab 50 mg 50 mg, Oral, Q4H PRN 1st Line for Moderate Pain, Starting on Thu12/09/22 at 1630, Until Thu12/10/22 at 1845, No more than 400 mg in 24 hours, Post-op Given 12/10/2022 6:26 AM EDT 50 mg Given 12/09/2022 4:40 PM EDT 50 mg documented in this encounter Active and Recently Administered Medications Times are shown in EDT. Scheduled Medication Order 12/08/2022 12/09/2022 12/10/2022 Acetaminophen (Tylenol) tab 975 mg (COMPLETED) 975 mg, Oral, PREOP, First dose on Thu12/09/22 at 0900, Last dose on Thu12/09/22 at 0900, For 1 dose, Administer 60 minutes prior to OR., Pre-Op 08 (Given - Provider: Lindsey Cheng RN) Acetaminophen (Tylenol) tab 975 mg 975 mg, Oral, Q8H, First dose on Thu12/09/22 at 1900, Until Discontinued, Maximum of 4 grams (4000 mg) per day., Post-op 2202 (Given - Provider: Farheen Taylor RN - Comment: patient in OR til now) 0626 (Given - Provider: Farheen Taylor RN)1344 (Given - Provider: Lulú Hernandez, SHAWNA) Apixaban (Eliquis) tab 2.5 mg 2.5 mg, Oral, BID (.AM/PM), First dose on Thu12/10/22 at 0900, Last dose on Thu01/06/23 at 2100, For 28 days, Post-op 0800 (Given - Provid er: Lulú Hernandez RN) aspirin chew tab 81 mg 81 mg, Oral, Daily(AM), First dose on Thu12/10/22 at 0900, Until Discontinued 0800 (Given - Provid er: Lulú Hernandez RN) benazepril (Lotensin) tab 20 mg 20 mg, Oral, Daily(AM), First dose on Thu12/10/22 at 0900, Until Discontinued 0800 (Given - Provid er: Lulú Hernandez RN) Bisacodyl (Dulcolax) tab 10 mg 10 mg, Oral, BEFORE LUNCH, First dose on Thu12/10/22 at 1145, Until Discontinued, This med should NOT be Crushed or Chewed, Post-op 1127 (Given - Provid er: Lulú Hernandez, RN) Calcium Carbonate 500 mg + Vitamin D 5 mcg (200 units) per tab 1 Tablet, Oral, BID (NOON, 1700), First dose on Thu12/11/22 at 1200, Until Discontinued, Begin POD2 Vitamin D 200 units = 5 mcg, Post-op ceFAZolin (Ancef) 3 g in D5W 100 mL ivpb (COMPLETED) 3 g, IV Piggyback, PREOP, 1 dose, First dose on Thu12/09/22 at 0900, Administer 60 minutes prior to skin incision, Pre-Op 1127 (New Bag - Provider: Gracie Huertas CRNA)1307 (Anes Intra-Op Fluid - Provider: Gracie Huertas CRNA) ceFAZolin (Ancef) 3 g in D5W 100 mL ivpb 3 g, IV Piggyback, Q8H, 2 doses, First dose on Thu12/09/22 at 1900, Last dose on Thu12/10/22 at 0300, Post-op 1900 (Due) 0300 (New Bag - Provider: Farheen Taylor RN) ceFAZolin (Ancef) 3 g in D5W 100 mL ivpb (COMPLETED) 3 g, IV Piggyback, ONCE, 1 dose, On Thu12/10/22 at 1000, One time order to complete 2 post-op doses 0954 (New Bag - Provider: Lulú Hernandez, RN) celecoxib (CeleBREX) cap 200 mg 200 mg, Oral, DINNER, First dose on Thu12/10/22 at 1700, Last dose on Thu12/16/22 at 1700, For 7 days, Do not use in patients with CrCl less than 60, Post-op cholecalciferol (VIT D3) (Vitamin D3) tab 1,000 Units 1,000 Units, Oral, Daily(AM), First dose on Thu12/11/22 at 0900, Until Discontinued, Orders for Vitamin D3 ( cholecalciferol) will be dispensed as follows: Desired dose: Any dose less than 400 units: use oral liquid (D-Vi-Lulú) 400- 799 units: 400 unit (1 tablet) 800-1499 units: 1000 units (1 tablet) 4274-7738 units: 2000 units( 2 tablets) 2888-9332 units: 3000 units( 3 tablets) 5638-7175 units: 4000 units( 4 tablets) 7564-5749 units: 5000 units( 5 tablets) fentaNYL (PF) inj 50 mcg (COMPLETED) 50 mcg, Intravenous, ONCE, On Thu12/09/22 at 1930, For 1 dose, When given IV Push its recommended that the dose be given over 3 to 5 minutes., Pre-Op 1848 (Given - Provider: Criss Olmos RN) Gabapentin (Neurontin) cap 100 mg 100 mg, Oral, Daily(AM), First dose on Thu12/10/22 at 0900, Until Discontinued 0800 (Given - Provid er: Lulú Hernandez RN) Gabapentin (Neurontin) cap 200 mg 200 mg, Oral, HS, First dose on Thu12/09/22 at 2200, Until Discontinued 2204 (Given - Provider: Farheen Taylor RN) insulin aspart (novoLOG) inj flexpen Subcutaneous, W/MEALS AND HS, First dose on Thu12/09/22 at 1700, Until Discontinued, MEDIUM DOSE (Usual starting dose): Sliding Scale Correctional insulin may be given if the patient is NPO. Dose based on standard build from Insulin Calculator. Do not modify insulin doses in administration instructions! , Post-op 1700 (Not Given - Provider: Rosalia Hays LPN - Reason: Parameter(s) Not Met)2213 (Given - Provider: Farheen Taylor RN) 0800 (Not Given - Provider: Lulú Hernandez RN - Reason: Parameter(s) Not Met)1127 (Given - Provider: Lulú Hernandez RN) ketorolac (Toradol) 15 MG/ML inj 15 mg 15 mg, IV Push, Q6H, First dose on Thu12/09/22 at 1800, Last dose on Thu12/10/22 at 1200, For 4 doses, Do not use if patient has NSAID allergy or GFR less than 60. , Post-op 2206 (Given - Provider: Farheen Taylor RN - Comment: patient in OR til now) 0400 (Given - Provider: Farheen Taylor RN - Comment: in OR til later)0953 (Given - Provider: Lulú Hernandez RN) lamoTRIgine (LaMICtal) tab 100 mg 100 mg, Oral, BID (.AM/PM), First dose on Thu12/09/22 at 2100, Until Discontinued 2203 (Given - Provider: Farheen Taylor RN) 0800 (Given - Provider: Lulú Hernandez RN) Metoprolol Tartrate (Lopressor) tab 50 mg 50 mg, Oral, BID (.AM/PM), First dose on Thu12/09/22 at 2100, Until Discontinued, Hold for HR less than 60 or SBP below 100 and notify service if dose is held 2203 (Given - Provider: Farheen Taylor RN) 0800 (Given - Provider: Lulú Hernandez RN) multivitamin (Mvi) 1 Tablet 1 Tablet, Oral, DAILY NOON, First dose on Thu12/11/22 at 1200, Until Discontinued, Begin POD2 , Post-op nortriptyline (Pamelor) cap 75 mg 75 mg, Oral, HS, First dose on Thu12/09/22 at 2200, Until Discontinued 2205 (Given - Provider: Farheen Taylor RN) pantoprazole (Protonix) tab 20 mg 20 mg, Oral, Daily(AM), First dose on Thu12/10/22 at 0900, Until Discontinued, This med should NOT be Crushed or Chewed 799 (Given - Provid er: Lulú Hernandez RN) QUEtiapine (SEROquel) tab 50 mg 50 mg, Oral, HS, First dose on Thu12/09/22 at 2200, Until Discontinued 2206 (Given - Provider: Farhene Taylor RN) senna-docusate (Senokot-S) 1 Tablet 1 Tablet, Oral, BID (.AM/PM), First dose on Thu12/09/22 at 2100, Until Discontinued, Begin with the evening dose the day of surgery Hold for loose stools, Post-op 2201 (Given - Provider: Farehen Taylor RN) 0800 (Given - Provider: Lulú Hernandez RN) Continuous Medication Order 12/08/2022 12/09/2022 12/10/2022 Normosol-R infusion (CANCELED) Intravenous, at 50 mL/hr, May discontinue IV fluids when patient is tolerating oral intake, CONTINUOUS, Starting on Thu12/09/22 at 1045, Until Thu12/09/22 at 1631, Pre-Op 0858 (New Bag - Provider: Yuliana Orellana RN)1123 (Continue from Pre-Op - Provider: Gracie Huertas CRNA)1307 (Anes Intra-Op Fluid - Provider: Gracie Huertas CRNA) Normosol-R infusion Intravenous, at 50 mL/hr, May discontinue IV fluids when patient is tolerating oral intake, CONTINUOUS, Starting on Thu12/09/22 at 1715, Until Thu12/10/22 at 1845, Post-op 1715 (Finish Infusion - Provider: Rosalia Hays LPN) PRN Medication Order 12/08/2022 12/09/2022 12/10/2022 Alum & Mag Hydroxide-Simeth (Maalox Max) suspension 30 mL 30 mL, Oral, Q4H PRN Other, Heartburn, Starting on Thu12/09/22 at 1630, Until Thu12/10/22 at 1845, SHAKE WELL, Post-op Benzocaine-Menthol (Cepacol) lozenge 1 Lozenge 1 Lozenge, Oral, Q2H PRN Sore throat, Starting on Thu12/09/22 at 1630, Until Thu12/10/22 at 1845, Post-op Bisacodyl (Dulcolax) supp 10 mg 10 mg, Rectal, DAILY PRN Other, if no results from MOM by morning, Starting on Thu12/09/22 at 1630, Until Thu12/10/22 at 1845, Post-op bupivacaine (Sensorcaine) 0.25 % inj (CANCELED) ONCE PRN INTRA PROCEDURE, Starting on Thu12/09/22 at 1214, Until Thu12/09/22 at 1331, Intra-Op 1319 (Given - Provider: Ivory Vitale MD) dextrose 50 % inj 25 mL 25 mL, IV Push, PRN Hypoglycemia, Other, For blood glucose 54 - 69 mg/dL or 70 - 100 mg/dL with symptoms AND patient is unresponsive, NPO, OR unable to swallow, Starting on Thu12/09/22 at 1630, Until Thu12/10/22 at 1845, Administer IV. Recheck blood glucose after 15 minutes. Notify provider., Post-op dextrose 50 % inj 50 mL 50 mL, IV Push, PRN Hypoglycemia, Other, For blood glucose below 54 mg/dL AND patient unresponsive, NPO, OR unable to swallow, Starting on Thu12/09/22 at 1630, Until Thu12/10/22 at 1845, Administer IV. Recheck blood glucose in 15 minutes. Notify provider., Post-op diphenhydrAMINE (Benadryl) cap 25 mg 25 mg, Oral, Q6H PRN Itching, Starting on Thu12/09/22 at 1630, Until Thu12/10/22 at 1845, Post-op FLEET ADULT enema 1 Enema 1 Enema, Rectal, DAILY PRN Other, x 1 dose if no results from bisacodyl suppository in 4 hours, Starting on Thu12/09/22 at 1630, Until Thu12/10/22 at 1845, Post-op gentamicin 240 mg in sodium chloride IR 0.9 % 3,000 mL irrigation (CANCELED) ONCE PRN INTRA PROCEDURE, Starting on Thu12/09/22 at 1214, Until Thu12/09/22 at 1331, Intra-Op 1214 (Given - Provider: Ivory Vitale MD) glucagon (Glucagen) inj 1 mg 1 mg, Intramuscular, PRN Hypoglycemia, Other, If patient is unresponsive, or NPO and has no IV access, Starting on Thu12/09/22 at 1630, Until Thu12/10/22 at 1845, NPO and no IV access with either 1) blood glucose less than 100 mg/dL and symptomatic OR 2) blood glucose less than 70 mg/dL and asymptomatic, Post-op Glucose (Glutose 15) 40 % gel 15 g of glucose 15 g of glucose, Oral, PRN Hypoglycemia (low sugar), Other, For blood glucose 54 - 69 mg/dL or 70 - 100 mg/dL with symptoms AND patient alert WITH difficulty chewing/swallowing, Starting on Thu12/09/22 at 1630, Until Thu12/10/22 at 1845, Administer gel. Recheck blood glucose after 15 minutes. Notify provider. 37.5 gram tube = 15 grams glucose = 1 each, Post-op Glucose (Glutose 15) 40 % gel 30 g of glucose 30 g of glucose, Oral, PRN Hypoglycemia (low sugar), Other, For blood glucose below 54 mg/dL AND patient alert WITH difficulty chewing/swallowing, Starting on Thu12/09/22 at 1630, Until Thu12/10/22 at 1845, Administer gel. Recheck blood glucose after 15 minutes. Notify provider. 37.5 gram tube = 15 grams glucose = 1 each, Post-op HYDROmorphone (Dilaudid) inj 0.5 mg 0.5 mg, IV Push, Q1H PRN Pain, Breakthrough, Other, If Patient not responding 30 minutes after acetaminophen, tramadol and oxycodone have been administered, Starting on Thu12/09/22 at 1630, Until Thu12/10/22 at 1845, Post-op melatonin tab 3 mg 3 mg, Oral, HS PRN insomnia, Starting on Thu12/09/22 at 1116, Until Thu12/10/22 at 1845 metoclopramide (Reglan) inj 10 mg 10 mg, IV Push, Q6H PRN Use as second line therapy if nausea and/or vomiting unrelieved with ondansetron., Starting on Thu12/09/22 at 1630, Until Thu12/10/22 at 1845, Post-op milk of magnesia (Mom) oral susp 30 mL 30 mL, Oral, BID PRN Constipation, If no bowel movement in last 48 hours, Starting on Thu12/09/22 at 1630, Until Thu12/10/22 at 1845, Post-op ondansetron (Zofran) inj 4 mg 4 mg, IV Push, Q6H PRN Nausea, Vomiting, Starting on Thu12/09/22 at 1630, Until Thu12/10/22 at 1845, Post-op oxyCODONE (Oxy IR) tab 10 mg 10 mg, Oral, Q4H PRN 2nd Line for Severe Pain, Starting on Thu12/09/22 at 1630, Until Thu12/10/22 at 1845, Use 2nd Line Therapy if pain not relieved within 2 hours of patient's most recent tramadol dose for severe pain, Post-op oxyCODONE (Oxy IR) tab 5 mg 5 mg, Oral, Q4H PRN 2nd Line for Moderate Pain, Starting on Thu12/09/22 at 1630, Until Thu12/10/22 at 1845, Use 2nd Line Therapy if pain is not relieved within 2 hours of patient's most recent tramadol dose., Post-op traMADol (Ultram) tab 100 mg 100 mg, Oral, Q4H PRN 1st Line for Severe Pain, Starting on Thu12/09/22 at 1630, Until Thu12/10/22 at 1845, No more than 400 mg in 24 hours, Post-op 2334 (Given - Provider: Farheen Taylor RN - Comment: 07/26 pain) traMADol (Ultram) tab 50 mg 50 mg, Oral, Q4H PRN 1st Line for Moderate Pain, Starting on Thu12/09/22 at 1630, Until Thu12/10/22 at 1845, No more than 400 mg in 24 hours, Post-op 1640 (Given - Provider: Rosalia Hays LPN) 0626 (Given - Provider: Farheen Taylor RN - Comment: 03/28 premedcate for therapy) Tranexamic Acid (Cyklokapron) inj (CANCELED) ONCE PRN INTRA PROCEDURE, Starting on Thu12/09/22 at 1214, Until Thu12/09/22 at 1331, Intra-Op 1313 (Given - Provider: Tu Haque PA-C - Comment: mixed with 10ml nss) documented in this encounter Advance Directives Latest [...] the patient have Health Care Power of Representative Phlebotomy Services? No Full Code 03/12/2022 1:21 AM 03/18/2022 [...] the patient have Health Care Power of Representative Phlebotomy Services? No Care Teams Car Salter Relationship Specialty Start Date End Date Rajendra Sanchez MD [address] [place] [address] PCP - General Internal Medicine 04/23/18 documented as of this encounter
--- OUTSIDE RECORDS SUMMARY | 2023-05-19 03:25 | External Medical Summary ---
Author Name Unknown Address Unknown Organization [place] [address] Laboratory Report Ordering Provider Test Date Status DEFAULT,POCT 12/09/2022 08:30:09 Final Observation Date Value Abnormality Reference (Units ) Status [facility] GLUCOSE POC STAT STRIP 12/09/2022 08:30:09 117 Above high normal 70-110 (mg/dL) [place] [address]
--- OUTSIDE RECORDS SUMMARY | 2023-05-19 03:25 | External Medical Summary ---
Author Name Unknown Address Unknown Organization [place] [address] Laboratory Report Ordering Provider Test Date Status DEFAULT,POCT 12/09/2022 17:00:16 Final Observation Date Value Abnormality Reference (Units ) Status [facility] GLUCOSE POC STAT STRIP 12/09/2022 17:00:16 87 70-110 (mg/dL) [place] [address]
--- OUTSIDE RECORDS SUMMARY | 2023-05-19 03:26 | External Medical Summary | Summary of Care ---
Author Name Unknown Organization [facility] Address [address] [place] [address] Care Team Providers Care Scada Engineer Name Role Phone Rajendra Sanchez MD Primary Care Provider Reason for Referral * Evaluate & Treat - Unlimited Visits (Within 30 days (routine)) - Pending Review Specialty Diagnoses / Procedures Referred By Adrian bush Referred To Contact Physical Therapy / Physical Medicine And Rehab Diagnoses Primary osteoarthritis of left hip Collin Mon MD [address] [facility] [place] [address] Referral ID Status Reason Start Date Expiration Date Visits Requested Visits Authorized [id number] Pending Review Specialty Services Required 11/21/[phone] Question Answer Referral Priority Within 30 days (routine) Where should this appointment be scheduled? External Comments Postop Left ZENA Encounter Details Date Type Department Care Team Description 11/21/2022 Orders Only Orthopaedics [facility] [place] [address] [place] [address] [place] [id number] Collin Mon MD [address] [facility] [place] [place] [address] Primary osteoarthritis of left hip* Allergies No known active allergiesdocumented as of this encounter (statuses as of 11/21/2022) Medications Medication Sig Dispensed Refills Start Date [...] once. TAKE NIGHT BEFORE SURGERY 0 Active documented as of this encounter (statuses as of 11/21/2022) Active Problems Problem Noted Date Primary osteoarthritis of left hip 10/10 Overview: Added automatically from request for surgery [id number] Generalized pain 10/10/2022 Overview: Added automatically from request for surgery [id number] Encounter for therapeutic drug monitorin g 10/10/2022 Overview: Added automatically from request for surgery [id number] Other specified pre-operative examinatio n 10/10/2022 Overview: Added automatically from request for surgery [id number] Anemia 06/09/2021 Sepsis 06/08/2021 Cellulitis of right [...] as of this encounter (statuses as of 11/21/2022) Resolved Problems Problem Noted Date Resolved Date SBO (small bowel obstruction) 03/12/2022 High anion gap metabolic acidosis 03/12/2022 03/18/2022 SANDRA (acute kidney injury) 03/12/20222022 Shock 03/12/2022 03/18/2022 documented as of this encounter (statuses as of 11/21/2022) Immunizations Name Administration Dates Next Due SEASONAL [...] 12/09/2022 Hospital Encounter Collin Mon MD [address] [place] [place] [address] 12/09/2022 Anesthesia Event Janice Wills CRNP [address] [place] [address] [place] [address] 12/09/2022 Surgery Collin Mon MD [address] [facility] [place] [address] ARTHROPLASTY TOTAL HIP Scheduled Procedures Name Priority Associated Diagnoses Date/Ti me ARTHROPLASTY TOTAL HIP Primary osteoarthritis of left hip Generalized pain Encounter for therapeutic drug monitoring Other specified pre-operative examination 12/09/2022 11:00 AM EDT Scheduled Referrals Name Type Priority Associated Diagnoses Orde r Schedule PHYSICAL THERAPY REFERRAL OP Referral Within 30 days (routine) Primary osteoarthritis of left hip Ordered: 11/21/2022 Health Maintenance Due Date Last Done Comments DISCUSS TOBACCO CESSATION (REFER TO SMARTSET #8178) 1960 COVID-19 Vaccine (#1) 1960 Pneumococcal Vaccine: [...] 11/05/2027 11/04/2022, 07/2022, 02/05/2021, Additional history exists HIV Screening Completed [...] Not on filedocumented as of this encounter Visit Diagnoses Diagnosis Primary osteoarthritis of left hip Primary localized osteoarthrosis, pelvic region and thigh Generalized pain Encounter for therapeutic drug monitoring Other specified pre-operative examination Primary osteoarthritis of left hip- Primary Primary localized osteoarthrosis, pelvic region and thigh Primary osteoarthritis of left hip Primary localized osteoarthrosis, pelvic region and thigh Generalized pain Encounter for therapeutic drug monitoring Other specified pre-operative examination documented in this encounter Advance Directives Latest Code Status on File Code Status Date Activated Date Inactivated Comments Full Code 05/28/2022 11:56 AM 05/30/2022 3:43 PM This order reflects the patients wishes and were consensually agreed upon. Question Answer Comments Discussion of Advance Directives occurred with: Patient Does the patient have a Living Will? No Does the patient have Health Care Power of Lumber Straightener? No Code Status History Code Status Date [...] the patient have Health Care Power of Lumber Straightener? No Care Teams Scada Engineer Relationship Specialty Start Date End Date Rajendra Sanchez MD [address] [place] [address] PCP - General Internal Medicine 04/23/18 documented as of this encounter
--- OUTSIDE RECORDS SUMMARY | 2023-05-19 03:26 | External Medical Summary | Summary of Care ---
Author Name Unknown Organization [facility] Address [address] [facility] [place] [address] Care Team Providers Care Brewery Pumper Name Role Phone Rajendra Sanchez MD Primary Care Provider Encounter Details Date Type Department Care Team Description 11/25/2022 Education Visit Orthopaedics [facility] [address] [place] [address] [facility] [address] [place] [address] [place] [phone] Melissa Tyson RN Primary osteoarthritis of left hip* Allergies No known active allergiesdocumented as of this encounter (statuses as of 11/25/2022) Medications Medication Sig Dispensed Refills Start Date [...] as of this encounter (statuses as of 11/25/2022) Active Problems Problem Noted Date Primary osteoarthritis of left hip 10/10 Overview: Added automatically from request for surgery [id number] Generalized pain 10/10/2022 Overview: Added automatically from request for surgery [id number] Encounter for therapeutic drug monitorin g 10/10/2022 Overview: Added automatically from request for surgery [id number] Other specified pre-operative examinatio n 10/10/2022 Overview: Added automatically from request for surgery [id number] Anemia 06/09/2021 Sepsis 06/08/2021 Cellulitis of right [...] as of this encounter (statuses as of 11/25/2022) Resolved Problems Problem Noted Date Resolved Date SBO (small bowel obstruction) 03/12/2022 High anion gap metabolic acidosis 03/12/2022 03/18/2022 SANDRA (acute kidney injury) 03/12/20222022 Shock 03/12/2022 03/18/2022 documented as of this encounter (statuses as of 11/25/2022) Immunizations Name Administration Dates Next Due SEASONAL [...] as of this encounter Progress Notes * Melissa Tyson RN - 11/25/2022 3:40 PM EDT Pt. attended the Joint Replacement Class, on 11/25/2022. This educational class is a one hour comprehensive review of the Enhanced Recovery Joint Program; certified by [employer], here at [facility]. The class is providing important information to prepare patient for an elective total joint procedure L ZENA. documented in this encounter Plan of Treatment Upcoming Encounters Date Type Specialty Care Team Description 12/09/2022 Hospital Encounter Collin Mon MD [address] [place] [place] [address] 12/09/2022 Anesthesia Event Janice Wills CRNP [address] [place] [address] [place] [address] 12/09/2022 Surgery Collin Mon MD [address] [place] [address] ARTHROPLASTY TOTAL HIP 12/12/2022 Rehab Services Physical Medicin e And Rehab Criss Lewis, PT [address] [place] [address] 12/16/2022 Rehab Services Physical Medicin e And Rehab Criss Lewis, PT [address] [place] [address] 12/18/2022 Rehab Services Physical Medicin e And Rehab Criss Lewis, PT [address] [place] [address] 12/22/2022 Rehab Services Physical Medicin e And Rehab Criss Lewis, PT [address] [place] [address] 12/24/2022 Rehab Services Physical Medicin e And Rehab Elda Espinosa, GILL BOX OPERATOR [address] [place] [address] 12/26/2022 Rehab Services Physical Medicin e And Rehab Elda Espinosa, GILL BOX OPERATOR [address] [place] [address] Scheduled Procedures Name Priority Associated Diagnoses Date/Ti me ARTHROPLASTY TOTAL HIP Primary osteoarthritis of left hip Generalized pain Encounter for therapeutic drug monitoring Other specified pre-operative examination 12/09/2022 11:00 AM EDT Health Maintenance Due Date Last Done Comments DISCUSS TOBACCO CESSATION (REFER TO SMARTSET #3517) 1960 COVID-19 Vaccine (#1) 1960 Pneumococcal Vaccine: [...] 11/04/2022, 05/02/2022, 05/29/2022, Additional history exists GFR 11/05/2023 11/04/2022, [...] the patient have Health Care Power of Electronic Console Display Operator? No Code Status History Code Status Date [...] the patient have Health Care Power of Electronic Console Display Operator? No Care Teams Brewery Pumper Relationship Specialty Start Date End Date Rajendra Sanchez MD [address] [facility] [place] [address] PCP - General Internal Medicine 04/23/18 documented as of this encounter
--- OUTSIDE RECORDS SUMMARY | 2023-05-19 03:26 | External Medical Summary | Summary of Care ---
Author Name Unknown Organization [facility] Address [address] [facility] [place] [place] [address] Care Team Providers Care Die Forger Name Role Phone Rajendra Sanchez MD Primary Care Provider Reason for Visit * Reason Onset Date Comments Surgery 11/18/2022 Encounter Details Date Type Department Care Team Description 11/18/[address] [facility] [address] [facility] [address] [facility] [place] [id number] Kyara Hayes RN Surgery Allergies No known active allergiesdocumented as of [...] Overview: Added automatically from request for surgery [id number] Generalized pain 10/10/2022 Overview: Added automatically from request for surgery [id number] Encounter for therapeutic drug monitorin g 10/10/2022 Overview: Added automatically from request for surgery [id number] Other specified pre-operative examinatio n 10/10/2022 Overview: Added automatically from request for surgery [id number] Anemia 06/09/2021 Sepsis 06/08/2021 Cellulitis of right [...] as of this encounter Miscellaneous Notes * Telephone Encounter - Kyara Hayes RN - 11/21/2022 1:48 PM EDT The patient LVM he is planning to start PT at [facility] postop. I called [facility] [phone] and fax # is [phone]. Pt is aware that script will be sent. * Telephone Encounter - Kyara Hayes RN - 11/18/2022 6:07 PM EDT The patient LVM re: colonoscopy scheduling. I returned his call, he is scheduled 01/24/23. Advised should not be a problem as he will be finished with the Eliquis course. documented in this encounter Plan of Treatment Upcoming Encounters Date Type Specialty Care Team Description 12/09/2022 Hospital Encounter Collin Mon MD [address] [place] [address] 12/09/2022 Anesthesia Event Janice Wills CRNP [address] [facility] [place] [address] 12/09/2022 Surgery Collin Mon MD [address] [place] [address] ARTHROPLASTY TOTAL HIP Scheduled Procedures Name Priority Associated Diagnoses Date/Ti me ARTHROPLASTY TOTAL HIP Primary osteoarthritis of left hip Generalized pain Encounter for therapeutic drug monitoring Other specified pre-operative examination 12/09/2022 11:00 AM EDT Health Maintenance Due Date Last Done Comments DISCUSS TOBACCO CESSATION (REFER TO SMARTSET #[id number]) 1960 COVID-19 Vaccine (#1) 1960 Pneumococcal Vaccine: [...] the patient have Health Care Power of Mailroom Assistant? No Code Status History Code Status Date [...] the patient have Health Care Power of Mailroom Assistant? No Care Teams Die Forger Relationship Specialty Start Date End Date Rajendra Sanchez MD [address] [place] [address] [address] PCP - General Internal Medicine 04/23/18 documented as of this encounter
[2023-05-19 07:53] LABS: Hemoglobin 11.3 g/dl (14.0-18.0); Mean Corpuscular Hemoglobin 27.5 pg (25.0-34.0); Mean Corpuscular Hgb Conc 31.4 g/dL (32.0-36.0); Mean Corpuscular Volume 87.6 fL (80.0-100.0); Mean Platelet Volume 9.9 fL (9.4-12.4); Platelet Count 252 K/uL (130-400); RDW Coefficient of Variation 14.5 % (11.5-14.5); Red Blood Count 4.11 M/uL (4.70-6.10); White Blood Count 8.97 K/ul (4.8-10.8)
[2023-05-19 08:30] LABS: Folate (Folic Acid),Ser orPlas 17.14 ng/ml (>5.38)
[2023-05-19 08:35] LABS: Estimated Average Glucose 160 mg/dl; Hemoglobin A1C 7.2 % (4.5-5.6)
[2023-05-19 08:42] LABS: Albumin Level 3.8 gm/dl (3.4-5.0); Bilirubin,Total 0.5 mg/dl (0.2-1.0); Calcium 8.9 mg/dl (8.6-10.3); Magnesium 1.9 mg/dl (1.7-2.4); Potassium 4.8 mmol/L (3.5-5.1)
[2023-05-19 08:49] LABS: Albumin Globulin Ratio 1.3 (0.9-2); BUN Creatinine Ratio 15.1 (10-20); Chol HDL Ratio 3.9 (0-5); Est GFR (African American) 113.6 ml/min; Total Protein 6.8 gm/dl (6.0-8.3)
[2023-05-19] MEDS ORDERED: PANTOprazole 40 MG TAB PO SCH (09:00)
[2023-05-19] MEDS: hydroCHLOROthiazide 25 MG TAB PO SCH (09:07)
[2023-05-19] MEDS: PANTOprazole 40 MG TAB PO SCH (09:08)
[2023-05-19] MEDS ORDERED: lamoTRIgine 100 MG TAB PO SCH (09:45)
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
[2023-05-19 09:47] LABS: Ferritin 59.8 ng/ml (8-388)
[2023-05-19] MEDS: FERROUS SULFATE 325 MG TAB PO SCH (11:54)
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
[2023-05-19] MEDS: POT PHOSPHATE MONOBASIC W/ SOD TAB PO SCH (13:37)
[2023-05-19] MEDS ORDERED: NORTRIPTYLINE HCL 25 MG CAP PO SCH (21:00)
--- NOTE | 2023-05-20 13:41 | Electrocardiogram Report ---
Test Reason : Blood Pressure : / mmHG Vent. Rate : 129 BPM Atrial Rate : 129 BPM P-R Int : 160 ms QRS Dur : 074 ms QT Int : 290 ms P-R-T Axes : 058 044 032 degrees QTc Int : 424 ms Sinus tachycardia Otherwise normal ECG No previous ECGs available Confirmed by Enrrique Burt ([id number]) on 05/20/2023 1:40:43 PM Referred By: REFERRED SELF Confirmed By:Enrrique Burt
== END 2023-05-19 16:52 | disposition home or self-care (01) | DRG 71 ==
LOC: ED 07:24 → EDINP 15:28